=== PATIENT | female | born 1970 | race Caucasian/White ===

== ENCOUNTER → 2020-03-03 | Outpatient (CLI) | payer BC, SELFPAY ==
[2020-03-03 10:42] VITALS: BMI 24.5
[2020-03-08 22:34] LABS: HPV APTIMA, High Risk Negative (Negative)
== END | disposition home or self-care (01) ==
LOC: LABSPEC 13:51
PROVIDERS: PCP Family Medicine; Referring Provider Obstetrics & Gynecology; Visit Provider Obstetrics & Gynecology
DX: Z12.4 Encounter for screening for malignant neoplasm of cervix (principal)
CPT/HCPCS: 87624; 88175; G0145

== ENCOUNTER → 2020-03-24 08:50 | Outpatient (CLI) | payer BC, SELFPAY ==
[2020-03-03 10:42] VITALS: BMI 24.5
--- NOTE | 2020-03-24 08:51 | BI_ITS ---
MAMMOGRAPHY - BILATERAL DIAGNOSTIC REASON FOR EXAM: Female, 49 years old. History of left breast lump since May 2019. Occasional tenderness. PERTINENT HISTORY: TECHNIQUE: Digital bilateral breast seamus (3D mammographic acquisition) in the CC and MLO projections. 2-D mediolateral oblique (MLO) and craniocaudad (CC) views of both breasts were obtained. An exaggerated craniocaudad view of the left breast was obtained as well. CAD: Full Field Digital Mammography with Computer Added Detection was performed. COMPARISON: Comparison is made with prior outside examination dated 05/21/2019. FINDINGS: Breast Composition: The breasts are heterogeneously dense, which may obscure small masses. There are no dominant masses or suspicious calcifications. Stable benign-appearing bilateral axillary. No other significant abnormalities are identified. There has been no significant change since the prior study. BI/DIAG MAMM W/CAD, BILAT IMPRESSION: Stable bilateral diagnostic mammogram. With the patient''s history of a palpable lump in the axillary region of the left breast, correlation with ultrasound is recommended. ASSESSMENT CATEGORY: BIRADS Category 0: Incomplete. Need additional imaging evaluation. A letter regarding these results will be sent to the patient by the facility within 30 days. Approximately 10% of breast cancers are not detected by mammography. A normal mammogram should not delay biopsy of a clinically suspicious abnormality. Electronically Signed: Gwyn Nguyen, at 10:39 EDT , Service support ,
--- NOTE | 2020-03-24 08:51 | US_ITS ---
STUDY: ULTRASOUND BREAST - LEFT REASON FOR EXAM: Female, 49 years old. Palpable lump left breast. TECHNIQUE: Axial and longitudinal images of the LEFT breast were performed with a high resolution ultrasound transducer. # OF IMAGES: 13 COMPARISON: Comparison is made with prior mammogram done earlier today. FINDINGS: LEFT Breast: The palpable abnormality corresponds to a 1.1 cm x 1.9 cm x 0.6 cm benign-appearing lymph node. US/Breast Limited Unilateral IMPRESSION: The palpable abnormality corresponds to a 1.1 cm x 1.9 cm x 0.6 cm benign-appearing lymph node. ASSESSMENT CATEGORY: BIRADS Category 2: Benign. A letter regarding these results will be sent to the patient by the facility within 30 days. Electronically Signed: Gwyn Nguyen, at 12:30 EDT , Service support ,
== END ==
PROVIDERS: PCP Family Medicine; Referring Provider Obstetrics & Gynecology; Visit Provider Obstetrics & Gynecology
DX: N63.20 Unspecified lump in the left breast, unspecified quadrant (principal)
CPT/HCPCS: 76642; 77062; 77066; G0279

== ENCOUNTER → 2021-04-14 08:45 | Outpatient (CLI) | payer BC, SELFPAY ==
--- NOTE | 2021-04-14 08:46 | BI_ITS ---
MAMMOGRAPHY - BILATERAL SCREENING REASON FOR EXAM: Female, 50 years old. Routine annual screening examination. PERTINENT HISTORY: Non-contributory. TECHNIQUE: Digital bilateral breast jorge (3D mammographic acquisition) in the CC and MLO projections. 2-D mediolateral oblique (MLO) and craniocaudad (CC) views of both breasts were obtained. CAD: Full Field Digital Mammography with Computer Added Detection was performed. COMPARISON: Comparison is made with prior study of 03/24/2020. FINDINGS: Breast Composition: The breasts are extremely dense, which lowers the sensitivity of mammography. There is a 1.5 cm x 1.1 cm nodular density in the upper anterior slightly medial aspect of the right breast. Correlation with ultrasound is recommended. No other significant abnormalities are identified. BI/SCRN MAMM (CAD)W/JORGE BILAT IMPRESSION: There is a new 1.5 cm x 1.1 cm nodular density in the upper anterior slightly medial aspect of the right breast. Targeted ultrasound examination is recommended for further evaluation. ASSESSMENT CATEGORY: BIRADS Category 0: Incomplete. Need additional imaging evaluation. A letter regarding these results will be sent to the patient by the facility within 30 days. Approximately 10% of breast cancers are not detected by mammography. A normal mammogram should not delay biopsy of a clinically suspicious abnormality. [id number] Electronically Signed: Gwyn Nguyen MD at 9:58 EDT , Service support ,
== END ==
PROVIDERS: PCP Family Medicine; Referring Provider Obstetrics & Gynecology; Visit Provider Obstetrics & Gynecology
DX: Z12.31 Encounter for screening mammogram for malignant neoplasm of breast (principal)
CPT/HCPCS: 77063; 77067

== ENCOUNTER → 2021-04-18 07:59 | Outpatient (CLI) | payer BC, SELFPAY ==
--- NOTE | 2021-04-18 08:01 | US_ITS ---
STUDY: ULTRASOUND BREAST - RIGHT REASON FOR EXAM: Female, 50 years old. Abnormal screening mammogram TECHNIQUE: Axial and longitudinal images of the RIGHT breast were performed with a high resolution ultrasound transducer. # OF IMAGES: 25 COMPARISON: Diagnostic mammogram earlier today, screening mammogram 04/14/2021 FINDINGS: RIGHT Breast: Heterogeneous background echotexture. Multiple longitudinal transverse ultrasound images of the upper inner quadrant of the right breast failed to demonstrate a discrete solid or cystic mass most consistent with normal breast parenchyma.: US/Breast Limited Unilateral IMPRESSION: Normal diagnostic mammogram and right breast ultrasound. A routine screening mammogram is recommended one year. ASSESSMENT CATEGORY: BIRADS Category 1: Negative. A letter regarding these results will be sent to the patient by the facility within 30 days. Electronically Signed: Abdi Cantor MD at 10:46 EDT Tel , Service support ,
--- NOTE | 2021-04-18 08:11 | BI_ITS ---
MAMMOGRAPHY - UNILATERAL DIAGNOSTIC: RIGHT BREAST REASON FOR EXAM: Female, 50 years old. RT ABNORMAL MAMM PERTINENT HISTORY: Non-contributory. TECHNIQUE: Digital examination. Mediolateral oblique (MLO) and craniocaudad (CC) views of the breast were obtained. CAD: COMPARISON: 04/14/2021 FINDINGS: Breast Composition: The breasts are heterogeneously dense, which may obscure small masses. Focal compression views do not confirm a mass in the upper outer quadrant right breast most consistent with normal breast parenchyma. Ultrasound will be obtained. No other significant abnormalities are identified. BI/DIAG MAMM W/CAD, UNILAT IMPRESSION: Further ultrasonographic evaluation recommended, as described above. ASSESSMENT CATEGORY: BIRADS Category 0: Incomplete. Need additional imaging evaluation. A letter regarding these results will be sent to the patient by the facility within 30 days. FOLLOW-UP RECOMMENDATION: Ultrasound recommended. (I) Approximately 10% of breast cancers are not detected by mammography. A normal mammogram should not delay biopsy of a clinically suspicious abnormality. Electronically Signed: Abdi Cantor MD at 10:45 EDT Tel , Service support ,
== END ==
PROVIDERS: PCP Family Medicine; Referring Provider Obstetrics & Gynecology; Visit Provider Obstetrics & Gynecology
DX: R92.2 Inconclusive mammogram (principal); R92.8 Other abnormal and inconclusive findings on diagnostic imaging of breast
CPT/HCPCS: 76642; 77065

== ENCOUNTER → 2022-06-14 | Outpatient (CLI) | payer BC, SELFPAY ==
--- NOTE | 2022-06-14 08:11 | BI_ITS ---
MAMMOGRAPHY - BILATERAL SCREENING REASON FOR EXAM: Female, 51 years old. Routine annual screening examination. PERTINENT HISTORY: Non-contributory. TECHNIQUE: Digital bilateral breast jorge (3D mammographic acquisition) in the CC and MLO projections. 2-D mediolateral oblique (MLO) and craniocaudad (CC) views of both breasts were obtained. CAD: Full Field Digital Mammography with Computer Added Detection was performed. COMPARISON: Comparison is made with prior study 04/14/2021 and 04/18/2021. FINDINGS: Breast Composition: The breasts are heterogeneously dense, which may obscure small masses. There are no dominant masses or suspicious calcifications. No other significant abnormalities are identified. There has been no significant change since the prior study. BI/SCRN MAMM (CAD)W/JORGE BILAT IMPRESSION: Stable bilateral screening mammogram. Yearly follow-up mammogram recommended. (A) ASSESSMENT CATEGORY: BIRADS Category 1: Negative. A letter regarding these results will be sent to the patient by the facility within 30 days. Approximately 10% of breast cancers are not detected by mammography. A normal mammogram should not delay biopsy of a clinically suspicious abnormality. [id number] Electronically Signed: Gwyn Nguyen MD at 9:38 EST ,
== END | disposition home or self-care (01) ==
PROVIDERS: PCP Family Medicine; Visit Provider Obstetrics & Gynecology
DX: Z12.31 Encounter for screening mammogram for malignant neoplasm of breast (principal)
CPT/HCPCS: 77063; 77067

== ENCOUNTER → 2023-09-16 | Outpatient (CLI) | payer BC, SELFPAY ==
--- NOTE | 2023-09-16 09:08 | BI_ITS ---
MAMMOGRAPHY - BILATERAL SCREENING 3-D TOMOSYNTHESIS REASON FOR EXAM: Female, 53 years old. breast cancer screening PERTINENT HISTORY: No significant family history. TECHNIQUE: 2-D mammograms and 3-D Tomosynthesis of the breast (s) were performed. CAD was performed. COMPARISON: 08/04/2021 FINDINGS: The breast composition is heterogeneously dense that can obscure small breast masses. Scattered benign calcifications are seen. No dense spiculated masses or suspicious microcalcifications are identified. No architectural distortion is identified. There is no skin thickening or retraction. There has been no significant change since the prior study. BI/SCRN MAMM (CAD)W/JORGE BILAT IMPRESSION: No mammographic signs of malignancy. Routine yearly mammograms recommended. ASSESSMENT CATEGORY: BIRADS Category 1: Negative. A letter regarding these results will be sent to the patient by the facility within 30 days. FOLLOW UP RECOMMENDATION: Yearly follow up mammogram recommended. (A) Approximately 10% of breast cancers are not detected by mammography. A normal mammogram should not delay biopsy of a clinically suspicious abnormality. Electronically Signed: Abdi Cantor MD at 16:16 EST ,
--- OUTSIDE RECORDS SUMMARY | 2023-09-16 09:47 | XMS RPT_ITS | CCD ---
Author Name Unknown Address [address] [place] [address] Organization [facility] Care Team Providers Care Optical Glass Inspector Name Role Phone BRISA SHAH () Unavailable Unav ailBRISA Gutiérrez Primary Care Unava ilJOHN Wells Attending Unavailable JOHN PAREKH Admitting Unavailable JOHN PAREKH Referring Unavailable BRISA SHAH Primary Care Unava ilable Brisa Shah Primary Care Provider Brisa Shah Unavailable Makayla Read Unavailable Unavailabl Brisa Souza MD Primary Care Provider Brisa Shah MD Primary Care Provider Brisa Shah MD Primary Care Provider BRISA SHAH Primary Care Unavailab RAMONE Matamoros Attending Unavailable BRISA SHAH Attending Unavailab BRISA Braga Primary Care Unavailab JETT Matthews Attending Unavailable BRISA SHAH Primary Care Unavailab RAMONE [place]os Referring Unavailable BRISA SHAH Primary Care Unavailab BRISA Braga Primary Care Unavailab le OMARLOGRAMONE FLOYD Referring Unavailable Allergies Allergy Classification Reported Allergen(s) Allergy Type Date of Onset Reaction(s) Facility (12 sources) peanut; Translations: [PEANUTS] Propensity to adverse reactions to food (disorder) 05-06-20 14 Anaphylaxis [facility] [place] [facility] (14 sources) Sulfonamides (Antibiotic); Translations: [SULFA (SULFONAMIDE ANTIBIOTICS)] Propensity to adverse reactions to drug (disorder) 05-06-20 14 Rash [facility] [place] [facility] (3 sources) peanut allergenic extract; Translations: [PEANUT] Drug Allergy 05-06-20 Anaphylaxis [facility] (1 source) Codeine Drug Allergy Unknown [facility] (3 sources) Glucocorticoid; Translations: [CORTICOSTEROIDS (GLUCOCORTICOIDS)] Propensity to adverse reactions to drug 06-07-20 Other: See Comments [facility] Work Phone: (7 sources) Glucocorticoid preparation Propensity to adverse reactions to drug 06-07-20 Other: See Comments [facility] Work Phone: Medications Current Medications Medication Drug Class(es) Dates Sig (Normalized) Sig (Original) albuterol 90 mcg/actuation inhaler (1 source) Start: 01-31-2018 albuterol 90 mcg/actuation inhaler Inhale 2 puffs . 0 01/31/2018 Active famotidine 20 mg oral tablet (2 sources) Histamine-2 Receptor Antagonist Start: 06-27-2018 take 1 tablet by mouth twice daily famotidine (PEPCID) 20 MG tablet Take 20 mg by mouth 2 (two) times a day . 2 06/27/2018 Active polyethylene glycol 3350 199422 mg / potassium chloride 2980 mg / sodium bicarbonate 6720 mg / sodium chloride 5840 mg / sodium sulfate 76561 mg powder for oral solution (1 source) Osmotic Laxative Start: 08-21-2022 End: 08-21-2022 peg 3350-electrolytes (COLYTE) 240-22.72-6.72 -5.84 gram solution Take 4,000 mL by mouth one time only for 1 dose. 1 Each 0 08/21/2022 08/21/2022 Active Completed/Discontinued Medications Medication Drug Class(es) Dates Sig (Normalized) Sig (Original) [id number] 200 actuat albuterol 0.09 mg/actuat metered dose inhaler (13 sources) beta2-Adrenergic Agonist Start: 08-21-2022 End: 05-31-2023 take 2 puff(s) by inhalation every four hours as needed for wheezing albuterol HFA (VENTOLIN HFA) 90 mcg/actuation inhaler Inhale 2 Puffs as instructed every 4 hours as needed for wheezing/shortnes s of breath. 1 Each 0 05/31/2023 Active Problems Active Problems Problem Classification Problem Date Documented Date Episodic/Chronic Allergic reactions (1 source) Allergy to peanut; Translations: [Allergy to peanuts] Episodic Asthma (9 sources) Exercise-induced asthma; Translations: [Exercise induced bronchospasm] Onset: 10-30-2017 10-30-2017 Chronic Cardiac dysrhythmias (1 source) Palpitations; Translations: [Palpitations] Onset: 02-17-2018 Episodic Mycoses (1 source) Pityriasis versicolor; Translations: [Pityriasis versicolor] Episodic Nutritional deficiencies (2 sources) Vitamin D deficiency; Translations: [Vitamin D deficiency, unspecified] Onset: 08-21-2022 Chronic Open wounds of extremities (2 sources) Laceration of finger; Translations: [Open wound of finger(s), without mention of complication] 04-16-2021 Episodic Osteoarthritis (3 sources) Localized, primary osteoarthritis; Translations: [Osteoarthrosis of the carpometacarpal joint of the thumb] Onset: 10-19-2015 10-19-2015 Chronic Other connective tissue disease (2 sources) Ganglion cyst; Translations: [Ganglion, unspecified site] Episodic Other connective tissue disease (9 sources) Fibromyalgia; Translations: [Fibromyalgia] 01-31-2018 Episodic Other connective tissue disease (1 source) Ganglion cyst of the right volar wrist; Translations: [Ganglion, right wrist] Episodic Other connective tissue disease (1 source) Prepatellar bursitis of left knee; Translations: [Prepatellar bursitis, left knee] Onset: 10-19-2015 10-19-2015 Other non-traumatic joint disorders (1 source) Knee pain; Translations: [Acute pain of left knee] Episodic Other non-traumatic joint disorders (2 sources) Pain in left knee; Translations: [Pain in left knee] Onset: 09-12-2018 Episodic Other upper respiratory infections (1 source) Acute upper respiratory infection, unspecified; Translations: [Viral URI with cough] Onset: 07-18-2023 Episodic Sprains and strains (3 sources) Sprain of unspecified site of left knee, initial encounter; Translations: [Sprain of left knee, unspecified ligament, initial encounter] Onset: 09-12-2018 Episodic Unclassified (2 sources) LACERATION TO RIGHT INDEX FINGER 04-15-2021 Past or Other Problems Problem Classification Problem Date Documented Da te Episodic/Chronic Other connective tissue disease (1 source) Prepatellar bursitis, left knee; Translations: [Prepatellar bursitis, left knee] Onset: 10-19-2015 10-19-2015 Episodic Other screening for suspected conditions (not mental disorders or infectious disease) (8 sources) Patient encounter status; Translations: [Encounter for screening mammogram for malignant neoplasm of breast] Onset: 08-21-2022 Episodic Results Test Name Value Interpretation Reference Range Facil ity Vital Signs Date Time Vital Sign Value Performing Clinician Faci lity 09-20-2022 11:40-0500 Diastolic blood pressure 65 mm[Hg] Jett Braxton MD Work Phone: [facility] 09-20-2022 11:40-0500 Heart rate 51 /min Jett Braxton MD Work Phone: [facility] 09-20-2022 11:40-0500 SaO2% (BldA) [Mass fraction] 100 % Jett Braxton MD Work Phone: [facility] 09-20-2022 11:40-0500 Systolic blood pressure 107 mm[Hg] Jett Braxton MD Work Phone: [facility] 09-20-2022 11:20-0500 Respiratory rate 16 /min Jett Braxton MD Work Phone: [facility] 09-20-2022 10:37-0500 Body temperature 98.49 [degF] Jett Braxton MD Work Phone: [facility] 08-21-2022 07:58-0500 Body height 168 cm Ramone Podlogar HEEL ATTACHER.ANCHOR OPERATOR Work Phone: [facility] 08-21-2022 07:58-0500 Body weight 67.22 kg Ramone Podlogar HEEL ATTACHER.ANCHOR OPERATOR Work Phone: [facility] 08-21-2022 07:58-0500 Diastolic blood pressure 82 mm[Hg] Ramone Podlogar HEEL ATTACHER.ANCHOR OPERATOR Work Phone: [facility] 08-21-2022 07:58-0500 Heart rate 82 /min Ramone Podlogar HEEL ATTACHER.ANCHOR OPERATOR Work Phone: [facility] 08-21-2022 07:58-0500 Respiratory rate 16 /min Ramone Podlogar HEEL ATTACHER.ANCHOR OPERATOR Work Phone: [facility] 08-21-2022 07:58-0500 SaO2% (BldA) [Mass fraction] 98 % Ramone Podlogar HEEL ATTACHER.ANCHOR OPERATOR Work Phone: [facility] 08-21-2022 07:58-0500 Systolic blood pressure 112 mm[Hg] Ramone Podlogar HEEL ATTACHER.ANCHOR OPERATOR Work Phone: [facility] 12-14-2021 16:26-0400 Body weight 66.13 kg Brisa Shah MD Work Phone: [facility] 12-14-2021 16:26-0400 Diastolic blood pressure 70 mm[Hg] Brisa Shah MD Work Phone: [facility] 12-14-2021 16:26-0400 Heart rate 73 /min Brisa Shah MD Work Phone: [facility] 12-14-2021 16:26-0400 Respiratory rate 16 /min Brisa Shah MD Work Phone: [facility] 12-14-2021 16:26-0400 SaO2% (BldA) [Mass fraction] 99 % Brisa Shah MD Work Phone: [facility] 12-14-2021 16:26-0400 Systolic blood pressure 104 mm[Hg] Brisa Shah MD Work Phone: [facility] 04-15-2021 23:33-0400 Body height 170.1 cm Brisa Shah Other Phone: [facility] 04-15-2021 23:33-0400 Body temperature 96.98 [degF] Brisa Shah Other Phone: [facility] 04-15-2021 23:33-0400 Body weight 61.5 kg Brisa Shah Other Phone: [facility] 04-15-2021 23:33-0400 Diastolic blood pressure 85 mm[Hg] Brisa Shah Other Phone: [facility] 04-15-2021 23:33-0400 Heart rate 76 /min Brisa Shah Other Phone: [facility] 04-15-2021 23:33-0400 Respiratory rate 18 /min Brisa Shah Other Phone: [facility] 04-15-2021 23:33-0400 SaO2% (BldA) [Mass fraction] 100 % Brisa Shah Other Phone: [facility] 04-15-2021 23:33-0400 Systolic blood pressure 129 mm[Hg] Brisa Shah Other Phone: [facility] 09-12-2018 18:50-0500 BMI (Body Mass Index) 22.81 kg/m2 John Parekh [facility] 09-12-2018 18:50-0500 Body Temperature 98.1 [degF] John Parekh [facility] 09-12-2018 18:50-0500 BP Diastolic 77 mm[Hg] John Parekh [facility] 09-12-2018 18:50-0500 BP Systolic 112 mm[Hg] John Parekh [facility] 09-12-2018 18:50-0500 Height 172.7 cm John Parekh [facility] 09-12-2018 18:50-0500 Pulse (Heart Rate) 78 /min John Parekh [facility] 09-12-2018 18:50-0500 Pulse Oximetry 98 % John Parekh [facility] 09-12-2018 18:50-0500 Respiratory Rate 18 /min John Parekh [facility] 09-12-2018 18:50-0500 Weight 68.04 kg John Parekh [facility] Encounters Encounter Date Encounter Type Care Provider Facility Start: 07-24-2023 ambulatory Brisa Shah MD Work Phone: [facility] [place] Start: 07-18-2023 End: 07-19-2023 ambulatory BRISA SHAH Facility:[facility] Start: 05-31-2023 Refill Brisa Shah MD Work Phone: Radiology Procedures Date Procedure Procedure Detail Performing Clinician Start: 09-20-2022 Colonoscopy flx dx w/collj spec when pfrmd Ramone Podlogar HEEL ATTACHER.ANCHOR OPERATOR Work Phone: Start: 09-20-2022 Colonoscopy Jett holder MD Work Phone: Start: 08-21-2022 Lipid 1996 panel - S kevin or Plasma Jett Braxton MD Work Phone: Start: 06-14-2022 Mammography Ramone Wrightl ogantelmo HEEL ATTACHER.ANCHOR OPERATOR Work Phone: Start: 06-12-2021 Adult depression screening assessment Brisa Shah MD Work Phone: Start: 04-14-2021 Mammography Celestine Shah MD Work Phone: Start: 09-13-2018 Radiologic examinati on knee 3 views John Lemajose elias Parekh Work Phone: Plan of Treatment Date Care Activity Detail Author Start: 09-20-2032 Colonoscopy Colonoscopy [facility] Start: 09-20-2032 Colorectal Cancer Screening Colorectal Cancer Screening [facility] Start: 09-20-2032 Screening for malign ant neoplasm of colon [facility] Start: 06-07-2030 Urine microalbumin profile [facility] Start: 08-21-2027 Lipid 1996 panel - S kevin or Plasma Lipid Screening [facility] Start: 08-21-2027 Lipid panel Lipid Screening [facility] Start: 08-21-2027 LIPID SCREEN LIPID SCREEN [facility] Start: 06-12-2026 LIPID SCREEN LIPID SCREEN [facility] Start: 04-28-2026 HPV TESTING HPV TESTING [facility] Start: 04-28-2026 PAP TESTING PAP TESTING [facility] Start: 04-28-2026 Screening for malign ant neoplasm of cervix [facility] Start: 08-21-2025 [facility] Start: 08-21-2025 Diabetes Screening Diabetes Screenin g [facility] Start: 07-18-2024 Annual PCP Team Testing Director bhaskar Disease Visit Annual PCP Team Chronic Disease Visit [facility] Start: 06-12-2024 DIABETES SCREEN DIABETES SCREEN [facility] Start: 08-21-2023 ANNUAL PCP TEAM FRONT END ASSISTANT BHASKAR DISEASE VISIT ANNUAL PCP TEAM CHRONIC DISEASE VISIT [facility] Start: 08-21-2023 COVID-19 VACCINE (#1) COVID-19 VACCI NE (#1) [facility] Immunizations Immunization Date Immunization Notes Care Provider Fa cili 06-07-2020 pneumococcal polysaccharide vaccine, 23 valent Brisa Shah MD Work Phone: [facility] 06-07-2020 tetanus toxoid, redu zen diphtheria toxoid, and acellular pertussis vaccine, adsorbed Brisa Shah MD Work Phone: [facility] Payers Date Payer Category Payer Unknown 2009 Unknown [id number] 2009 Unknown [employer] OUT OF [facility] xxxxxxxxxxxx 2009-Present xxxxxxxxxxxx [id number] 2009 Unknown [id number] 1969 Unknown [id number] 1970 Unknown [id number] Social History Date Type Detail Facility Start: 09-12-2018 End: 08-21-2022 Tobacco smoking status NHIS Never smoker [facility] Work Phone: Start: 1970 Sex Assigned At Not on file O hiILeal Start: 09-12-2018 End: 08-21-2022 Tobacco use and exposure Never used [facility] Start: 09-12-2018 Alcohol intake Current non-dr levers 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 of alcohol (finding) [facility] Tobacco smoking consumption unknown [facility] Start: 12-14-2021 End: 07-18-2023 Alcohol intake Current drinker of alcohol (finding) [facility] Start: 01-31-2018 History SDOH Alcohol Comment rarely [facility] Start: 12-03-2021 End: 01-08-2022 Exposure to SARS-CoV-2 (event) Not sure [facility] Start: 08-08-2022 End: 09-20-2022 History of Social function [facility] Work Phone: Start: 08-08-2022 End: 09-20-2022 Tobacco use panel [facility] Work Phone: Adult Depression Screening Assessment 0 [facility] Work Phone: Clinical Notes 12-14-2021 to 07-24-2023 Telephone Encounter - chaseSujatha martinica - 05/31/2023 10:19 AM Jett Craig MD - 09/20/2022 11:30 AM Ava Haddad RN - 09/20/2022 11:20 AM ESTPatient Instructions Note Date & Type Note Facility 07-24-2023 Note Patient Outreach (IN [facility]) NANNETTE HEATON ([id number]) 1970 F Date Time Provider Department 07/24/23 BRISA SHAH During your visit today, we recorded the following information about you: Allergies As of Date: 07/24/2023 Noted Allergy Reaction PEANUTS 05/06/2014 10 - Anaphylaxis STEROIDS (CORTICOSTEROIDS (GLUCOC*06/07/2020 14 - Other: See Comments Comments: Avoid steroid after retina surgery 02/2020. Vision change 2/2 cortisol SULFA (SULFONAMIDE ANTIBIOTICS) 05/06/2014 2 - Rash Date Reviewed: 07/18/2023 Reviewed by: Rocio Aragon LPN - Fully Assessed Visit Diagnosis:Encounter for screening mammogram for breast cancer [Z12.31] Order(s):[facility] SCREENING [[id number]] Order #: [id number] FUTURE Prescriptions as of 07/29/2023 - albuterol HFA (VENTOLIN HFA) 90 mcg/actuation inhaler Inhale 2 Puffs as instructed every 4 hours as needed for wheezing/shortness of breath. - EPINEPHrine (EPIPEN) 0.3 mg/0.3 mL auto-injector Inject 0.3 mL intramuscularly as needed. - Selenium Sulfide 2.25 % sham Apply to affected area as needed (tinea versicolor). - loratadine (CLARITIN) 10 mg tablet Take 10 mg by mouth as needed. - ZINC ACETATE ORAL Take by mouth. - Cholecalciferol, Vitamin D3, 125 mcg (5,000 unit) cap Take 1 capsule by mouth once daily. - vitamin b complex tab Take 1 tablet by mouth once daily. - multivitamin tablet Take 1 tablet by mouth once daily. Problem List As Of Date 07/24/2023 Noted Resolved Exercise-induced asthma [J45.990] 10/30/2017 Fibromyalgia [M79.7] Encounter Status:Closed by [employer], [employer] on 07/29/23 [facility] 07-18-2023 Note HNO ID: [id number] Author: BRISA SHAH MD Service: ? Author Type: Physician Type: Progress Notes Filed: 07/18/2023 14:23 Note Text: Chief Complaint Patient presents with: Cough: X 2 weeks- negative covid test 07/06/23 Ear Problem: Feel clogged Sinus Problem HPI Nannette Heaton is a 53 year old female who presents here today for Above Complaints. Accompanied today by her daughter. Patient complaining of dry cough, sinus congestion/pain which started the week of . Treating with claritin and was using humidifier and warm compresses and the sinus symptoms have improved, but still has the cough. Exacerbated with talking and cold air. Using albuterol inhaler which does not help. Admits to post nasal drip. Denies fever/chills, SOB, wheezing, chest pain, chest congestion, sore throat. Symptoms improving. Past medical history, appointments, medications, allergies reviewed. Previous Medical History PAST MEDICAL HISTORY Diagnosis Date Arthritis Eczema Exercise-induced asthma Fibromyalgia GERD (gastroesophageal reflux disease) History of COVID-19 01/2021 Mitral valve prolapse Retinal vascular abnormality 02/2020 Tinea versicolor Previous Surgical History PAST SURGICAL HISTORY Procedure Laterality Date COLONOSCOPY 09/20/2022 repeat in 10 years EYE SURGERY HX PAST SURGICAL HISTORY OF Left 02/2020 retina surgery, cortisol buildup SKIN BIOPSY HX Family History FAMILY HISTORY Problem Relation Age of Onset Thyroid Father Prostate Cancer Father other (Hypertenstion) Father other (Elevated Cholesterol) Father Diabetes Sister Diabetes Sister Diabetes Brother Diabetes Mother Depression Son Patient Allergies ALLERGIES Allergen Reactions Peanuts Anaphylaxis Steroids [Corticost* Other: See Comments Avoid steroid after retina surgery 02/2020. Vision change / cortisol Sulfa (Sulfonamide * Rash Current Medications Current Outpatient Medications on File Prior to Visit Medication Sig albuterol HFA (VENTOLIN HFA) 90 mcg/actuation inhaler Inhale 2 Puffs as instructed every 4 hours as needed for wheezing/shortness of breath. EPINEPHrine (EPIPEN) 0.3 mg/0.3 mL auto-injector Inject 0.3 mL intramuscularly as needed. Selenium Sulfide 2.25 % sham Apply to affected area as needed (tinea versicolor). loratadine (CLARITIN) 10 mg tablet Take 10 mg by mouth as needed. ZINC ACETATE ORAL Take by mouth. Cholecalciferol, Vitamin D3, 125 mcg (5,000 unit) cap Take 1 capsule by mouth once daily. vitamin b complex tab Take 1 tablet by mouth once daily. multivitamin tablet Take 1 tablet by mouth once daily. No current facility-administered medications on file prior to visit. Social History Social History Tobacco Use Smoking status: Never Smokeless tobacco: Never Vaping Use Vaping Use: Never used Substance Use Topics Alcohol use: Yes Comment: rarely Drug use: No Review of Symptoms REVIEW OF SYSTEMS See HPI EXAM: BP 102/68 Pulse 71 Temp 36.1 ?C (97 ?F) Resp 18 LMP 05/29/2021 (Exact Date) SpO2 97% General Appearance: Well appearing, alert, in no acute distress, well-hydrated, well nourished.. Skin: Skin color, texture, turgor normal, no suspicious rashes or lesions. Head: Normocephalic, no masses, lesions, tenderness or abnormalities. Eyes: Anicteric sclera. Pupils are equally round and reactive to light. Extraocular movements are intact. . Ears: External ears normal, canals clear. Nose/Sinuses: Nares normal, septum midline, mucosa normal, no drainage or sinus tenderness. Oropharynx: Lips, mucosa, and tongue normal, teeth and gums normal, oropharynx normal. Neck: Supple, no adenopathy; thyroid symmetric, normal size, no bruits. Lungs: Lungs clear to auscultation. No wheezing, rhonchi, rales.. Heart: RRR without murmur, gallop, or rubs. No ectopy. Health Maintenance List Shingrix Vaccine(1 of 2) Never done Influenza Vaccine(1) Never done Mammogram Screening due on 06/14/2023 Depression Assessment due on 07/15/2023 Hepatitis B Vaccine(1 of 3 - 3-dose series) due on 08/21/2023 Spirometry due on 08/21/2023 Covid-19 Vaccine(1) due on 08/21/2023 Pneumococcal Vaccine(2 of 2 - PCV) due on 08/21/2023 Annual PCP Team Chronic Disease Visit due on 08/21/2023 Diabetes Screening due on 08/21/2025 Pap Testing due on 04/28/2026 HPV Testing due on 04/28/2026 Lipid Screening due on 08/21/2027 DTaP,Tdap,Td Vaccine(4 - Td or Tdap) due on 06/07/2030 Colorectal Cancer Screening due on 09/20/2032 Hepatitis C Screening Discontinued HIV Screening Discontinued ASSESSMENT/PLAN: 1. Viral URI with cough - ICD9: 465.9, ICD10: J06.9 - Discussed viral etiology and rationale for treatment. - Symptomatic treatment with prn analgesia - Supportive care with fluids and rest - The patient may also use OTC cough and cold meds as needed, warm salt water gargles, throat lozenges and/or OTC throat spray as neede (more content not included)... [facility] 05-31-2023 Miscellaneous Notes Patient has been identified by name and date of : Yes Last office visit in this department: Visit date not found RX INSTRUCTIONS: Patient aware RX will be sent to pharmacy. No need to notify patient. Patient phones requesting refills as follows: Requested Prescriptions Pending Prescriptions Disp Refills albuterol HFA (VENTOLIN HFA) 90 mcg/actuation inhaler 1 Each 0 Sig: Inhale 2 Puffs as instructed every 4 hours as needed for wheezing/shortness of breath. Please review and advise. Missy Owens documented in this encounter [facility] 09-20-2022 History and physical note SUBJECTIVE: This is a 52 year old that is here today for Above Complaints. Since last office visit has been in good health without ER visits or hospitalizations. Has exercise induced asthma. Notices it when really ho or cold. Doesn't typically pre treat with albuterol prior to exercise and does alright. Not sure where he inhaler is. Reports recurrent tinea versicolor. Took oral medication in the past but returned. Shampoo helps more. Reports she will be seeing a neurology epilepsy physician soon for it. PAST MEDICAL HISTORY PAST MEDICAL HISTORY Diagnosis Date Eczema Exercise-induced asthma Fibromyalgia GERD (gastroesophageal reflux disease) History of COVID-19 01/2021 Mitral valve prolapse Retinal vascular abnormality 02/2020 Tinea versicolor ALLERGIES Peanuts, Steroids [Corticosteroids (Glucocorticoids)], and Sulfa (Sulfonamide Antibiotics) MEDICATIONS CURRENT MEDICATIONS Current Outpatient Medications Medication Sig loratadine (CLARITIN) 10 mg tablet Take 10 mg by mouth as needed. (Patient not taking: Reported on 01/08/2022 ) ProAir RespiClick 90 mcg/actuation breath activated (albuterol sulfate) Inhale 2 Puffs as instructed every 4 hours as needed. EPINEPHrine (EPIPEN) 0.3 mg/0.3 mL auto-injector Inject 0.3 mL intramuscularly as needed. ZINC ACETATE ORAL Take by mouth. Selenium Sulfide 2.25 % sham Apply to affected area as needed (tinea versicolor). (Patient not taking: Reported on 01/08/2022 ) Cholecalciferol, Vitamin D3, 125 mcg (5,000 unit) cap Take 1 capsule by mouth once daily. vitamin b complex tab Take 1 tablet by mouth once daily. multivitamin tablet Take 1 tablet by mouth once daily. No current facility-administered medications for this visit. Medications and allergies reviewed by this provider. SOCIAL HISTORY SOCIAL HISTORY Social History Tobacco Use Smoking status: Never Smokeless tobacco: Never Vaping Use Vaping Use: Never used Substance Use Topics Alcohol use: Yes Comment: rarely Drug use: No REVIEW OF SYSTEMS GENERAL: No weight loss, malaise or fevers HEENT: Negative for frequent or significant headaches, No changes in hearing or vision, no nose bleeds or other nasal problems NECK: Negative for lumps, goiter, pain and significant neck swelling RESPIRATORY: Negative for cough, hemoptysis, wheezing, COPD, dyspnea or shortness of breath CARDIOVASCULAR: Negative for chest pain, leg swelling, hypertension, CHF or palpitations GI: No nausea, vomiting, or diarrhea : No history of dysuria, frequency or incontinence HEADER OPERATOR: Negative for abnormal vaginal bleeding, abnormal vaginal discharge MUSCULOSKELETAL: Reports has joint pain mostly in hands and feet some days worse than others SKIN: See HPI PSYCH: Negative for sleep disturbance, mood disorder and recent psychosocial stressors HEMATOLOGY/LYMPHOLOGY: Negative for prolonged bleeding, bruising easily or swollen nodes ENDOCRINE: Negative for cold or heat intolerance, polyuria, polydipsia and goiter NEURO: No history of headaches, syncope, paralysis, seizures or tremors All other reviewed and negative other than HPI. OBJECTIVE: BP 112/82 Pulse 82 Resp 16 Ht 168 cm (5' 6.14 ) Wt 67.2 kg (148 lb 3.2 oz) LMP 05/29/2021 (Exact Date) SpO2 98% BMI 23.82 kg/m . Vital signs reviewed by this provider. APPEARANCE Well appearing, alert, in no acute distress, well-hydrated, well nourished. EYES PERRLA, conjunctiva and sclera normal. EARS External ears normal, canals clear NECK Supple, no adenopathy; thyroid symmetric, normal size, no bruits HEART RRR with normal S1 and S2, no murmurs, no gallops, no JVD appreciated LUNG clear to auscultation. No wheezes, rhonchi or rales EXTREMITIES Extremities normal, No deformities, No skin discoloration, and No edema SKIN Tinea versicolor to back otherwise Skin color, texture, turgor normal, no suspicious rashes or lesions COLORECTAL CANCER SCREENING Never done SHINGRIX VACCINE(1 of 2) Never done DEPRESSION ASSESSMENT Never done INFLUENZA(1) due on 01/11/2023 HEPATITIS B(1 of 3 - 3-dose series) due on 08/21/2023 SPIROMETRY due on 08/21/2023 COVID-19 VACCINE(1) due on 08/21/2023 PNEUMOCOCCAL(2 - PCV) due on 08/21/2023 MAMMOGRAM due on 06/14/2023 ANNUAL PCP TEAM CHRONIC DISEASE VISIT due on 08/21/2023 DIABETES SCREEN due on 06/12/2024 PAP TESTING due on 04/28/2026 HPV TESTING due on 04/28/2026 LIPID SCREEN due on 06/12/2026 DTAP,TDAP,TD(3 - Td or Tdap) due on 06/07/2030 HEPATITIS C SCREENING Discontinued HIV SCREENING Discontinued ASSESSMENT/PLAN: 1. Annual physical exam - ICD9: V70.0, ICD10: Z00.00 (primary diagnosis) - Counseled on healthy diet and regular exercise - Calcium intake with supplements or by diet of 1000 mg/day for under 50, 3768-6916 mg/day for 50+ - Colorectal cancer screening recommended - agrees to Colonoscopy - Depression screening tool completed and reviewed with patient. Based on score and interview, patient is not at risk for depression and recommended no further intervention at this time. - Follow up for annual exam in one year - LIPID PANEL BASIC - COMP METABOLIC PANEL - CBC 2. Peanut allergy - ICD9: V15.01, ICD10: Z91.010 - EPINEPHRINE 0.3 MG/0.3 ML INJECTION, AUTO-INJECTOR 3. Tinea versicolor - ICD9: 111.0, ICD10: B36.0 - follow-up with dermatology as scheduled - SELENIUM SULFIDE 2.25 % SHAMPOO 4. Screening for colon cancer - ICD9: V76.51, ICD10: Z12.11 - COLONOSCOPY SCREENING 5. Screening for hyperlipidemia - ICD9: V77.91, ICD10: Z13.220 - LIPID PANEL BASIC 6. Vitamin D insufficiency - ICD9: 268.9, ICD10: E55.9 - VITAMIN D 25 HYDROXY Ramone Munoz, HEEL ATTACHER.ANCHOR OPERATOR UPDATED HISTORY AND PHYSICAL EXAMINATION SERVICE DATE: 09/20/2022 SERVICE TIME: 10:42 AM PHYSICAL EXAM MUST BE COMPLETED ON ADMISSION The History and Physical (completed in the past 30 days) has been reviewed and the patient has been examined. The contents accurately reflect the patient's condition with the following additions or revisions since the H&P was completed. Examination indicates no changes. This H&P can be found in the attached. SIGNATURE: Jett Braxton III, MD PATIENT NAME: Nannette Heaton DATE: September 20, 2022 TIME: 10:42 AM documented in this encounter [facility] 09-20-2022 Nurse Note Arrived in phase II via cart. Left lateral position. Sedated, but responds to verbal stimuli. Color normal; skin warm and dry. Respirations wnl and unlabored. Abdomen soft and with + bowel sounds in quads X 4. Patient resting comfortably. Dr. Braxton at with family to review procedure and recommendations. Ava Reyna RN documented in this encounter [facility] 08-22-2022 Miscellaneous Notes Patient telephoned and made aware of results and recommendations below. Voices understanding. Haydee Love LPN Please call patient and let her know her total cholesterol and LDL ( bad cholesterol) have increased since last check and are considered borderline high. Recommend she continue to exercise and decreased saturated fats in diet. The rest of her blood work is in acceptable ranges. Ramone Munoz APRN.EUSEBIA documented in this encounter [facility] 08-21-2022 Miscellaneous Notes Patient notified. Haydee Love LPN Order for Golytely sent.. Ramone Munoz APRN.EUSEBIA Patient stated she wants golytely no miralax. She wants to do the Golytely instead of the miralax prep? Ramone Munoz APRN.EUSEBIA Patient scheduled her colonoscopy on September 20, 2022 She is requesting to have Golytely Bowel Prep sent to [facility] [address] [place] [address] Mailed Golytely Bowel Prep Instructions to patient. documented in this encounter [facility] 08-21-2022 Note HNO ID: [id number] Author: Ramone Munoz APRN.CNP Service: ? Author Type: Nurse Practitioner Type: Progress Notes Filed: 08/21/2022 8:49 AM Note Text: 08/21/2022 Patient presents with: Physical SUBJECTIVE: This is a 52 year old that is here today for Above Complaints. Since last office visit has been in good health without ER visits or hospitalizations. Has exercise induced asthma. Notices it when really ho or cold. Doesn't typically pre treat with albuterol prior to exercise and does alright. Not sure where he inhaler is. Reports recurrent tinea versicolor. Took oral medication in the past but returned. Shampoo helps more. Reports she will be seeing a neurology epilepsy physician soon for it. PAST MEDICAL HISTORY Diagnosis Date Eczema Exercise-induced asthma Fibromyalgia GERD (gastroesophageal reflux disease) History of COVID-19 01/2021 Mitral valve prolapse Retinal vascular abnormality 02/2020 Tinea versicolor ALLERGIES Peanuts, Steroids [Corticosteroids (Glucocorticoids)], and Sulfa (Sulfonamide Antibiotics) MEDICATIONS Current Outpatient Medications Medication Sig loratadine (CLARITIN) 10 mg tablet Take 10 mg by mouth as needed. (Patient not taking: Reported on 01/08/2022 ) ProAir RespiClick 90 mcg/actuation breath activated (albuterol sulfate) Inhale 2 Puffs as instructed every 4 hours as needed. EPINEPHrine (EPIPEN) 0.3 mg/0.3 mL auto-injector Inject 0.3 mL intramuscularly as needed. ZINC ACETATE ORAL Take by mouth. Selenium Sulfide 2.25 % sham Apply to affected area as needed (tinea versicolor). (Patient not taking: Reported on 01/08/2022 ) Cholecalciferol, Vitamin D3, 125 mcg (5,000 unit) cap Take 1 capsule by mouth once daily. vitamin b complex tab Take 1 tablet by mouth once daily. multivitamin tablet Take 1 tablet by mouth once daily. No current facility-administered medications for this visit. Medications and allergies reviewed by this provider. SOCIAL HISTORY Social History Tobacco Use Smoking status: Never Smokeless tobacco: Never Vaping Use Vaping Use: Never used Substance Use Topics Alcohol use: Yes Comment: rarely Drug use: No REVIEW OF SYSTEMS GENERAL: No weight loss, malaise or fevers HEENT: Negative for frequent or significant headaches, No changes in hearing or vision, no nose bleeds or other nasal problems NECK: Negative for lumps, goiter, pain and significant neck swelling RESPIRATORY: Negative for cough, hemoptysis, wheezing, COPD, dyspnea or shortness of breath CARDIOVASCULAR: Negative for chest pain, leg swelling, hypertension, CHF or palpitations GI: No nausea, vomiting, or diarrhea : No history of dysuria, frequency or incontinence HEADER OPERATOR: Negative for abnormal vaginal bleeding, abnormal vaginal discharge MUSCULOSKELETAL: Reports has joint pain mostly in hands and feet some days worse than others SKIN: See HPI PSYCH: Negative for sleep disturbance, mood disorder and recent psychosocial stressors HEMATOLOGY/LYMPHOLOGY: Negative for prolonged bleeding, bruising easily or swollen nodes ENDOCRINE: Negative for cold or heat intolerance, polyuria, polydipsia and goiter NEURO: No history of headaches, syncope, paralysis, seizures or tremors All other reviewed and negative other than HPI. OBJECTIVE: BP 112/82 Pulse 82 Resp 16 Ht 168 cm (5' 6.14 ) Wt 67.2 kg (148 lb 3.2 oz) LMP 05/29/2021 (Exact Date) SpO2 98% BMI 23.82 kg/m? . Vital signs reviewed by this provider. APPEARANCE Well appearing, alert, in no acute distress, well-hydrated, well nourished. EYES PERRLA, conjunctiva and sclera normal. EARS External ears normal, canals clear NECK Supple, no adenopathy; thyroid symmetric, normal size, no bruits HEART RRR with normal S1 and S2, no murmurs, no gallops, no JVD appreciated LUNG clear to auscultation. No wheezes, rhonchi or rales EXTREMITIES Extremities normal, No deformities, No skin discoloration, and No edema SKIN Tinea versicolor to back otherwise Skin color, texture, turgor normal, no suspicious rashes or lesions COLORECTAL CANCER SCREENING Never done SHINGRIX VACCINE(1 of 2) Never done DEPRESSION ASSESSMENT Never done INFLUENZA(1) due on 01/11/2023 HEPATITIS B(1 of 3 - 3-dose series) due on 08/21/2023 SPIROMETRY due on 08/21/2023 COVID-19 VACCINE(1) due on 08/21/2023 PNEUMOCOCCAL(2 - PCV) due on 08/21/2023 MAMMOGRAM due on 06/14/2023 ANNUAL PCP TEAM CHRONIC DISEASE VISIT due on 08/21/2023 DIABETES SCREEN due on 06/12/2024 PAP TESTING due on 04/28/2026 HPV TESTING due on 04/28/2026 LIPID SCREEN due on 06/12/2026 DTAP,TDAP,TD(3 - Td or Tdap) due on 06/07/2030 HEPATITIS C SCREENING Discontinued HIV SCREENING Discontinued ASSESSMENT/PLAN: 1. Annual physical exam - ICD9: V70.0, ICD10: Z00.00 (primary diagnosis) - Counseled on healthy diet and regular exercise - Calcium intake with supplements or by diet of 1000 mg/day for under 50, 4040-0736 mg/day fo (more content not included)... [facility] 08-21-2022 Instructions Ramone Munoz APRN.EUSEBIA - 08/21/2022 8:03 AM EST Images from the original note were not included. Bowel Preparation Instructions for: Miralax-Gatorade Preparations IF YOU DO NOT FOLLOW THESE DIRECTIONS, YOUR COLONOSCOPY WILL BE CANCELLED. [place] Instructions: Your bowel must be empty so that your doctor can clearly view your colon. Follow all of the instructions in this handout EXACTLY as they are written. Do NOT eat any solid food the ENTIRE day before your colonoscopy. Buy your bowel preparation at least 5 days before your colonoscopy. Four (4) Dulcolax laxative tablets containing 5mg of bisacodyl each (NOT Dulcolax stool softener) One (1) 8.3oz. bottle Miralax (238 grams) or generic equivalent 2 x 32oz. Bottles of Gatorade (NOT RED) Diabetic Patients: Use G2 (Gatorade 2) TRANSPORTATION on the Day of Your Exam A responsible adult MUST be present with you at Check In prior to your colonoscopy and REMAIN in the endoscopy area until you are discharged. You are NOT ALLOWED to drive, take a taxi or bus, or leave the Endoscopy Center ALONE. If you do not have a responsible oil truck driver (family member or friend) with you to take you home, your exam cannot be done with sedation and will be cancelled. Please bring a list of all of your current medications, including any [id number] medications with you. Medications If you take insulin, diabetic medications or blood thinners such as Coumadin (warfarin), Plavix (clopidogrel), Ticlid (ticlopidine hydrochloride), Agrylin (anagrelide), Xarelto (Rivaroxaban), Pradaxa (Dabigatran), Eliquis (Apixaban), and Effient (Prasugrel). You MUST call the doctors who orders those medicines for instructions on altering the dosage before your colonoscopy. All other medications should be taken the day of the exam with a sip of water including ASPIRIN. Five (5) Days Before Your Colonoscopy Do NOT take medicines that stop diarrhea - such as Imodium, Kaopectate, or Pepto Bismol. Do NOT take fiber supplements - such as Metamucil, Citrucel, or Perdiem. Do NOT take products that contain iron - such as multi-vitamins (the label lists what is in the products). Three (3) Days Before Your Colonoscopy Do NOT eat high-fiber foods - such as popcorn, beans, seeds (flax, sunflower, quinoa), multigrain bread, nuts, salad/vegetables, or fresh and dried fruit. 1 Bowel Preparation Instructions for: Miralax-Gatorade Preparations One (1) Day Before Your Colonoscopy Only drink clear liquids the ENTIRE DAY before your colonoscopy. Do NOT eat any solid foods. Drink at least 8 ounces of clear liquids every hour after waking up. The clear liquids you can drink include: Clear Liquid (NO RED LIQUIDS) DO NOT DRINK Gatorade, Pedialyte or Powerade Clear broth or bouillon Coffee or tea (no milk or non-dairy creamer) Carbonated and non-carbonated soft drinks Jamie-Aid or other fruit flavored drinks Strained fruit juices (no pulp) Jell-O, popsicles, hard candy Water Alcohol Milk or non-dairy creamers Noodles or vegetables in soup Juice with pulp Liquid you cannot see through Do not use tobacco/vaping products Mix 1/2 of Miralax bottle (119 grams) in each 32 ounces of Gatorade bottle until dissolved. Keep cool in the refrigerator. DO NOT ADD ICE. The bowel preparation solution will be consumed in two parts. Part 1 5:00 PM - Evening before your colonoscopy Take 4 Dulcolax tablets. 6 PM - Evening before your colonoscopy Drink 32 oz. of the mixed solution. Drink an 8 oz. glass of bowel preparation every 15 minutes for a total of 4 glasses. Fifteen (15) minutes later, drink an 8 oz. glass of of clear liquids every 15 minutes for a total of 2 glasses. You may continue to drink clear liquids till midnight. Part 2 On the day of your colonoscopy you may drink clear liquids up to (three) 3 hours prior to procedure. 4 1/2 hours before your colonoscopy Take another 32 oz. bottle of mixed solution. Drink an 8 oz. glass of bowel prep every 15 minutes for a total of 4 glasses. Fifteen (15) minutes later, drink an 8 oz. glass of clear liquids every 15 minutes for a total of 2 glasses. You may continue to drink clear liquids up to (three) 3 hours before your exam. 06/2019 documented in this encounter [facility] 08-21-2022 History of Presen t illness Narrative 08/21/2022 Patient presents with: Physical SUBJECTIVE: This is a 52 year old that is here today for Above Complaints. Since last office visit has been in good health without ER visits or hospitalizations. Has exercise induced asthma. Notices it when really ho or cold. Doesn't typically pre treat with albuterol prior to exercise and does alright. Not sure where he inhaler is. Reports recurrent tinea versicolor. Took oral medication in the past but returned. Shampoo helps more. Reports she will be seeing a neurology epilepsy physician soon for it. PAST MEDICAL HISTORY Diagnosis Date Eczema Exercise-induced asthma Fibromyalgia GERD (gastroesophageal reflux disease) History of COVID-19 01/2021 Mitral valve prolapse Retinal vascular abnormality 02/2020 Tinea versicolor ALLERGIES Peanuts, Steroids [Corticosteroids (Glucocorticoids)], and Sulfa (Sulfonamide Antibiotics) MEDICATIONS Current Outpatient Medications Medication Sig loratadine (CLARITIN) 10 mg tablet Take 10 mg by mouth as needed. (Patient not taking: Reported on 01/08/2022 ) ProAir RespiClick 90 mcg/actuation breath activated (albuterol sulfate) Inhale 2 Puffs as instructed every 4 hours as needed. EPINEPHrine (EPIPEN) 0.3 mg/0.3 mL auto-injector Inject 0.3 mL intramuscularly as needed. ZINC ACETATE ORAL Take by mouth. Selenium Sulfide 2.25 % sham Apply to affected area as needed (tinea versicolor). (Patient not taking: Reported on 01/08/2022 ) Cholecalciferol, Vitamin D3, 125 mcg (5,000 unit) cap Take 1 capsule by mouth once daily. vitamin b complex tab Take 1 tablet by mouth once daily. multivitamin tablet Take 1 tablet by mouth once daily. No current facility-administered medications for this visit. Medications and allergies reviewed by this provider. SOCIAL HISTORY Social History Tobacco Use Smoking status: Never Smokeless tobacco: Never Vaping Use Vaping Use: Never used Substance Use Topics Alcohol use: Yes Comment: rarely Drug use: No REVIEW OF SYSTEMS GENERAL: No weight loss, malaise or fevers HEENT: Negative for frequent or significant headaches, No changes in hearing or vision, no nose bleeds or other nasal problems NECK: Negative for lumps, goiter, pain and significant neck swelling RESPIRATORY: Negative for cough, hemoptysis, wheezing, COPD, dyspnea or shortness of breath CARDIOVASCULAR: Negative for chest pain, leg swelling, hypertension, CHF or palpitations GI: No nausea, vomiting, or diarrhea : No history of dysuria, frequency or incontinence HEADER OPERATOR: Negative for abnormal vaginal bleeding, abnormal vaginal discharge MUSCULOSKELETAL: Reports has joint pain mostly in hands and feet some days worse than others SKIN: See HPI PSYCH: Negative for sleep disturbance, mood disorder and recent psychosocial stressors HEMATOLOGY/LYMPHOLOGY: Negative for prolonged bleeding, bruising easily or swollen nodes ENDOCRINE: Negative for cold or heat intolerance, polyuria, polydipsia and goiter NEURO: No history of headaches, syncope, paralysis, seizures or tremors All other reviewed and negative other than HPI. OBJECTIVE: BP 112/82 Pulse 82 Resp 16 Ht 168 cm (5' 6.14 ) Wt 67.2 kg (148 lb 3.2 oz) LMP 05/29/2021 (Exact Date) SpO2 98% BMI 23.82 kg/m . Vital signs reviewed by this provider. APPEARANCE Well appearing, alert, in no acute distress, well-hydrated, well nourished. EYES PERRLA, conjunctiva and sclera normal. EARS External ears normal, canals clear NECK Supple, no adenopathy; thyroid symmetric, normal size, no bruits HEART RRR with normal S1 and S2, no murmurs, no gallops, no JVD appreciated LUNG clear to auscultation. No wheezes, rhonchi or rales EXTREMITIES Extremities normal, No deformities, No skin discoloration, and No edema SKIN Tinea versicolor to back otherwise Skin color, texture, turgor normal, no suspicious rashes or lesions COLORECTAL CANCER SCREENING Never done SHINGRIX VACCINE(1 of 2) Never done DEPRESSION ASSESSMENT Never done INFLUENZA(1) due on 01/11/2023 HEPATITIS B(1 of 3 - 3-dose series) due on 08/21/2023 SPIROMETRY due on 08/21/2023 COVID-19 VACCINE(1) due on 08/21/2023 PNEUMOCOCCAL(2 - PCV) due on 08/21/2023 MAMMOGRAM due on 06/14/2023 ANNUAL PCP TEAM CHRONIC DISEASE VISIT due on 08/21/2023 DIABETES SCREEN due on 06/12/2024 PAP TESTING due on 04/28/2026 HPV TESTING due on 04/28/2026 LIPID SCREEN due on 06/12/2026 DTAP,TDAP,TD(3 - Td or Tdap) due on 06/07/2030 HEPATITIS C SCREENING Discontinued HIV SCREENING Discontinued ASSESSMENT/PLAN: 1. Annual physical exam - ICD9: V70.0, ICD10: Z00.00 (primary diagnosis) - Counseled on healthy diet and regular exercise - Calcium intake with supplements or by diet of 1000 mg/day for under 50, 1940-7965 mg/day for 50+ - Colorectal cancer screening recommended - agrees to Colonoscopy - Depression screening tool completed and reviewed with patient. Based on score and interview, patient is not at risk for depression and recommended no further intervention at this time. - Follow up for annual exam in one year - LIPID PANEL BASIC - COMP METABOLIC PANEL - CBC 2. Peanut allergy - ICD9: V15.01, ICD10: Z91.010 - EPINEPHRINE 0.3 MG/0.3 ML INJECTION, AUTO-INJECTOR 3. Tinea versicolor - ICD9: 111.0, ICD10: B36.0 - follow-up with dermatology as scheduled - SELENIUM SULFIDE 2.25 % SHAMPOO 4. Screening for colon cancer - ICD9: V76.51, ICD10: Z12.11 - COLONOSCOPY SCREENING 5. Screening for hyperlipidemia - ICD9: V77.91, ICD10: Z13.220 - LIPID PANEL BASIC 6. Vitamin D insufficiency - ICD9: 268.9, ICD10: E55.9 - VITAMIN D 25 HYDROXY Ramone Munoz APRN.EUSEBIA Prescription instructions reviewed with patient as applicable. Patient advised if symptoms do not improve or if symptoms worsen sooner, to contact their primary care physician. Potential red flag symptoms discussed with the patient. Reviewed appropriate action plan to take if red flag symptoms occur. Patient agreeable to treatment plan. documented in this encounter [facility] 01-08-2022 History of Presen t illness Narrative Jorge Kong MD Department of Orthopaedics Orth[facility] [address] [facility] [address] Dept: [phone] Dept January 08, [address] Shah for an opinion regarding Right wrist cyst. My final recommendations will be communicated back to the requesting physician by way of shared Medical record or letter to requesting physician via [place] mail. CHIEF COMPLAINT: New and Cyst of the Right Wrist HPI Patient here today for a cyst on her right wrist. She denies any pain. States it is ugly to look at. She reports she has one starting on the left wrist as well. She did fall last year when she was running with her dog and landed on her wrists. 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 ASSESSMENT: M67.431 Ganglion cyst of volar aspect of right wrist (primary encounter diagnosis) M67.40 Ganglion cyst M18.11 Primary osteoarthritis of first carpometacarpal joint of right hand PLAN: We had a lengthy discussion about the treatment options for a volar ganglion cyst of the wrist. The risks, benefits, alternatives and potential complications involving both operative and nonoperative treatment reviewed. At this time she does state that she is quite busy and having any kind of surgery is a little bit less favorable for her. However, if he bothers her more in the future she may consider it certainly. FOLLOW UP INSTRUCTIONS: As needed Ms. Nannette Heaton was advised as to contrast therapies and/or to take analgesics/anti-inflammatories as needed and all contraindications were reviewed. OBJECTIVE: Ms. Nannette Heaton is a pleasant 51 year old in no apparent distress. Gen:LMP 05/29/2021 nl development, non obese, no deformities ENT: Normocephalic, normal hearing, moist mucosa CV: Pulses:Radial= 2+ and symmetric, capillary refill < 2 secs, no peripheral edema/varicosities Skin: no rash, bruising or lesions. Good turgor. Psych: cooperative and appropriate, alert and oriented x 3, good mood and affect. Musculoskeletal: On the right volar wrist she has a what appears to be a ganglion cyst near the radial pulse and FCR tendon. Its mobile with transillumination. At the base of the left thumb curving there appears to be some soft tissue mass as well, likely a ganglion cyst but I suspect more so off of slightly arthritic CMC joint as opposed to volar cyst like the right side. IMAGING: Deferred today Supporting Subjective Information Below: Past Medical History: PAST MEDICAL HISTORY Diagnosis Date Eczema Exercise-induced asthma Fibromyalgia GERD (gastroesophageal reflux disease) History of COVID-19 01/2021 Mitral valve prolapse Retinal vascular abnormality 02/2020 Tinea versicolor Past Surgical History: PAST SURGICAL HISTORY Procedure Laterality Date PAST SURGICAL HISTORY OF Left 02/2020 retina surgery, cortisol buildup Family History: FAMILY HISTORY Problem Relation Age of Onset Thyroid Father Prostate Cancer Father other (Hypertenstion) Father other (Elevated Cholesterol) Father Diabetes Sister Diabetes Sister Diabetes Brother Diabetes Mother Depression Son Social History: Social History Tobacco Use Smoking status: Never Smoker Smokeless tobacco: Never Used Vaping Use Vaping Use: Never used Substance Use Topics Alcohol use: Yes Comment: rarely Drug use: No Medications: Current Outpatient Medications Medication Sig ProAir RespiClick 90 mcg/actuation breath activated (albuterol sulfate) Inhale 2 Puffs as instructed every 4 hours as needed. ZINC ACETATE ORAL Take by mouth. Cholecalciferol, Vitamin D3, 125 mcg (5,000 unit) cap Take 1 capsule by mouth once daily. vitamin b complex tab Take 1 tablet by mouth once daily. multivitamin tablet Take 1 tablet by mouth once daily. loratadine (CLARITIN) 10 mg tablet Take 10 mg by mouth as needed. (Patient not taking: Reported on 01/08/2022 ) EPINEPHrine (EPIPEN) 0.3 mg/0.3 mL auto-injector Inject 0.3 mL intramuscularly as needed. Selenium Sulfide 2.25 % sham Apply to affected area as needed (tinea versicolor). (Patient not taking: Reported on 01/08/2022 ) No current facility-administered medications for this visit. Allergies: Peanuts, Steroids [Corticosteroids (Glucocorticoids)], and Sulfa (Sulfonamide Antibiotics) ROS: General (negative for fatigue, malaise, weight loss/gain) HEENT (negative for headache, earache, recent vision changes, sinus pain, sore throat) Respiratory (no recent shortness of breath, hemoptysis) CV (negative for chest tightness, palpitations) Musculoskeletal (see HPI) Psych (no depression, anxiety) REFERRING PHYSICIAN: Ms. Nannette Heaton was referred to me for consultation by the following physician. This consultation note will be sent to the following physician by either mail or electronic medical record. Brisa Shah [address] [facility] [id number] Brisa Shah MD [address] [facility] [address] Jorge Kong MD documented in this encounter [facility] 12-14-2021 History of Presen t illness Narrative Chief Complaint Patient presents with: Derm Problem: Cyst on right wrist getting bigger HPI Nannette Heaton is a 51 year old female who presents here today for Above Complaints.. Patient complaining of lump on right wrist which started about a month ago. Has been tender when she bumps it. Increasing in size. Has not been treating with anything at home such as ice or NSAIDs. Past medical history, appointments, medications, allergies reviewed. Previous Medical History PAST MEDICAL HISTORY Diagnosis Date Eczema Exercise-induced asthma Fibromyalgia GERD (gastroesophageal reflux disease) History of COVID-19 01/2021 Mitral valve prolapse Retinal vascular abnormality 02/2020 Tinea versicolor Previous Surgical History PAST SURGICAL HISTORY Procedure Laterality Date PAST SURGICAL HISTORY OF Left 02/2020 retina surgery, cortisol buildup Family History FAMILY HISTORY Problem Relation Age of Onset Thyroid Father Prostate Cancer Father other (Hypertenstion) Father other (Elevated Cholesterol) Father Diabetes Sister Diabetes Sister Diabetes Brother Diabetes Mother Depression Son Patient Allergies ALLERGIES Allergen Reactions Peanuts Anaphylaxis Steroids [Corticost* Other: See Comments Avoid steroid after retina surgery 02/2020. Vision change / cortisol Sulfa (Sulfonamide * Rash Current Medications Current Outpatient Medications on File Prior to Visit Medication Sig loratadine (CLARITIN) 10 mg tablet Take 10 mg by mouth as needed. ProAir RespiClick 90 mcg/actuation breath activated (albuterol sulfate) Inhale 2 Puffs as instructed every 4 hours as needed. EPINEPHrine (EPIPEN) 0.3 mg/0.3 mL auto-injector Inject 0.3 mL intramuscularly as needed. ZINC ACETATE ORAL Take by mouth. Cholecalciferol, Vitamin D3, 125 mcg (5,000 unit) cap Take 1 capsule by mouth once daily. vitamin b complex tab Take 1 tablet by mouth once daily. multivitamin tablet Take 1 tablet by mouth once daily. Selenium Sulfide 2.25 % sham Apply to affected area as needed (tinea versicolor). No current facility-administered medications on file prior to visit. Social History Social History Tobacco Use Smoking status: Never Smoker Smokeless tobacco: Never Used Substance Use Topics Alcohol use: Yes Comment: rarely Drug use: No Review of Symptoms REVIEW OF SYSTEMS See HPI EXAM: BP 104/70 Pulse 73 Resp 16 Wt 66.1 kg (145 lb 12.8 oz) LMP 05/29/2021 (Exact Date) SpO2 99% BMI 23.18 kg/m General Appearance: Well appearing, alert, in no acute distress, well-hydrated, well nourished.. Skin: Skin color, texture, turgor normal, no suspicious rashes or lesions. Musculoskeletal: 1 x 0.5 cm ganglion cyst on right wrist. TTP. Non mobile. Similar sized cyst on left wrist which is non tender. . Health Maintenance List COVID-19 VACCINE(1) Never done SPIROMETRY Never done COLORECTAL CANCER SCREENING Never done SHINGRIX VACCINE(1 of 2) Never done PNEUMOCOCCAL(2 - PCV) due on 06/07/2021 INFLUENZA(Season Ended) due on 03/15/2022 MAMMOGRAM due on 04/14/2022 ANNUAL PCP TEAM CHRONIC DISEASE VISIT due on 06/12/2022 DEPRESSION SCREENING due on 06/12/2022 DIABETES SCREEN due on 06/12/2024 PAP TESTING due on 04/28/2026 HPV TESTING due on 04/28/2026 LIPID SCREEN due on 06/12/2026 DTAP,TDAP,TD(3 - Td or Tdap) due on 06/07/2030 HEPATITIS C SCREENING Discontinued HIV SCREENING Discontinued ASSESSMENT/PLAN: 1. Ganglion cyst - ICD9: 727.43, ICD10: M67.40 Discussed use of ice 2-3 times per day to help reduce pain and size. Refer to ortho hand for drainage vs excision. Red flags for re-assessment reviewed with patient in detail. - CONSULT TO ORTHOPAEDICS Brisa Shah MD documented in this encounter [facility] Ganglion cyst of volar aspect of right wrist- Primary Ganglion cyst Ganglion, unspecified Primary osteoarthritis of first carpometacarpal joint of right hand Primary localized osteoarthrosis, hand [facility] Diagnosis Encounter for screening mammogram for breast cancer [facility] Diagnosis Annual physical exam- Primary Routine general medical examination at a health care facility Peanut allergy Allergy to peanuts Tinea versicolor Pityriasis versicolor Screening for colon cancer Special screening for malignant neoplasms, colon Screening for hyperlipidemia Screening for lipoid disorders Vitamin D insufficiency Unspecified vitamin D deficiency [facility] Diagnosis Encounter for screening for malignant neoplasm of colon- Primary Special screening for malignant neoplasms, colon Screening for colon cancer Special screening for malignant neoplasms, colon [facility] Diagnosis Encounter for screening mammogram for breast cancer [facility] Diagnostic Procedure Only (Routine) - Pending Review Specialty Diagnoses / Procedures Referred By Dwayne graves Referred To Contact [facility] Diagnoses Encounter for screening mammogram for breast cancer Procedures WOLFGANG SCREENING SCREENING MAMMOGRAPHY BI 2-VIEW BREAST INC CAD Brisa Shah MD [address] [place] [address] [facility] [address] [place] [address] Referral ID Status Reason Start Date Expiration Date Visits Requested Visits Authorized [id number] Pending Review Auto-Generat ed Referral 05/23/2022 06/22/2023 1 1 [facility] for referral (narrative)* Outpatient Procedure (Routine) - Pending Review Specialty Diagnoses / Procedures Referred By Contac t Referred To Contact [facility] Diagnoses Screening for colon cancer Procedures COLONOSCOPY SCREENING COLONOSCOPY FLX DX W/COLLJ SPEC WHEN PFRamone Randolph APRN.ANCHOR OPERATOR [address] [place] [address] [facility] [place] [address] [place] [address] Referral ID Status Reason Start Date Expiration Date Visits Requested Visits Authorized [id number] Pending Review Auto-Generat ed Referral 08/21/2022 08/21/2023 1 1 [facility] for referral (narrative)* Outpatient Procedure (Routine) - Closed Specialty Diagnoses / Procedures Referred By Contbette t Referred To Contact [facility] Diagnoses Screening for colon cancer Procedures COLONOSCOPY SCREENING COLONOSCOPY FLX DX W/COLLJ SPEC WHEN PFRamone Randolph APRN.ANCHOR OPERATOR [address] [place] [address] [facility] [place] [address] [place] [address] Referral ID Status Reason Start Date Expiration Date V isits Requested Visits Authorized [id number] Closed Auto-Generate d Referral 08/21/2022 08/21/2023 1 1 [facility] for referral (narrative)* Diagnostic Procedure Only (Routine) - Pending Review Specialty Diagnoses / Procedures Referred By Dwayne t Referred To Contact [facility] Diagnoses Encounter for screening mammogram for breast cancer Procedures WOLFGANG SCREENING SCREENING MAMMOGRAPHY BI 2-VIEW BREAST INC CAD Brisa Shah MD [address] [place] [address] [facility] [address] [place] [address] Referral ID Status Reason Start Date Expiration Date Visits Requested Visits Authorized [id number] Pending Review Auto-Generat ed Referral 07/24/2023 08/22/2024 1 1 [facility] for visit Narrative* Outpatient Procedure (Routine) - Closed Specialty Diagnoses / Procedures Referred By Dwayne graves Referred To Contact [facility] Diagnoses Screening for colon cancer Procedures COLONOSCOPY SCREENING COLONOSCOPY FLX DX W/COLLJ SPEC WHEN PFRMD Ramone Munoz APRN.ANCHOR OPERATOR [address] [place] [address] [facility] [place] [address] [place] [address] Referral ID Status Reason Start Date Expiration Date V isits Requested Visits Authorized [id number] Closed Auto-Generate d Referral 08/21/2022 08/21/2023 1 1 [facility] Summary Purpose Family History No Family History Records FoundNo Family History Records FoundNo Family History Records FoundNo Family History Records FoundNo Family History Records FoundNo Family History Records FoundNo Family History Records FoundNo Family History Records Found Advance Directives No Advanced Directives Records FoundDocuments on File Type Date Recorded Patient Research Technician Expl anation Advance Directives and Living Will Reason for Referral Status Reason Specialty Diagnoses / Procedures Referred By Contact Referred To Contact Authorized Orthopedic Surgery Diagnoses Sprain of left knee, unspecified ligament, initial encounter John Parekh, ANCHOR OPERATOR [address] [place] [address] Salvador Peña MD [address] [place] [address] Specialty Diagnoses / Procedures Referred By Dwayne t Referred To Contact Orthopedics Diagnoses Ganglion cyst Procedures CONSULT TO ORTHOPAEDICS OFFICE/OUTPATIENT [facility] 60-74 MINUTES Brisa Shah MD [address] [place] [address] Referral ID Status Reason Start Date Expiration Date Visits Requested Visits Authorized [id number] Authorized PCP Requested Referral 12/14/2021 12/14/2022 1 1 Instructions * Patient Instructions* John Parekh, ANCHOR OPERATOR - 09/12/2018 7:35 PM EST Motrin/tylenol for pain relief. Knee Sprain: Care Instructions Your Care Instructions A knee sprain is one or more stretched, partly torn, or completely torn knee ligaments. Ligaments are bands of ropelike tissue that connect bone to bone and make the knee stable. The knee has four main ligaments. Knee sprains often happen because of a twisting or bending injury from sports such as skiing, basketball, soccer, or football. The knee turns one way while the lower or upper leg goes another way. A sprain also can happen when the knee is hit from the side or the front. If a knee ligament is slightly stretched, you will probably need only home treatment. You may need a splint or brace (immobilizer) for a partly torn ligament. A complete tear may need surgery. A minor knee sprain may take up to 6 weeks to heal, while a severe sprain may take months. Follow-up care is a west part of your treatment and safety. Be sure to make and go to all appointments, and call your doctor if you are having problems. It's also a good idea to know your test resultsand keep a list of the medicines you take. How can you care for yourself at home? Follow instructions about how much weight you can put on your leg and how to walk with crutches. Prop up your leg on a pillow when you ice it or anytime you sit or lie down for the next 3 days. Try to keep it above the level of your heart. This will help reduce swelling. Put ice or a cold pack on your knee for 10 to 20 minutes at a time. Try to do this every 1 to 2 hours for the next 3 days (when you are awake) or until the swelling goes down. Put a thin cloth between the ice and your skin. Do not get the splint wet. If you have an elastic bandage, make sure it is snug but not so tight that your leg is numb, tingles, or swells below the bandage. You can loosen the bandage if it is too tight. Your doctor may recommend a brace (immobilizer) to support your knee while it heals. Wear it as directed. Ask your doctor if you can take an iyst-azy-xlpcuzg pain medicine, such as acetaminophen (Tylenol),ibuprofen (Advil, Motrin), or naproxen (Aleve). Be safe with medicines. Read and follow all instructions on the label. When should you call for help? Call 911 anytime you think you may need emergency care. For example, call if: You have sudden chest pain and shortness of breath, or you cough up blood. Call your doctor now or seek immediate medical care if: You have increased or severe pain. You cannot move your toes or ankle. Your foot is cool or pale or changes color. You have tingling, weakness, or numbness in your foot or leg. Your splint or brace feels too tight. You are unable to straighten the knee, or the knee locks. You have signs of a blood clot in your leg, such as: ? Pain in your calf, back of the knee, thigh, or groin. ? Redness and swelling in your leg. Watch closely for changes in your health, and be sure to contact your doctor if: Your pain is not getting better or is getting worse. Where can you learn more? Log into your personal health record on [email or web address]://[employer]ice and enter N406 in the Education box to learn more about Knee Sprain: Care Instructions. Current as of: April 03, 2018 Content Version: 11.9 1265-3803 [employer]. Care instructions adapted under license by your healthcare professional. If you have questions about a medical condition or this instruction, always ask your healthcare professional. [employer] disclaims any warranty or liability for your use of this information. in this encounter History of Present Illness * John Parekh CNP - 09/12/2018 7:05 PM EST PATIENT NAME: Nannette Heaton [facility] [address] [facility] [address] : 1970 DATE OF VISIT: 09/12/2018 #: [id number] PROVIDER: John Parekh CNP Chief Complaint Patient presents with Knee Pain Left knee pain since last evening. Left knee swollen. Denies injury. SUBJECTIVE 48 y.o. female presents Knee Pain (Left knee pain since last evening. Left knee swollen. Denies injury.) Left knee pain since last evening noticed a sharp pain when changing into her pajamas. Then about 3:30 when getting up to urinate, she could not put any weight on her left knee. Just returned this weekend from [place] and hiked every day, at most for 3 hours. About 1.5 years ago fell over dog layingon the floor and injured same knee but no apparent fracture. Called to get an appointment with Dr. Peña and his office suggested that she come to urgent care for x-rays and get a referral. Knee Pain The incident occurred 12 to 24 hours ago. The incident occurred at home. There was no injury mechanism. The pain is present in the left knee. The pain is at a severity of 9/10. The pain has been constant since onset. Associated symptoms include an inability to bear weight. Pertinent negatives include no loss of motion, loss of sensation, numbness or tingling. She reports no foreign bodies present. She has tried ice and NSAIDs for the symptoms. The treatment provided mild relief. MEDICAL ISSUES Past Medical History: Diagnosis Date GERD (gastroesophageal reflux disease) Patient Active Problem List Diagnosis SNOMED CT(R) Primary localized osteoarthrosis of the knee LOCALIZED, PRIMARY OSTEOARTHRITIS Prepatellar bursitis, left knee PREPATELLAR BURSITIS OF LEFT KNEE SOCIAL HISTORY Social History Socioeconomic History Marital status: Spouse name: Not on file Number of children: Not on file Years of education: Not on file Highest education level: Not on file Social Needs Financial resource strain: Not on file Food insecurity - worry: Not on file Food insecurity - inability: Not on file Transportation needs - medical: Not on file Transportation needs - non-medical: Not on file Occupational History Not on file Tobacco Use Smoking status: Never Smoker Smokeless tobacco: Never Used Substance and Sexual Activity Alcohol use: No Drug use: Never Sexual activity: Not on file Other Topics Concern Not on file Social History Narrative Not on file FAMILY HISTORY History reviewed. No pertinent family history. REVIEW OF SYSTEMS Review of Systems Musculoskeletal: Positive for arthralgias (left knee). Neurological: Negative for tingling and numbness. MEDICATIONS PRIOR TO VISIT Current Outpatient Medications on File Prior to Visit Medication Sig Dispense Refill albuterol 90 mcg/actuation inhaler Inhale 2 puffs . EPINEPHrine (EPIPEN) 0.3 mg/0.3 mL AtIn Inject 0.3 mg into the shoulder, thigh, or buttocks . famotidine (PEPCID) 20 MG tablet Take 20 mg by mouth 2 (two) times a day . 2 No current facility-administered medications on file prior to visit. ALLERGIES/INTOLERANCES Allergies Allergen Reactions Peanut Anaphylaxis Sulfa (Sulfonamide Antibiotics) OBJECTIVE Vitals: 09/12/18 1850 BP: 112/77 Temp: 98.1 F (36.7 C) Pulse: 78 Resp: 18 SpO2: 98% Body mass index is 22.81 kg/m . 68 kg (150 lb) 5' 8 Patient's last menstrual period was 08/22/2018. The patient was not asked if she was . Physical Exam Constitutional: She is oriented to person, place, and time. She appears well- developed and well-nourished. Pulmonary/Chest: Effort normal. Musculoskeletal: Left knee: She exhibits swelling (very mild medial). She exhibits normal range of motion, no effusion, no ecchymosis, no deformity, no erythema, no LCL laxity, no bony tenderness and no MCL laxity. Tenderness found. Medial joint line tenderness noted. No lateral joint line, no MCL, no LCL and no patellar tendon tenderness noted. Legs: 37.5 cm right knee ., 38.5 left knee Pain medial knee, no crepitus or clicking Neurological: She is oriented to person, place, and time. Skin: Skin is warm and dry. Psychiatric: She has a normal mood and affect. PROCEDURE Procedures Results No results found for this or any previous visit (from the past 168 hour(s)). ASSESSMENT/PLAN (expressed as patient instructions): SNOMED CT(R) 1. Sprain of left knee, unspecified ligament, initial encounter SPRAIN OF LEFT KNEE Apply johny wrap Ambulatory referral to Orthopedic Surgery 2. Acute pain of left knee KNEE PAIN XR Knee Left 3 Views (Specify Views in Comments) No follow-ups on file. ADDITIONAL CLINICAL COMMENTS Declines need for crutches. Preliminary left knee x-ray read - no acute findings. ORDERS PLACED THIS VISIT Orders Placed This Encounter Procedures XR Knee Left 3 Views (Specify Views in Comments) Ambulatory referral to Orthopedic Surgery Apply johny wrap MEDICATION LIST AT END OF VISIT Current Outpatient Medications Medication Sig Dispense Refill albuterol 90 mcg/actuation inhaler Inhale 2 puffs . EPINEPHrine (EPIPEN) 0.3 mg/0.3 mL AtIn Inject 0.3 mg into the shoulder, thigh, or buttocks . famotidine (PEPCID) 20 MG tablet Take 20 mg by mouth 2 (two) times a day . 2 No current facility-administered medications for this visit. in this encounter Assessments Diagnosis Sprain of left knee, unspecified ligament, initial encounter- Primary Acute pain of left knee Medications Administered Section Inactive Administered Medications - up to 3 most recent administrations Medication Order MAR Action Action Date Dose Rate Site diphenhydrAMINE 12.5-50 mg injection (BENADRYL) 12.5-50 mg, INTRAVENOUS, DIRECTED, Starting on Olamide 09/20/22 at 1100, Until Olamide 09/20/22 at 1459, DOSING DIRECTED BY PHYSICIAN FOR PROCEDURAL SEDATION ONLY, Intraprocedure Given 09/20/2022 10:51 AM EST 50 mg fentaNYL 50 mcg/mL 25-100 mcg injection (SUBLIMAZE) 25-100 mcg, INTRAVENOUS, DIRECTED, Starting on Olamide 09/20/22 at 1100, Until Olamide 3 at 1459, DOSING DIRECTED BY PHYSICIAN FOR PROCEDURAL SEDATION ONLY, Intraprocedure Given 09/20/2022 10:56 AM EST 50 mcg Additional Source Comments INFORMATION SOURCE (unrecogn ized section and content) DATE CREATED AUTHOR AUTHOR'S ORGANIZ ATION 02/26/2018 [facility] DATE CREATED AUTHOR AUTHOR'S ORGANIZ ATION 04/03/2018 [facility] DATE CREATED AUTHOR AUTHOR'S ORGANIZ ATION 09/17/2018 [facility] DATE CREATED AUTHOR AUTHOR'S ORGANIZ ATION 12/24/2018 [facility] DATE CREATED AUTHOR AUTHOR[facility]S ORGANIZ ATION [facility] DATE CREATED AUTHOR AUTHOR'S ORGANIZ ATION 04/21/2021 [facility] DATE CREATED AUTHOR AUTHOR'S ORGANIZ ATION 07/29/2023 [facility] Reason for Visit (unrecogniz ed section and content) Reason Comments Derm Problem Cyst on right wrist getting bigger Reason Comments New Cyst Specialty Diagnoses / Procedures Referred By Contac t Referred To Contact Orthopedics Diagnoses Ganglion cyst Procedures CONSULT TO ORTHOPAEDICS OFFICE/OUTPATIENT NEW HIGH MDM 60-74 MINUTES Brisa Shah MD [address] [place] [address] Referral ID Status Reason Start Date Expiration Date V isits Requested Visits Authorized [id number] Closed PCP Requested Referral 12/14/2021 12/14/2022 1 1 Reason Comments Physical Reason Comments Orders Reason Comments Results Reason Onset Date Comments Refill Request 05/31/2023 <item> Privacy Markings (unrecogniz ed section and content) Section Author: Virgen Preston PROHIBITION ON REDISCLOSURE OF CONFIDENTIAL INFORMATION This notice accompanies a disclosure of information concerning a client made to you with the consent of such client. Source Comments (unrecognize d section and content) In the event this informatio n is protected by the Federal Confidentiality of Alcohol and Drug Abuse Patient Records regulations: The Federal rules restrict any use of the information to criminally investigate or prosecute any alcohol or drug abuse patient.[facility] the event this information is protected by the Federal Confidentiality of Alcohol and Drug Abuse Patient Records regulations: The Federal rules restrict any use of the information to criminally investigate or prosecute any alcohol or drug abuse patient.[facility] the event this information is protected by the Federal Confidentiality of Alcohol and Drug Abuse Patient Records regulations: The Federal rules restrict any use of the information to criminally investigate or prosecute any alcohol or drug abuse patient.[facility] the event this information is protected by the Federal Confidentiality of Alcohol and Drug Abuse Patient Records regulations: The Federal rules restrict any use of the information to criminally investigate or prosecute any alcohol or drug abuse patient.[facility] the event this information is protected by the Federal Confidentiality of Alcohol and Drug Abuse Patient Records regulations: The Federal rules restrict any use of the information to criminally investigate or prosecute any alcohol or drug abuse patient.[facility] the event this information is protected by the Federal Confidentiality of Alcohol and Drug Abuse Patient Records regulations: The Federal rules restrict any use of the information to criminally investigate or prosecute any alcohol or drug abuse patient.[facility] the event this information is protected by the Federal Confidentiality of Alcohol and Drug Abuse Patient Records regulations: The Federal rules restrict any use of the information to criminally investigate or prosecute any alcohol or drug abuse patient.[facility] the event this information is protected by the Federal Confidentiality of Alcohol and Drug Abuse Patient Records regulations: The Federal rules restrict any use of the information to criminally investigate or prosecute any alcohol or drug abuse patient.[facility] the event this information is protected by the Federal Confidentiality of Alcohol and Drug Abuse Patient Records regulations: The Federal rules restrict any use of the information to criminally investigate or prosecute any alcohol or drug abuse patient.[facility] Care Teams (unrecognized sec tion and content) Optical Glass Inspector Relationship Specialty Start Date End Date Brisa Shah MD [address] [place] [address] PCP - General Family Practice 01/31/18 Optical Glass Inspector Relationship Specialty Start Date End Date Brisa Shah MD [address] [place] [address] PCP - General Family Medicine 01/31/18 Optical Glass Inspector Relationship Specialty Start Date End Date Brisa Shah MD [address] [place] [address] PCP - General Family Medicine 01/31/18 Optical Glass Inspector Relationship Specialty Start Date End Date Brisa Shah MD [address] [place] [address] PCP - General Family Medicine 01/31/18 Optical Glass Inspector Relationship Specialty Start Date End Date Brisa Shah MD [address] [place] [address] PCP - General Family Medicine 01/31/18 Optical Glass Inspector Relationship Specialty Start Date End Date Brisa Shah MD [address] [place] [address] PCP - General Family Medicine 01/31/18 Optical Glass Inspector Relationship Specialty Start Date End Date Brisa Shah MD [address] [place] [address] PCP - General Family Medicine 01/31/18 Optical Glass Inspector Relationship Specialty Start Date End Date Brisa Shah MD [address] [place] [address] PCP - General Family Medicine 01/31/18 FOR RECORDS PERTAINING TO PATIENTS WHO ARE OR HAVE BEEN ENROLLED IN A CHEMICAL DEPENDENCY/SUBSTANCEABUSE PROGRAM, SOME INFORMATION MAY BE OMITTED. This clinical summary was aggregated from multiple sources. Caution should be exercised in using it in the provision of clinical care. This summary normalizes information from multiple sources, and as a consequence, information in this document may materially change the coding, format and clinical context of patient data. In addition, data may be omitted in some cases. CLINICAL DECISIONS SHOULD BE BASED ON THE PRIMARY CLINICAL RECORDS. [employer] [facility]. provides no warranty or guarantee of the accuracy or completeness of information in this document.
== END | disposition home or self-care (01) ==
LOC: OPBI 09:08
PROVIDERS: PCP Family Medicine; Referring Provider Obstetrics & Gynecology; Visit Provider Obstetrics & Gynecology
DX: Z12.31 Encounter for screening mammogram for malignant neoplasm of breast (principal)
CPT/HCPCS: 77063; 77067

== ENCOUNTER → 2025-01-11 | Outpatient (CLI) | payer BC, SELFPAY ==
--- NOTE | 2025-01-11 12:28 | BI_ITS ---
EXAM: SCRN MAMM (CAD)W/JORGE BILAT DATE: 01/11/2025 CLINICAL HISTORY: F, Age 54 y/o , SCREENING FOR MAMMOGRAM TECHNIQUE: SCRN MAMM (CAD)W/JORGE BILAT COMPARISON: Prior exam(s) dated 09/16/2023, 06/14/2022. FINDINGS: TISSUE DENSITY: There are scattered areas of fibroglandular density. Bilateral Breast Mammographic Findings: No significant masses, calcifications or other abnormalities are identified. BI/SCRN MAMM (CAD)W/JORGE BILAT IMPRESSION: There is no mammographic evidence of malignancy. OVERALL FINAL ASSESSMENT BI-RADS 1: NEGATIVE. RECOMMEND ANNUAL MAMMOGRAPHIC SCREENING. RECOMMENDATION: Routine annual follow-up in 1 Year A letter with findings and recommendations will be mailed to the patient. Reading Location: [id number]
--- OUTSIDE RECORDS SUMMARY | 2025-01-11 23:19 | XMS RPT_ITS | CCD ---
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 Celestine Shah Primary Care Provider [phone] Dr. Celestine Shah Referring Provider Dr. Neisha Avitia Attending Provider Brisa Shah MD Primary Care Provider Dr. Celestine Shah Primary Care Provider [phone] Dr. Celestine Shah Referring Provider [phone] Dr. Neisha Avitia Attending Provider Brisa Shah MD Primary Care Provider [employer].Edith LAWS Unavailable BRISA SHAH Primary Care Unavailab le SELF Referring Unavailable DARIEN MITTAL Attending Unavailable BRISA SHAH Primary Care Unavailab le BRSIA SHAH Referring UnavailBRISA Mejia Attending BRISA Bruno Primary Care Celestine Bruno Primary Care Celestine Markham Referring Unavailable Neisha Avitia Attending Neisha Bernal Attending Neisha Bernal Referring Celestine Olsen Primary Care Unavailable Alyssa LOZOYA, Dr. Sprague Primary Care Provider Dr. Neisha Avitia DO Attending Provider Dr. Neisha Avitia DO Referring Provider Dr. Celestine Shah MD Referring Provider Allergies Allergy Classification Reported Allergen(s) Allergy Type Date of Onset Reaction(s) Facility (16 sources) peanut; Translations: [PEANUTS] Propensity to adverse reactions to food (disorder) 05-06-20 14 Anaphylaxis [facility] Repository (20 sources) Sulfonamides (Antibiotic); Translations: [SULFA (SULFONAMIDE ANTIBIOTICS)] Propensity to adverse reactions to drug (disorder) 05-06-20 14 Rash [facility] Repository (6 sources) peanut allergenic extract; Translations: [PEANUT] Drug Allergy 05-06-20 14 Anaphylaxis [facility] (1 source) Codeine Drug Allergy Unknown [facility] (3 sources) Glucocorticoid; Translations: [CORTICOSTEROIDS (GLUCOCORTICOIDS)] Propensity to adverse reactions to drug 06-07-20 Other: See Comments [facility] Work Phone: (11 sources) Glucocorticoid preparation Propensity to adverse reactions to drug 06-07-20 Other: See Comments [facility] Work Phone: (1 source) peanut allergenic extract Drug Allergy 09-16-19 [facility] Repository Medications Current Medications Medication Drug Class(es) Dates Sig (Normalized) Sig (Original) [id number] 200 actuat albuterol 0.09 mg/actuat metered dose inhaler (18 sources) beta2-Adrenergic Agonist Start: 08-21-2022 End: 07-03-2024 take 2 puff(s) by inhalation every four hours as needed for wheezing albuterol HFA (VENTOLIN HFA) 90 mcg/actuation inhaler Inhale 2 Puffs as instructed every 4 hours as needed for wheezing/shortnes s of breath. 1 Each 1 07/03/2024 Active Start: 08-02-2021 End: 08-21-2022 take 2 puff(s) by inhalation every four hours as needed ProAir RespiClick 90 mcg/actuation breath activated (albuterol sulfate) Inhale 2 Puffs as instructed every 4 hours as needed. 1 Each 1 12/14/2021 08/21/2022 Discontinued Start: 01-31-2018 albuterol 90 m cg/actuation inhaler Inhale 2 puffs . 0 01/31/2018 Active Comment on above: Inhale 2 Puffs as in structed every 4 hours as needed. Inhale 2 Puffs as in structed every 4 hours as needed for wheezing/shortness of breath. albuterol 90 mcg/actuation inhaler (1 source) Start: 02-01-20 albuterol 90 mcg/actuation inhaler Inhale 2 puffs . 0 01/31/2018 Active B-Complex With Vitamin C (2 sources) Start: 04-26-20 take 1 capsule by mouth once daily B-Complex With Vitamin C Active 1 CAP PO DAILY April 25, 2021 11:00pm B-Complex With Vitamin C capsule (1 source) Start: 04-26-20 B-Complex With Vitamin C capsule Active 1 NMA PO DAILY April 26, 2021 12:00am calcium ascorbate 500 mg oral tablet (3 sources) Start: 04-26-20 take 1 tablet by mouth once daily Ascorbate Calcium (Vitamin C) 500 mg tablet Active 500 mg PO DAILY April 26, 2021 12:00am cholecalciferol 0.05 mg oral capsule (16 sources) Vitamin D Start: 04-26-20 take 1 capsule by mouth once daily Cholecalciferol (Vitamin D3) 50 mcg (2,000 unit) capsule Active 50 ug PO DAILY April 26, 2021 12:00am Start: 06-07-2020 take 1 capsule by [facility] once daily Cholecalciferol, Vitamin D3, 125 mcg (5,000 unit) cap Take 1 capsule by mouth once daily. 06/07/2020 Active Comment on above: Take 1 capsule by [facility] once daily. [id number] 0.3 ml EPINEPHrine 1 mg/ml auto-injector (17 sources) alpha-Adrenergic Agonist, beta-Adrenergic Agonist, Catecholamine Start: 08-02-2021 End: 07-03-2024 EPINEPHrine (EPIPEN) 0.3 mg/0.3 mL auto-injector Indications: Peanut allergy Inject 0.3 mL intramuscularly as needed. 2 Each 07/03/2024 Active Start: 01-31-2018 EPINEPHrine (E PIPEN) 0.3 mg/0.3 mL AtIn Inject 0.3 mg into the shoulder, thigh, or buttocks . 0 01/31/2018 Active Comment on above: Inject 0.3 mL intram uscularly as needed. famotidine 20 mg oral tablet (2 sources) Histamine-2 Receptor Antagonist Start: 018 take 1 tablet by mouth twice daily famotidine (PEPCID) 20 MG tablet Take 20 mg by mouth 2 (two) times a day . 2 06/27/2018 Active Lactobacillus Combination No.4 (Probiotic) 3 billion cell capsule (1 source) Start: 025 take 3 capsules by mouth once daily Lactobacillus Combination No.4 (Probiotic) 3 billion cell capsule Active 3000 NMA PO daily January 11, 2025 12:00am administer with a meal loratadine 10 mg oral tablet (13 sources) loratadine (CLARITIN) 10 mg tablet Take 10 mg by mouth as needed. Active Comment on above: Take 10 mg by mouth as needed. magnesium oxide 200 mg magnesium chew (2 sources) Start: 024 magnesium oxide 200 mg magnesium chew Take by mouth. 07/03/2024 Active multivitamin tablet (13 sources) Start: 020 take 1 tablet by mouth once daily multivitamin tablet Take 1 tablet by mouth once daily. 06/07/2020 Active Start: 06-07-2020 take 1 tablet by yusuf th once daily multivitamin tablet Take 1 tablet by mouth once daily. 0 06/07/2020 Active Comment on above: Take 1 tablet by yusuf th once daily. Multivitamin With Minerals (Hair,Skin And Nails) tablet (1 source) Start: 5 Multivitamin With Minerals (Hair,Skin And Nails) tablet Active 1 {tbl} PO daily January 11, 2025 12:00am multivitamin,tx-iron-m inerals (2 sources) Start: 0 take 1 tablet by mouth once daily multivitamin,tx-iron- minerals Active 1 TABLET PO DAILY March 02, 2020 11:00pm Multivitamin,Tx-Iron-M inerals (Complete Multivitamin) tablet (1 source) Start: 0 Multivitamin,Tx-Iron- Minerals (Complete Multivitamin) tablet Active 1 {tbl} PO DAILY March 03, 2020 12:00am polyethylene glycol 3350 068622 mg / potassium chloride 2980 mg / sodium bicarbonate 6720 mg / sodium chloride 5840 mg / sodium sulfate 18164 mg powder for oral solution (1 source) Osmotic Laxative Start: 3 End: 3 peg 3350-electrolytes (COLYTE) 240-22.72-6.72 -5.84 gram solution Take 4,000 mL by mouth one time only for 1 dose. 1 Each 0 08/21/2022 08/21/2022 Active Comment on above: Take 4,000 mL by yusuf th one time only for 1 dose. selenium sulfide 22.5 mg/ml medicated shampoo (14 sources) Start: 0 End: 3 Selenium Sulfide 2.25 % sham Indications: Tinea versicolor Apply to affected area as needed (tinea versicolor). 180 mL 2 08/21/2022 Active Comment on above: Apply to affected ar ea as needed (tinea versicolor). Vitamin B Complex (13 sources) Start: 0 take 1 tablet by mouth once daily vitamin b complex tab Take 1 tablet by mouth once daily. 06/07/2020 Active Start: 06-07-2020 take 1 tablet by yusuf th once daily vitamin b complex tab Take 1 tablet by mouth once daily. 0 06/07/2020 Active Comment on above: Take 1 tablet by yusuf th once daily. vitamin k2 0.04 mg oral tablet (2 sources) Start: 07-03-2024 vitamin K2 40 mcg tab Take by mouth. 07/03/2024 Active Zinc Acetate (13 sources) ZINC ACETATE ORA L Take by mouth. Active ZINC ACETATE ORA L Take by mouth. 0 Active Comment on above: Take by mouth. Completed/Discontinued Medications Medication Drug Class(es) Dates Sig (Normalized) Sig (Original) Zinc (3 sources) Start: 03-03-2020 End: 01-11-2025 take 1 tablet by mouth once daily Zinc 50 mg tablet Discontinued 50 mg PO DAILY March 03, 2020 12:00am January 11, 2025 1:23pm Start: 03-03-2020 take 50 mg by mouth once daily Zinc Active 50 MG PO DAILY March 02, 2020 11:00pm Problems Active Problems Problem Classification Problem Date Documented Date Episodic/Chronic Allergic reactions (6 sources) Allergy to peanut; Translations: [Allergy to peanuts] Onset: 07-03-2024 Episodic Asthma (15 sources) Exercise-induced asthma; Translations: [Exercise induced bronchospasm] Onset: 10-30-2017 10-30-2017 Chronic Cardiac dysrhythmias (1 source) Palpitations; Translations: [Palpitations] Onset: 02-17-2018 Episodic Inflammation; infection of eye (except that caused by tuberculosis or sexually transmitteddisease) (1 source) Hordeolum externum left lower eyelid; Translations: [Hordeolum externum of left lower eyelid] Onset: 12-04-2024 Episodic Mycoses (1 source) Pityriasis versicolor; Translations: [Pityriasis versicolor] Episodic Nutritional deficiencies (1 source) Vitamin D deficiency; Translations: [Vitamin D deficiency, unspecified] Chronic Open wounds of extremities (2 sources) Laceration of finger; Translations: [Open wound of finger(s), without mention of complication] 04-16-2021 Episodic Osteoarthritis (3 sources) Localized, primary osteoarthritis; Translations: [Osteoarthrosis of the carpometacarpal joint of the thumb] Onset: 10-19-2015 10-19-2015 Chronic Other connective tissue disease (2 sources) Ganglion cyst; Translations: [Ganglion, unspecified site] Episodic Other connective tissue disease (13 sources) Fibromyalgia; Translations: [Fibromyalgia] 01-31-2018 Episodic Other [...] in left knee] Onset: 09-12-2018 Episodic Other screening for suspected conditions (not mental disorders or infectious disease) (8 sources) Patient encounter status; Translations: [Encounter for screening mammogram for malignant neoplasm of breast] Onset: 01-07-2025 Episodic Retinal detachments; defects; vascular occlusion; and retinopathy (4 sources) Retinal vascular disorder; Translations: [Unspecified background retinopathy] Onset: 02-13-2020 07-03-2024 Chronic Sprains and strains (3 sources) Sprain of unspecified site of left knee, initial encounter; Translations: [Sprain of left knee, unspecified ligament, initial encounter] Onset: 09-12-2018 Episodic Unclassified (2 sources) LACERATION TO RIGHT INDEX FINGER 04-15-2021 Comment on above: LACERATION TO RIGHT INDEX FINGER Past or Other Problems Problem Classification Problem Date Documented Da te Episodic/Chronic Joint disorders and dislocations; trauma-related (4 sources) Tear of medial meniscus of knee; Translations: [Complex tear of medial meniscus, current injury, right knee, sequela] Onset: 07-03-2024 07-03-2024 Episodic Other connective tissue disease (1 source) Prepatellar bursitis, left knee; Translations: [Prepatellar bursitis, left knee] Onset: 10-19-2015 10-19-2015 Episodic Results Test Name Value Interpretation Reference Range Facility [facility] 12-04-2024 OV Office Visit (FAMPWS ) -- ANGEL HEATON ([id number]) 1970 F Date Time Provider Department 12/04/24 9:40 AM DARIEN MITTAL During your visit today, we recorded the following information about you: Temperature Pulse Blood pressure Weight 97.8 degrees 78/minute 122/78 68 kg Darien Mittal MD 12/04/2024 10:04 AM Signed Patient presents with: Eye Problem: Left eye feels stye coming on and wants to get ahead of it for the upcoming weekend HPI: Patient presents today for office visit for stye. Has an issues with a left eye. Gets them frequently Woke up this am and noted pain on it. 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 No vision issues. Last issue was April. MEDICATIONS: Current Outpatient Medications Medication Sig vitamin K2 40 mcg tab Take by mouth. magnesium oxide 200 mg magnesium chew Take by mouth. EPINEPHrine (EPIPEN) 0.3 mg/0.3 mL auto-injector Inject 0.3 mL intramuscularly as needed. albuterol HFA (VENTOLIN HFA) 90 mcg/actuation inhaler Inhale 2 Puffs as instructed every 4 hours as needed for wheezing/shortness of breath. Selenium Sulfide 2.25 % sham Apply to [...] No current facility-administered medications for this visit. ALLERGIES: ALLERGIES Allergen Reactions Peanuts Anaphylaxis Steroids [Corticost* Other: See Comments Avoid steroid after retina surgery 02/2020. Vision change 2/2 cortisol Sulfa (Sulfonamide * Rash PAST MEDICAL HISTORY Diagnosis Date Arthritis Complex tear of medial meniscus of right knee, unspecified whether old or current tear, sequela remote tear Eczema Exercise-induced asthma (HCC) Fibromyalgia GERD (gastroesophageal reflux disease) History of COVID-19 01/2021 Mitral valve prolapse Retinal vascular abnormality 02/2020 Retinal specialist in [place] PAST SURGICAL HISTORY Procedure Laterality Date COLONOSCOPY 09/20/2022 repeat in 10 years EYE SURGERY HX PAST SURGICAL HISTORY OF Left 02/2020 retina surgery, cortisol buildup SKIN BIOPSY HX FAMILY HISTORY Problem Relation Age of Onset Thyroid Father Prostate Cancer Father other (Hypertenstion) Father other (Elevated Cholesterol) Father Diabetes Sister Diabetes Sister Diabetes Brother Diabetes Mother Depression Son Social History Tobacco Use Smoking status: Never Smokeless tobacco: Never Vaping Use Vaping status: Never Used Substance Use Topics Alcohol use: Not Currently Drug use: No Reviewed current medications, allergies, past medical history, surgical history, family history and social history today. REVIEW OF SYSTEMS No fever. No drainage. All other reviewed and negative other than HPI. VITALS: BP 122/78 Pulse 78 Temp 36.6 ?C (97.8 ?F) Wt 68 kg (150 lb) LMP 05/29/2021 (Exact Date) SpO2 99% BMI 24.21 kg/m? Last 4 Encounter Wt Readings: Date: Wt: 12/04/2024 68 kg (150 lb) 07/03/2024 69.6 kg (153 lb 6.4 oz) 08/21/2022 67.2 kg (148 lb 3.2 oz) 12/14/2021 66.1 kg (145 lb 12.8 oz) PHYSICAL EXAMINATION: General appearance: Well appearing, alert, in no acute distress, well-hydrated, well nourished. Skin: Skin color, texture, turgor normal, no suspicious rashes or lesions Eyes: Anicteric sclera. Pupils are equally round and reactive to light. Extraocular movements are intact. , has small developing stye on right lower lid. No cellulitis. ASSESSMENT/PLAN: 1. Hordeolum externum of left lower eyelid - ICD9: 373.11, ICD10: H00.015 - Discussed risks and benefits of new medication with the patient. Advised them to call if any side effects or questions. Red flags for re-assessment reviewed with patient in detail. Call if symptoms worsen at all or if not better in one week Reviewed diagnosis and treatment options in detail. Questions were answered. Patient expressed understanding of treatment plan. - CIPROFLOXACIN 0.3 % EYE DROPS MD Darien Bynum MD Referring Provider: SELF [200] Allergies As of Date: 12/04/2024 Noted Allergy Reaction PEANUTS 05/06/2014 10 - Anaphylaxis STEROIDS (CORTICOSTEROIDS (GLUCOC*06/07/2020 14 - Other: See Comments Comments: Avoid steroid after retina surgery 02/2020. Vision change 2/2 cortisol SULFA (SULFONAMIDE ANTIBIOTICS) 05/06/2014 2 - Rash Date Reviewed: 12/04/2024 Reviewed by: Marcella Funes LPN - Fully Assessed Reason for Visit: Eye Problem [43] Cmt: Left eye feels stye coming on and wants to get ahead of it for the upcoming weekend Primary Visit (more content not included)... Normal [facility] CNPNon 07-06-2024 CNPN Telephone (FAMPWS) -- ANGEL HEATON ([id number]) 1970 F Date Time Provider Department 07/06/24 BRISA SHAH FAMWS During your visit today, we recorded the following information about you: Juany Fuller MA 07/06/2024 1:54 PM Signed ----- Message from Brisa Shah MD sent at 07/06/2024 10:33 AM EST ----- Normal labs aside from high cholesterol. Patient still considered low risk for heart attack and stroke despite her cholesterol increasing over the last year. Recommend low cholesterol diet and exercise. Recheck in 1 year. The 10-year ASCVD risk score (Aleena DK, et al., 2019) is: 1.1% Values used to calculate the score: Age: 54 years Sex: Female Is Non- : No Diabetic: No Tobacco smoker: No Systolic Blood Pressure: 102 mmHg Is BP treated: No HDL Cholesterol: 99 mg/dL Total Cholesterol: 291 mg/dL Juany Fuller MA 07/06/2024 1:55 PM Signed Letter mailed to pt home of results. Shar Arvizu MA, YOUNG 07/09/2024 10:35 AM Signed Patient returned call and given provider's message below with verbalized understanding. Pt agreeable and states she will work on diet to help reduce cholesterol numbers and start running more. Pt reports she has a fear of developing DM due to hx of DM in her family. Pt asking if pcp can order cholesterol labs to be done in 3 mths instead of 1 year? Please advise patient. Darien Mittal MD 07/09/2024 11:13 AM Signed We can but again her risk based on her cholesterol breakdown is extremely low at 1.1. That is more important than specific individual numbers-we do not talk aout medications until someone is literally 9-10 times her amount. Darien Mittal MD 07/09/2024 11:13 AM Signed Addended by: DARIEN MITTAL on: 07/09/2024 11:13 AM Modules accepted: Kita Israel RN 07/09/2024 7:36 PM Addendum Pt was asking about repeating her HgbA1c in 3 months. Pt is terrified about getting diabetes. She states her parents/grandparents as well as all of her siblings are diabetics. Pt doesn't care if she has to pay out of pocket to repeat her HgbA1c in 3 months. She is doing everything she can to prevent the diabetes but she was very concerned about her 5.6 reading and wants to make sure it goes down. Order pended.Dagnosis code family hx of diabetes mellitus. Is provider okay with that code or prefer a different code? No need to contact pt back unless provider does not want to repeat the HgbA1c. Kita Pollack RN 07/09/2024 7:37 PM Signed Addended by: KITA POLLACK on: 07/09/2024 07:37 PM Modules accepted: Darien Guidry MD 07/10/2024 9:55 AM Signed I ordered it but let her know her previous A1c was not even close to being a diabetic which is over 6.5 Darien Mittal MD 07/10/2024 9:56 AM Signed Addended by: DARIEN MITTAL on: 07/10/2024 09:56 AM Modules accepted: Joya Holt MA 07/10/2024 3:40 PM Signed Patient was notified lab orders Joya Logan MA Allergies As of Date: 07/06/2024 Noted Allergy Reaction PEANUTS 05/06/2014 10 - Anaphylaxis STEROIDS (CORTICOSTEROIDS (GLUCOC*06/07/2020 14 - Other: See Comments Comments: Avoid steroid after retina surgery 02/2020. Vision change 2/2 cortisol SULFA (SULFONAMIDE ANTIBIOTICS) 05/06/2014 2 - Rash Date Reviewed: 07/03/2024 Reviewed by: Brisa Shah MD - Fully Assessed Reason for Visit: Results [95] Primary Visit Diagnosis:Mixed hyperlipidemia [E78.2] Other Visit Diagnosis:Family history of diabetes mellitus [Z83.3] Order(s):LIPID PANEL BASIC [SQLIPB] Order #: [id number] FUTURE HEMOGLOBIN A1C [AKMOH0Q] Order #: [id number] FUTURE Prescriptions as of 07/10/2024 - vitamin K2 40 mcg tab Take by mouth. - magnesium oxide 200 mg magnesium chew Take by mouth. - EPINEPHrine (EPIPEN) 0.3 mg/0.3 mL auto-injector Inject 0.3 mL intramuscularly as needed. - albuterol HFA (VENTOLIN HFA) 90 mcg/actuation inhaler Inhale 2 Puffs as instructed every 4 hours as needed for wheezing/shortness of breath. - Selenium Sulfide 2.25 % sham Apply [...] once daily. Problem List As Of Date 07/06/2024 Noted Resolved Exercise-induced asthma [J45.990] 10/30/2017 Fibromyalgia [M79.7] Retinal vascular abnormality [H35.00] 02/2020 Complex tear of medial meniscus of right knee, * Letter Text Encounter Status:Closed by JUANY FULLER on 07/06/24 Normal [facility] 25(OH)D3 Linda 2023 25-hydroxyvitamin D3 [Mass/Vol] 37.1 ng/mL Normal 31.0-80.0 [facility] Comment on above: Order Comment: Speci men Type: BLOOD SPECIMENOrdering Facility: [facility] Address: [address] [place], [place] [address] [address] Result Comment: Clas sification of 25 OH Vitamin D status: Deficiency/Insufficiency: < or = 30 ng/ml. Sufficiency/Optimal Levels: 31-80 ng/mL Toxicity: > 100 ng/mL. Test performed by chemiluminescent immunoassay. Performed By: #### 1 989-3 ####[facility] [id number] [place] [address] [place] CBC W Auto Differential pane l (Bld)on 07-03-2024 Basophils (Bld) [#/Vol] 0.03 10*3/uL Normal <0.11 [facility] Comment on above: Order Comment: Speci men Type: BLOOD SPECIMENOrdering Facility: [facility] Address: [address] [place] [address] Performed By: #### 5 7021-8 ####[facility] [id number] [place] [address] [place] Basophils/100 WBC (Bld) 0.6 % Normal [facility] Comment on above: Order Comment: Speci men Type: BLOOD SPECIMENOrdering Facility: [facility] Address: [address] [place] [address] Performed By: #### 5 7021-8 ####[facility] [id number] [place] [address] [place] Differential cell count method Nom (Bld) Auto Normal [facility] Comment on above: Order Comment: Speci men Type: BLOOD SPECIMENOrdering Facility: [facility] Address: [address] [place] [address] Performed By: #### 5 7021-8 ####[facility] [id number] [place] [address] [place] Eosinophils (Bld) [#/Vol] 0.04 10*3/uL Normal <0.46 [facility] Comment on above: Order Comment: Speci men Type: BLOOD SPECIMENOrdering Facility: [facility] Address: [address] [place] [address] Performed By: #### 5 7021-8 ####[facility] [id number] [place] [address] [place] Eosinophils/100 WBC (Bld) 0.7 % Normal [facility] Comment on above: Order Comment: Speci men Type: BLOOD SPECIMENOrdering Facility: [facility] Address: [address] [place] [address] Performed By: #### 5 7021-8 ####[facility] [id number] [place] [address] [place] Erythrocyte distribution width (RBC) [Ratio] 15.9 % High 11.5-15.0 [facility] Comment on above: Order Comment: Speci men Type: BLOOD SPECIMENOrdering Facility: [facility] Address: [address] [place] [address] Performed By: #### 5 7021-8 ####[facility] [id number] [place] [address] [place] Hematocrit (Bld) [Volume fraction] 38.7 % Normal 36.0-46.0 [facility] Comment on above: Order Comment: Speci men Type: BLOOD SPECIMENOrdering Facility: [facility] Address: [address] [place] [address] Performed By: #### 5 7021-8 ####[facility] [id number] [place] [address] [place] Hemoglobin (Bld) [Mass/Vol] 13.0 g/dL Normal 11.5-15.5 [facility] Comment on above: Order Comment: Speci men Type: BLOOD SPECIMENOrdering Facility: [facility] Address: [address] [place] [address] Performed By: #### 5 7021-8 ####[facility] [id number] [place] [address] [place] Immature granulocytes (Bld) [#/Vol] 10*3/uL Normal <0.10 [facility] Comment on above: Order Comment: Speci men Type: BLOOD SPECIMENOrdering Facility: [facility] Address: [address] [place] [address] Performed By: #### 5 7021-8 ####[facility] [id number] [place] [address] [place] Immature granulocytes/100 WBC (Bld) 0.2 % Normal [facility] Comment on above: Order Comment: Speci men Type: BLOOD SPECIMENOrdering Facility: [facility] [facility] Address: [address] [place] [address] Performed By: #### 5 7021-8 ####[facility] LABCLIA [id number] [place] [address] [place] Lymphocytes (Bld) [#/Vol] 2.18 10*3/uL Normal 1.00-4.00 [facility] Comment on above: Order Comment: Speci men Type: BLOOD SPECIMENOrdering Facility: [facility] Address: [address] [place] [address] Performed By: #### 5 7021-8 ####[facility] LABCLIA [id number] [place] [address] [place] Lymphocytes/100 WBC (Bld) 40.2 % Normal [facility] Comment on above: Order Comment: Speci men Type: BLOOD SPECIMENOrdering Facility: [facility] Address: [address] [place] [address] Performed By: #### 5 7021-8 ####[facility] LABCLIA [id number] [place] [address] [place] MCH (RBC) [Entitic mass] 29.3 pg Normal 26.0-34.0 [facility] Comment on above: Order Comment: Speci men Type: BLOOD SPECIMENOrdering Facility: [facility] Address: [address] [place] [address] Performed By: #### 5 7021-8 ####[facility] LABCLIA [id number] [place] [address] [place] MCHC (RBC) [Mass/Vol] 33.6 g/dL Normal 30.5-36.0 [facility] Comment on above: Order Comment: Speci men Type: BLOOD SPECIMENOrdering Facility: [facility] Address: [address] [place] [address] Performed By: #### 5 7021-8 ####[facility] LABCLIA [id number] [place] [address] [place] MCV (RBC) [Entitic vol] 87.2 fL Normal 80.0-100.0 [facility] Comment on above: Order Comment: Speci men Type: BLOOD SPECIMENOrdering Facility: [facility] Address: [address] [place] [address] Performed By: #### 5 7021-8 ####[facility]CLIA [id number] [place] [address] [place] Monocytes (Bld) [#/Vol] 0.47 10*3/uL Normal <0.87 [facility] Comment on above: Order Comment: Speci men Type: BLOOD SPECIMENOrdering Facility: [facility] Address: [address] [place] [address] Performed By: #### 5 7021-8 ####[facility] LABCLIA [id number] [place] [address] [place] Monocytes/100 WBC (Bld) 8.7 % Normal [facility] Comment on above: Order Comment: Speci men Type: BLOOD SPECIMENOrdering Facility: [facility] Address: [address] [place] [address] Performed By: #### 5 7021-8 ####[facility]CL[facility] [id number] [place] [address] [place] Neutrophils (Bld) [#/Vol] 2.69 10*3/uL Normal 1.45-7.50 [facility] Comment on above: Order Comment: Speci men Type: BLOOD SPECIMENOrdering Facility: [facility] Address: [address] [place] [address] Performed By: #### 5 7021-8 ####[facility]CL[facility] [id number] [place] [address] [place] Neutrophils/100 WBC (Bld) 49.6 % Normal [facility] Comment on above: Order Comment: Speci men Type: BLOOD SPECIMENOrdering Facility: [facility] Address: [address] [place] [address] Performed By: #### 5 7021-8 ####[facility]CL[facility] [id number] [place] [address] [place] Nucleated RBC (Bld) [#/Vol] 10*3/uL Normal <0.01 [facility] Comment on above: Order Comment: Speci men Type: BLOOD SPECIMENOrdering Facility: [facility] Address: [address] [place] [address] Performed By: #### 5 7021-8 ####[facility] LABIA [id number] [place] [address] [place] Nucleated RBC/100 WBC (Bld) [Ratio] 0.0 /100 WBC Normal [facility] Comment on above: Order Comment: Speci men Type: BLOOD SPECIMENOrdering Facility: [facility] Address: [address] [place] [address] Performed By: #### 5 7021-8 ####[facility]CL[facility] [id number] [place] [address] [place] Platelet mean volume (Bld) [Entitic vol] 12.4 fL Normal 9.0-12.7 [facility] Comment on above: Order Comment: Speci men Type: BLOOD SPECIMENOrdering Facility: [facility] Address: [address] [place] [address] Performed By: #### 5 7021-8 ####[facility]CL[facility] [id number] [place] [address] [place] Platelets (Bld) [#/Vol] 239 10*3/uL Normal 150-400 [facility] Comment on above: Order Comment: Speci men Type: BLOOD SPECIMENOrdering Facility: [facility] Address: [address] [place] [address] Performed By: #### 5 7021-8 ####[facility] LABIA [id number] [place] [address] [place] RBC (Bld) [#/Vol] 4.44 10*6/uL Normal 3.90-5.20 [facility] Comment on above: Order Comment: Speci men Type: BLOOD SPECIMENOrdering Facility: [facility] Address: [address] [place] [address] Performed By: #### 5 7021-8 ####[facility] LABIA [id number] [place] [address] [place] WBC (Bld) [#/Vol] 5.42 10*3/uL Normal 3.70-11.00 [facility] Comment on above: Order Comment: Speci men Type: BLOOD SPECIMENOrdering Facility: [facility] Address: [address] [place] [address] Performed By: #### 5 7021-8 ####[facility] [id number] [place] [address] [place] CNOVon 07-03-2024 CNOV Office Visit (FAMPWS ) -- ANGEL HEATON ([id number]) 1970 F Date Time Provider Department 07/03/24 9:00 AM BURSBRISA LEHMAN During your visit today, we recorded the following information about you: Pulse Respiration Blood pressure Weight 72/minute 12/minute 102/62 69.6 kg Height 1.676 m Brisa Shah MD 07/03/2024 10:03 AM Signed Chief Complaint Patient presents with: Yearly Exam: last seen 2 years ago HARMEET Heaton is a 54 year old female who presents here today for annual physical. Patient has been in good health without recent hospitalizations, ER visits. No concerns today. [facility] abnormality on a yearly basis. No change in regimen at last OV in September. No concerns today. Also notes that she went to [facility] 1-2 months ago for some right knee swelling after trip to [facility]. Has remote right medial meniscus tear with mild arthritis. Discussed surgery, but is not interested now due to no pain or swelling on a regular basis. Patient frustrated because she would like to lose 7 lbs and is having difficulty with this. Working on diet and exercise. Due for routine labs. 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 States she had pap smear this year which was reportedly normal. Mammogram completed in September which was normal. Refusing vaccinations today. Past medical history, appointments, medications, allergies reviewed. 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 Vision change 2/2 cortisol Sulfa (Sulfonamide * Rash Current Medications Current Outpatient Medications on File Prior to Visit Medication Sig vitamin K2 40 mcg tab Take by mouth. magnesium oxide 200 mg magnesium chew Take by mouth. 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. Normal [facility] Comprehensive metabolic 2000 panelon 07-03-2024 Albumin [Mass/Vol] 4.7 g/dL Normal 3.9-4.9 [facility] Comment on above: Order Comment: Speci men Type: BLOOD SPECIMENOrdering Facility: [facility] Address: [address] [place], [place] [id number] Performed By: #### 2 4331-1, 3015-3, ####[facility] LABCLIA [id number] [address] [address] [place] ALP [Catalytic activity/Vol] 57 U/L Normal 34-123 [facility] Comment on above: Order Comment: Speci men Type: BLOOD SPECIMENOrdering Facility: [facility] Address: [address] [place], [place] [phone] Performed By: #### 2 4331-1, 3, ####[facility] LABIA [id number] [place] [address] [place] ALT [Catalytic activity/Vol] 23 U/L Normal 7-38 [facility] Comment on above: Order Comment: Speci men Type: BLOOD SPECIMENOrdering Facility: [facility] Address: [address] [place] [address] Performed By: #### 2 4331-1, 3, ####[facility] LABIA [id number] [place] [address] [place] Anion gap [Moles/Vol] 11 mmol/L Normal 8-15 [facility] Comment on above: Order Comment: Speci men Type: BLOOD SPECIMENOrdering Facility: [facility] Address: [address] [place], [place] [phone] Performed By: #### 2 4331-1, 3015-3, 19621-7 ####[facility] LABIA [id number] [place] [id number] [place] AST [Catalytic activity/Vol] 24 U/L Normal 13-35 [facility] Comment on above: Order Comment: Speci men Type: BLOOD SPECIMENOrdering Facility: [facility] Address: [address] [place], [place] [phone] Performed By: #### 2 4331-1, 3015-3, ####[facility] LABCLIA [id number] [address] [address] [place] Bilirubin [Mass/Vol] 0.6 mg/dL Normal 0.2-1.3 [facility] Comment on above: Order Comment: Speci men Type: BLOOD SPECIMENOrdering Facility: [facility] Address: [address] [place] [address] Performed By: #### 2 4331-1, 3015-3, ####[facility] LABCLIA [id number] [place] [address] [place] Calcium [Mass/Vol] 9.6 mg/dL Normal 8.5-10.2 [facility] Comment on above: Order Comment: Speci men Type: BLOOD SPECIMENOrdering Facility: [facility] Address: [address] [place] [address] Performed By: #### 2 4331-1, 3, ####[facility] LABCLIA [id number] [place] [address] [place] Chloride [Moles/Vol] 105 mmol/L Normal 98-107 [facility] Comment on above: Order Comment: Speci men Type: BLOOD SPECIMENOrdering Facility: [facility] Address: [address] [place] [address] Performed By: #### 2 4331-1, 3, ####[facility] LABCLIA [id number] [address] [address] [place] CO2 [Moles/Vol] 24 mmol/L Normal 22-30 [facility] Comment on above: Order Comment: Speci men Type: BLOOD SPECIMENOrdering Facility: [facility] Address: [address] [place], [place] [phone] Performed By: #### 2 4331-1, 3015-3, ####[facility] LABCLIA [id number] [place] [id number] [place] Creatinine [Mass/Vol] 0.66 mg/dL Normal 0.58-0.96 [facility] Comment on above: Order Comment: Autumn benson Type: BLOOD SPECIMENOrdering Facility: [facility] Address: [address] [place] [address] Performed By: #### 2 4331-1, 6-3, 26214-9 ####[facility] LABIA [id number] [place] [address] [place] Creatinine and Glomerular filtration rate.predicted panel (S/P/Bld) 104 mL/min/1.73m??? Normal >=60 [facility] Comment on above: Order Comment: Autumn benson Type: BLOOD SPECIMENOrdering Facility: [facility] Address: [address] [place] [address] Result Comment: Peyton mated Glomerular Filtration Rate (eGFR) is calculated using the 2020 CKD-EPI creatinine equation. This equation utilizes serum creatinine, sex, and age as parameters. The creatinine assay has traceable calibration to isotope dilution-mass spectrometry. Refer to KDIGO guidelines for clinical interpretation. In patients with unstable renal function, e.g. those with acute kidney injury, the eGFR may not accurately reflect actual GFR. Performed By: #### 2 4331-1, 6-3, 99001-7 ####[facility] LABIA [id number] [place] [id number] [place] Glucose [Mass/Vol] 99 mg/dL Normal 74-99 [facility] Comment on above: Order Comment: Autumn kelley Type: BLOOD SPECIMENOrdering Facility: [facility] Address: [address] [place] [address] Result Comment: The [place] Diabetes Association (ADA) provides guidance for cutoff values for fasting glucose and random glucose. The ADA defines fasting as no caloric intake for at least 8 hours. Fasting plasma glucose results between 100 to 125 mg/dL indicate increased risk for diabetes (prediabetes). Fasting plasma glucose results greater than or equal to 126 mg/dL meet the criteria for diagnosis of diabetes. In the absence of unequivocal hyperglycemia, results should be confirmed by repeat testing. In a patient with classic symptoms of hyperglycemia or hyperglycemic crisis, random plasma glucose results greater than or equal to 200 mg/dL meet the criteria for diagnosis of diabetes. Reference: Standards of Medical Care in Diabetes 2016, [place] Diabetes Association. Diabetes Care. 2016.39(Suppl 1). Performed By: #### 2 4331-1, 3, ####[facility] LABCLIA [id number] [place] [address] [place] Potassium [Moles/Vol] 4.0 mmol/L Normal 3.7-5.1 [facility] Comment on above: Order Comment: Autumn benson Type: BLOOD SPECIMENOrdering Facility: [facility] Address: [address] [place] [address] Performed By: #### 2 4331-1, 3015-09, ####[facility] LABCLIA [id number] [place] [address] [place] Protein [Mass/Vol] 7.5 g/dL Normal 6.3-8.0 [facility] Comment on above: Order Comment: Autumn benson Type: BLOOD SPECIMENOrdering Facility: [facility] Address: [address] [place] [address] Performed By: #### 2 4331-1, 3015-09, ####[facility] LABCLIA [id number] [place] [address] [place] Sodium [Moles/Vol] 140 mmol/L Normal 136-144 [facility] Comment on above: Order Comment: Trinhi kelley Type: BLOOD SPECIMENOrdering Facility: [facility] Address: [address] [place] [address] Performed By: #### 2 4331-1, 3, ####[facility] LABCLIA [id number] [address] [address] [place] Urea nitrogen [Mass/Vol] 22 mg/dL High 7-21 [facility] Comment on above: Order Comment: Autumn benson Type: BLOOD SPECIMENOrdering Facility: [facility] Address: [address] [place] [address] Performed By: #### 2 4331-1, 3016-3, 18222-0 ####[facility] LABCLIA [id number] [place] [address] [place] HbA1c (Bld)on 07-03-2024 Average glucose Estimated from glycated hemoglobin (Bld) [Mass/Vol] 114 mg/dL Normal [facility] Comment on above: Order Comment: Autumn benson Type: BLOOD SPECIMENOrdering Facility: [facility] Address: [address] [place] [address] Result Comment: eAG: (Estimated average glucose) is a calculated value from HgbA1c and is territory account representative of the average blood glucose level in the last 2-3 month period. Performed By: #### 5 5454-3 ####[facility] LABCLIA [id number] [place] [address] [place] HbA1c (Bld) [Mass fraction] 5.6 % Normal 4.3-5.6 [facility] Comment on above: Order Comment: Autumn benson Type: BLOOD SPECIMENOrdering Facility: [facility] Address: [address] [place] [address] Result Comment: Amer [place] Diabetes Association guidelines indicate that patients with HgbA1c in the range 5.7-6.4% are at increased risk for development of diabetes, and intervention by lifestyle modification may be beneficial. HgbA1c greater or equal to 6.5% is considered diagnostic of diabetes. Performed By: #### 5 5454-3 ####[facility] LABCLIA [id number] [place] [id number] [place] Lipid 1996 panelon 4 Cholesterol [Mass/Vol] 291 mg/dL High <200 [facility] Comment on above: Order Comment: Autumn benson Type: BLOOD SPECIMENOrdering Facility: [facility] Address: [address] [place] [id number] Result Comment: <200 mg/dL, Desirable 200-239 mg/dL, Borderline high >239 mg/dL, High Performed By: #### 2 4331-1, 3016-3, 31447-1 ####[facility] LABCLIA [id number] [address] [address] [place] Cholesterol in HDL [Mass/Vol] 99 mg/dL Normal >39 [facility] Comment on above: Order Comment: Speci men Type: BLOOD SPECIMENOrdering Facility: [facility] Address: [address] [place] [address] Result Comment: 40-5 9 mg/dL, Acceptable >59 mg/dL, High: Negative risk factor for coronary heart disease <40 mg/dL, Low: Positive risk factor for coronary heart disease Performed By: #### 2 4331-1, 3015-3, ####[facility] LABCLIA [id number] [address] [address] [place] Cholesterol in LDL [Mass/Vol] 182 mg/dL High <100 [facility] Comment on above: Order Comment: Trinhi men Type: BLOOD SPECIMENOrdering Facility: [facility] Address: [address] [place] [address] Result Comment: <100 mg/dL, Optimal 100-129 mg/dL, Near optimal/above optimal 130-159 mg/dL, Borderline high 160-189 mg/dL, High >189 mg/dL, Very high Secondary prevention optimal LDL Cholesterol levels are recommended to be < 70 mg/dL Performed By: #### 2 4331-1, 3015-3, 92883-3 ####[facility] LABCLIA [id number] [place] [id number] [place] Cholesterol in LDL/Cholesterol in HDL [Mass ratio] 1.84 {ratio} Normal <2.54 [facility] Comment on above: Order Comment: Speci men Type: BLOOD SPECIMENOrdering Facility: [facility] Address: [address] [place] [address] Result Comment: Skip quintero: 1. National Cholesterol Education Program ATP III Guideline At-A-Glance Quick Desk Reference: National Heart, Lung, and Blood [place]. National Institutes of Health. 2001: NIH Publication No. 01-3305. 2. An International Atherosclerosis Society position paper: global recommendations for the management of dyslipidemia: executive summary, Atherosclerosis. 2014: 232(2):410-413. Performed By: #### 2 4331-1, 3015-3, 41089-5 ####[facility] LABCLIA [id number] [place] [address] [place] Cholesterol in VLDL [Mass/Vol] 10 mg/dL Normal <30 [facility] Comment on above: Order Comment: Autumn benson Type: BLOOD SPECIMENOrdering Facility: [facility] Address: [address] [place] [address] Performed By: #### 2 4331-1, 3015-3, ####[facility] LABCLIA [id number] [place] [address] [place] Cholesterol non HDL [Mass/Vol] 192 mg/dL High <130 [facility] Comment on above: Order Comment: Autumn benson Type: BLOOD SPECIMENOrdering Facility: [facility] Address: [address] [place] [address] Result Comment: <130 mg/dL, Optimal 130-159 mg/dL, Near optimal/above optimal 160-189 mg/dL, Borderline high 190-219 mg/dL, High >219 mg/dL, Very high Secondary prevention optimal non HDL Cholesterol levels are recommended to be <100 mg/dL Performed By: #### 2 4331-1, 3015-3, 09104-4 ####[facility] LABCLIA [id number] [place] [address] [place] Cholesterol.total /Cholesterol in HDL [Mass ratio] 2.94 {ratio} Normal <5.10 [facility] Comment on above: Order Comment: Autumn men Type: BLOOD SPECIMENOrdering Facility: [facility] Address: [address] [place], [place] [id number] Performed By: #### 2 4331-1, 3015-3, ####[facility] LABCLIA [id number] [address] [address] [place] FASTING TIME 12 hrs Normal [facility] Comment on above: Order Comment: Speci men Type: BLOOD SPECIMENOrdering Facility: [facility] Address: [address] [place] [address] Performed By: #### 2 4331-1, 3015-3, ####[facility] LABCLIA [id number] [place] [address] [place] Triglyceride [Mass/Vol] 50 mg/dL Normal <150 [facility] Comment on above: Order Comment: Speci men Type: BLOOD SPECIMENOrdering Facility: [facility] Address: [address] [place] [address] Result Comment: <150 mg/dL, Normal 150-199 mg/dL, Borderline high 200-499 mg/dL, High >499 mg/dL, Very high Performed By: #### 2 4331-1, 3015-3, ####[facility] LABCLIA [id number] [place] [id number] [place] TSH SerPl-aCncon 07-03-2024 TSH Qn 1.790 m[IU]/L Normal 0.270-4.200 [facility] Comment on above: Order Comment: Speci men Type: BLOOD SPECIMENOrdering Facility: [facility] Address: [address] [place], [place] [address] Performed By: #### 2 4331-1, 3015-3, ####[facility] LABCLIA [id number] [address] [address] [place] COLONOSCOPY SCREENINGon 03-0 [facility] Provider Note - ED v3on 10-0 Provider Note - ED v3 Provider Note: Chart Review: HISTORY OF PRESENTING ILLNESS ANGEL is a 50 year old Female and was seen by me at 15-Apr-2021 21:30 for a chief complaint of lacerations (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 Tetanus booster received last year per patient.)(1). Triage Information: Most recent Vital Sign Value Date Temp (F): 96.9 04-15-2021 21:33 Temp (C): 36.1 04-15-2021 21:33 Heart Rate (beats/min): 76 04-15-2021 21:33 Respirations (breaths/min): 18 04-15-2021 21:33 SpO2 (%): 100 04-15-2021 21:33 BP Systolic (mm Hg): 129 04-15-2021 21:33 BP Diastolic (mm Hg): 85 04-15-2021 21:33 PAST MEDICAL HISTORY ALLERGIES/INTOLERANCES: Allergy Allergen: Peanuts Type: Food Reaction: Anaphylaxis Allergen: codeine Type: Drug Reaction: Unknown HEALTH HISTORY: No documented data. OUTPATIENT MEDICATIONS: Home Medications Review Status for Reconciliation: N/A Med Status: N/A No documented data. SIGNIFICANT EVENTS: No documented data. MDM MDM/ED COURSE: PMH: Reviewed PSH: Reviewed Social History: Reviewed. Allergies reviewed. HPI: This is a right-handed 50 year old female who presents to the ED today with complaints of laceration of the left index finger. She states around 12:00 noon today she was trying to cut a bag off of the cake. The knife slipped and she has a laceration of the left index finger. States tetanus was last updated in May. Was unable to control bleeding at home by report. PHYSICAL EXAM: GENERAL: Vitals noted, no distress. Alert and oriented x 3. Non-toxic. CARDIAC: Regular rate, rhythm. RESPIRATORY: No respiratory distress. MUSCULOSKELETAL & SKIN: Warm, dry, and intact except for a 1 cm linear laceration, gaping 2-3mm, palmar aspect left 2nd middle phalanx. No active bleeding. Full finger ROM noted. Distal cap refill WNL. No rash/lesions. No peripheral edema. NEURO: No focal neurologic deficits, acting appropriately. ED COURSE: This patient was seen and examined by myself independently. I am able to Steri-Strip the patient's wound with satisfactory closure. Patient is a nonstick dressing applied and a bulky gauze dressing applied. She is advised to keep her finger straight tonight. Referred to PCP for follow-up care as needed. Discharged home in stable condition with computer instructions given. DIAGNOSTIC IMPRESSION: #1 left second finger laceration with Steri-Strip closure DISPOSITION Diagnosis/Annotation: ED Dx Name:Finger laceration Code:S61.219A Disposition: discharged Type: home CONSULT CRITICAL CARE TIME Is this a critically ill patient: no Electronic Signatures: Makayla Read (LOCOMOTIVE ELECTRICIAN-CARD READER) (Signed 15-Apr-2021 22:09) Authored: HPI, PMH, MDM/ED Course, Clinical Impression, Attestation, Chart Review, Scores Last Updated: 15-Apr-2021 22:09 by Makayla Read (LOCOMOTIVE ELECTRICIAN-CARD READER) References: 1. Data Referenced From Triage - ED 15-Apr-2021 21:33 Normal [facility] Risk Screen - Adult Emergenc yon 04-16-2021 Risk Screen - Adult Emergency Preferred Language: Preferred Language: Preferred Language for Discussing Health Care (patient/designee)Mexican Advanced Directives: Advance Directive/DNRno Family Violence Adult: Abuse Screen: Are you or have you been threatened or abused physically, emotionally, or sexually by anyoneno Learning Assessment (Patient): Learning Assessment (Patient): Patient is Able to be Assessed for Learningyes Factors Influencing Readiness to Learnpain Factors that Impact Ability to Learnnone Devices/Methods Used to Communicatenone Learning Preferenceswritten material Cultural Considerationsnone Developmental Considerationsnone Tenriism Considerationsnone Other Learnersnone Learning Assessment (Other Learner): Learning Assessment (Other Learner): Other learner availableno Pressure Injury/TB/Substance: Pressure Injury: Pressure Injury Present on Admissionno Do you have a coughno Smoking Statusnever smoker Alcohol Usedenies Drug Usedenies Drug 2 Usedenies Admission Risk Screen: Significant IndicatorsComplete CAGE: CAGE: Is this an injured patient at a Trauma Center ([facility]/[place]/[facility]/[place]): no Electronic Signatures: Marleny Hill (SUPV) (Signed 15-Apr-2021 23:19) Authored: Preferred Language, Advanced Directives, Family Violence Adult, Learning Assessment (Patient), Learning Assessment (Other Learner), Pressure Injury/TB/Substance, Pressure Injury, CAGE Last Updated: 15-Apr-2021 23:19 by Marleny Hill (JENIFFER) [facility] Triage - EDon 04-15-2021 Triage - ED Quick Triage: Are You no Have You Given In The Last 6 Weeksno Are You Currently Breastfeedingno Chart Review: ARRIVAL INFORMATION Mode of Arrival: private vehicle CHIEF COMPLAINT ANGEL HEATON is a Female patient with a chief complaint of lacerations (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 Tetanus booster received last year per patient.). Triage Date/Time: 15-Apr-2021 21:33 MILTON: 4 Pain Rating (0-10): 4 = Moderate Pain location: L 2nd digit Vital Signs: Temperature: 96.9F ( 36.1C) Blood Pressure: 129/85 Mean: Heart Rate: 76 Respiratory Rate: 18 Pulse Oximetry: 100% Height: 5 feet 7.00 inches. 170.1 CM Weight: 135.5 pounds. Calculated 61.5 kg. (stated) Calculated BMI (kg/m2): 21.255 Calculated BSA (m2) 1.70 [place] Indian Coma Scale: Best Eye Response: (E4) spontaneous Best Motor Response: (M6) obeys commands Best Verbal Response: (V5) oriented Big Indian Score: 15 Cough lasting greater than 3 weeks: no Patient has homicidal thoughts: no Risk Screens Suicide Risk Screen In the Past Month: Have you wished you were or wished you could go to sleep and not wake up no In the Past Month: Have you had any actual thoughts of killing yourself no In Your Lifetime: Have you ever done anything, started to do anything, or prepared to do anything to end your life no Acosta Fall Scale Screening Has the patient fallen before (or is the patient in the ED as a result of a fall) has not had a fall Does the patient have an impaired gait does not have impaired gait Is the patient cognitively impaired not cognitively impaired Interventions: Acosta Fall Interventions: LOW INTERVENTIONS: *patient oriented to surroundings and call system, * patient/family falls education completed and documented, *patients fall status communicated during bedside handoff, *whiteboard updated, *mode of toileting discussed with patient, *bed in low position with brakes locked, *call light in reach, * non-skid footwear TRAVEL HISTORY Travel History Coronavirus Screening: no exposure or symptoms Travel Exposure History: NO travel to International locations in the past 30 days PAIN Pain Scale Used: RAKEL Pain Rating (0-10): 4 = Moderate Past Medical History: Past Medical History Reviewedyes Electronic Signatures: Earnest Foley (RN) (Signed 15-Apr-2021 21:36) Entered: Risk Screens, Pain, Travel History, Chart Review, Scores, Past Medical History Authored: Quick Triage, Risk Screens, Pain, Travel History, Chart Review, Scores, Past Medical History Last Updated: 15-Apr-2021 21:36 by Earnest Foley (YOUNG) [facility] IGP W/hpv Rfx [id number] 12-24 Diagnosis: See Ref Lab Report [facility] Comment on above: Order Comment: LMP: 12/05/18 Performed By: #### 1 [id number] #### [place] [address] [facility] 12-16-2018 [facility] 260 Date of Procedure: 12/16/2018 Pathologist: LILA ARCHIBALD Date Reported: 12/23/2018 Date Received: 12/17/2018 Submitting Physician: LY FIELDS MD FINAL CYTOLOGICAL INTERPRETATION A. THINPREP PAP Cervical / Endocervical Reflex - [facility] only: Specimen adequacy: SATISFACTORY FOR EVALUATION. Quality Indicator: Endocervical/transformatio n zone component is present. General Categorization: NEGATIVE FOR INTRAEPITHELIAL LESION OR MALIGNANCY. Electronically Signed Out By [facility], Cytology//MXG By the signature on this report, the individual or group listed as making the Final Interpretation/Diagnosis certifies that they have reviewed this case. Educational Note: Cervical cytology is a screening procedure primarily for squamous cancers and precursors and has associated false-negative and false-positive results as evidenced by published data. Your patient?s test should be interpreted in this context, together with patient?s history and clinical findings. Regular sampling and follow-up of unexplained clinical signs and symptoms are recommended to minimize false negative results. Clinical History Date of Last Menstrual Period: 12/05/2018 Other Clinical Conditions: Reflex HPV Testing Ordered: [facility] and Above Z12.4, Z11.51 Source of Specimen A: THINPREP PAP Cervical / Endocervical Reflex - [facility] only Normal [facility] XR KNEE LEFT 3 VIEWS (SPECIF Y VIEWS IN COMMENTS)on 09-12-2018 XR KNEE LEFT 3 VIEWS (SPECIFY VIEWS IN COMMENTS) LEFT KNEE X-RAY, 3 VIEWS HISTORY: Pain. COMPARISON: None. FINDINGS: There is no acute fracture or dislocation. There is mild narrowing of the medial compartment and patellofemoral joint. There is a small joint effusion. IMPRESSION: Small joint effusion, no acute bony abnormality. Mild osteoarthritis. Workstation ID: [id number] Dictated by: JUDITH NEWBERRY on SatSep 12, 2018 8:22:25 PM EST Transcribed by: JUDITH NEWBERRY on SatSep 12, 2018 8:22:25 PM EST Finalized by: UJDITH NEWBERRY on SatSep 12, 2018 8:22:25 PM EST Normal [facility] Comment on above: Order Comment: Colby phan for exam?:left knee pain medial aspect Injury/Trauma or Illness?:Injury/Trauma How long have you had these symptoms (acute/chronic)?:Acute History of cancer?:na Surgeries, chemotherapy, or radiation?:na Type of Exam?:Initial Mechanism of injury?:denies injury XR Knee Left 3 Views (Specif y Views in Comments)on 09-12-2018 Small joint effusion , no acute bony abnormality. Mild osteoarthritis. Workstation ID: [id number] [facility] LEFT KNEE X-RAY, 3 V IEWS HISTORY: Pain. COMPARISON: None. FINDINGS: There is no acute fracture or dislocation. There is mild narrowing of the medial compartment and patellofemoral joint. There is a small joint effusion. [facility] Interface, Rad In Fu ji Speechq - 09/12/2018 8:25 PM EST LEFT KNEE X-RAY, 3 VIEWS HISTORY: Pain. COMPARISON: None. FINDINGS: There is no acute fracture or dislocation. There is mild narrowing of the medial compartment and patellofemoral joint. There is a small joint effusion. IMPRESSION: Small joint effusion, no acute bony abnormality. Mild osteoarthritis. Workstation ID: [id number] [facility] Mamm Screen w/CAD if perf ormed bilaton 10--2018 DASHA Mamm Screen w/CAD if performed bilat Exam Date/Time: 03/21/2018 08:29 EDT Reason for Exam: SCREENING;Screening Report STUDY: DASHA Mamm Screen w/CAD if performed bilat; 03/21/2018 8:29 am ACCESSION NUMBER(S): [id number] ORDERING CLINICIAN: Ly Fields INDICATION: Screening. COMPARISON: 04/18/2016, 11/24/2014 FINDINGS: The breast tissue is heterogeneously dense, which may obscure small masses. No suspicious masses or calcifications are identified. IMPRESSION: No mammographic evidence of malignancy. BI-RADS CATEGORY: Category: 2 - Benign Finding. Recommendation: Normal Interval Follow-up, Over Age 40. for future screening, tomosynthesis is recommended in view of dense breast parenchyma. Recall Interval: 12 Months. Breast Density: Heterogeneous. For any future breast imaging appointments, please call [phone]). FINAL REPORT Dictated: 03/21/2018 11:30 am Kaleb Carlos MD Signed (Electronic Signature): 05/12/2018 9:45 am Signed by: Kaleb Carlos MD Technologist: ROCIO Assessment: BI-RADS Category 2-Benign finding Recommendation: Normal interval follow-up Normal [facility] 48 HR HOLTER MONITORon 02-17 48 HR HOLTER MONITOR IMPRESSIONS AND FINDINGS:Scanned [id number] basic underlying rhythm is sinus with an average rate of 73 BPM, a minimum rate of 45 BPM and a maximum rate of 161 BPM. B radycardia was seen in25% of the scan.There were 11 isolated premature atrial complexes and one atrial couplet.There were ten isolated premature ventricular complexes.The diary was not returned with the monitor. Hookup Date: 20180217 Hookup Time: 800804 Recording Duration: 897188 S Minimum Heart Rate: 45 BPM Minimum Heart Rate Date/Time: 20180217 662405 Maximum Heart Rate: 161 BPM Maximum Heart Rate Date/Time: 20180219 217717 Average Heart Rate: 73 BPM Longest RR: 1.472 S Longest RR DATE/TIME: 20180218 065395 QRS complexes: 200033 Ventricular Ectopics: 10 Ventricular Isolated Beats: 10 Ventricular Bigeminal Cycles: 0 Ventricular Couplets: 0 Ventricular Runs: 0 Ventricular Beats in Runs: 0 Supraventricular Ectopics: 13 Supraventricular Isolated Beats: 11 Supraventricular Couplets: 1 Supraventricular Runs: 0 Supraventricular Beats in Runs: 0 Maximum S-T Levels Channel 1: -12.800 mm Maximum S-T Levels Channel 1 Date/Time: 20180217900 Minimum S-T Levels Channel 1: -12.800 mm Minimum S-T Levels Channel 1 Date/Time: 20180217 355259 Maximum S-T Levels Channel 2: -12.800 mm Minimum S-T Levels Channel 2: -12.800 mm Minimum S-T Levels Channel 2 Date/Time: 20180217 Overreading Physician: OJ HODGE MD See Holter MUSE for ECG strips. Normal [facility] Pathology ([facility])on 11-18-2017 Pathology ([facility]) FINAL GYNECOLOGIC CY TOLOGY [id number] ADEQUACYSatisfactory for Evaluation. Endocervical cells/transformation zone componentpresent.GENERAL CATEGORIZATIONNegative for Intraepithelial Lesion or MalignancyCOMMENTThis smear is reviewed by a pathologist due to cells questioned by thecytotechnologist.Sample has been treated with glacial acetic acid for excessive blood, debris,inflammation and/or lubricant.CLINICAL HISTORYComment: No LMP provided.SPECIMEN(A) SCREENING CERVICAL/ENDOCERVICAL THIN PREP VIALPerformed at [facility], [address] [place], [place] [address]Screened by: PHI WAITE Software Maintenance Engineer Signed Out by: KHANG WEISS M.D. Reported: 11/25/2017 Normal [facility] Comment on above: Performed By: #### G YN ####[facility] [address] [place] [address] Vital Signs Date Time Vital Sign Value Performing Clinician Warren henson 01-11-2025 13:12-0400 Body height 170.[address] Celestine Shah MD Work Phone: [facility] 01-11-2025 13:12-0400 Body mass index (BMI) [Ratio] 23.2 kg/m2 Dr. Celestine Shah MD Work Phone: [facility] 01-11-2025 13:12-0400 Body weight 67.[address] Celestine Shah MD Work Phone: [facility] 01-11-2025 13:12-0400 Diastolic blood pressure 81 mm[Hg] Dr. Celestine Shah MD Work Phone: [facility] 01-11-2025 13:12-0400 Systolic blood pressure 116 mm[Hg] Dr. Celestine Shah MD Work Phone: [facility] 07-03-2024 08:47-0500 Body height 167.6 cm Brisa Shah MD Work Phone: [facility] 07-03-2024 08:47-0500 Body mass index (BMI) [Ratio] 24.76 kg/m2 Brisa Shah MD Work Phone: [facility] 07-03-2024 08:47-0500 Body weight 69.58 kg Brisa Shah MD Work Phone: [facility] 07-03-2024 08:47-0500 Diastolic blood pressure 62 mm[Hg] Brisa Shah MD Work Phone: [facility] 07-03-2024 08:47-0500 Heart rate 72 /min Brisa Shah MD Work Phone: [facility] 07-03-2024 08:47-0500 Respiratory rate 12 /min Brisa Shah MD Work Phone: [facility] 07-03-2024 08:47-0500 SaO2% (BldA) [Mass fraction] 100 % Brisa Shah MD Work Phone: [facility] 07-03-2024 08:47-0500 Systolic blood pressure 102 mm[Hg] Brisa Shah MD Work Phone: [facility] 09-16-2023 09:37-0500 Body height 170.[address] Celestine Shah Work Phone: [facility] 09-16-2023 09:36-0500 Body mass index (BMI) [Ratio] 24.6 kg/m2 Dr. Ceelstine Shah Work Phone: [facility] 09-16-2023 09:36-0500 Body weight 71.[address] Celestine Shah Work Phone: [facility] 09-16-2023 09:36-0500 Diastolic blood pressure 81 mm[Hg] Dr. Celestine Shah Work Phone: [facility] 09-16-2023 09:36-0500 Systolic blood pressure 130 mm[Hg] Dr. Celestine Shah Work Phone: [facility] 09-20-2022 11:40-0500 Diastolic blood pressure 65 mm[Hg] Jett Braxton MD Work Phone: [facility] 09-20-2022 11:40-0500 Heart rate 51 /min Jett Braxton MD Work Phone: [facility] 09-20-2022 11:40-0500 SaO2% (BldA) [Mass fraction] 100 % Jett Braxton MD Work Phone: [facility] 09-20-2022 11:40-0500 Systolic blood pressure 107 mm[Hg] Jett Braxton MD Work Phone: [facility] 09-20-2022 11:20-0500 Respiratory rate 16 /min Jett Braxton MD Work Phone: [facility] 09-20-2022 10:37-0500 Body temperature 98.49 [degF] Jett Braxton MD Work Phone: [facility] 08-21-2022 07:58-0500 Body height 168 cm Edith Podlogar LOCOMOTIVE ELECTRICIAN.CARD READER Work Phone: [facility] 08-21-2022 07:58-0500 Body weight 67.22 kg Edith Wrightlogantelmo LOCOMOTIVE ELECTRICIAN.CARD READER Work Phone: [facility] 08-21-2022 07:58-0500 Diastolic blood pressure 82 mm[Hg] Edith Podlogar LOCOMOTIVE ELECTRICIAN.CARD READER Work Phone: [facility] 08-21-2022 07:58-0500 Heart rate 82 /min Edith Podlogar LOCOMOTIVE ELECTRICIAN.CARD READER Work Phone: [facility] 08-21-2022 07:58-0500 Respiratory rate 16 /min Edith Podlogar LOCOMOTIVE ELECTRICIAN.CARD READER Work Phone: [facility] 08-21-2022 07:58-0500 SaO2% (BldA) [Mass fraction] 98 % Edith Podlogar LOCOMOTIVE ELECTRICIAN.CARD READER Work Phone: [facility] 08-21-2022 07:58-0500 Systolic blood pressure 112 mm[Hg] Edith Podlogar LOCOMOTIVE ELECTRICIAN.CARD READER Work Phone: [facility] 06-14-2022 08:39-0500 Body height 170.[address] Celestine Shah Work Phone: [facility] Work Phone: 06-14-2022 08:34-0500 Body mass index (BMI) [Ratio] 23 kg/m2 Dr. Celestine Shah Work Phone: [facility] Work Phone: 06-14-2022 08:34-0500 Body weight 66.[address] Celestine Shah Work Phone: [facility] Work Phone: 06-14-2022 08:34-0500 Diastolic blood pressure 74 mm[Hg] Dr. Celestine Shah Work Phone: [facility] Work Phone: 06-14-2022 08:34-0500 Systolic blood pressure 107 mm[Hg] Dr. Celestine Shah Work Phone: [facility] Work Phone: 12-14-2021 16:26-0400 Body weight 66.13 kg Brisa Shah MD Work Phone: [facility] 12-14-2021 16:26-0400 Diastolic blood pressure 70 mm[Hg] Brisa Shah MD Work Phone: [facility] 12-14-2021 16:26-0400 Heart rate 73 /min Brisa Shah MD Work Phone: [facility] 12-14-2021 16:26-0400 Respiratory rate 16 /min Brisa Shah MD Work Phone: [facility] 12-14-2021 16:26-0400 SaO2% (BldA) [Mass fraction] 99 % Brisa Shah MD Work Phone: [facility] 12-14-2021 16:26-0400 Systolic blood pressure 104 mm[Hg] Brisa Shah MD Work Phone: [facility] 04-15-2021 23:33-0400 Body height 170.1 cm Brisa Shah Other Phone: [facility] 04-15-2021 23:33-0400 Body temperature 96.98 [degF] Brisa Shah Other Phone: [facility] 04-15-2021 23:33-0400 Body weight 61.5 kg Brisa Shah Other Phone: [facility] 04-15-2021 23:33-0400 Diastolic blood pressure 85 mm[Hg] Brisa Shah Other Phone: [facility] 04-15-2021 23:33-0400 Heart rate 76 /min Brisa Shah Other Phone: [facility] 04-15-2021 23:33-0400 Respiratory rate 18 /min Brisa Shah Other Phone: [facility] 04-15-2021 23:33-0400 SaO2% (BldA) [Mass fraction] 100 % Brisa Shah Other Phone: [facility] 04-15-2021 23:33-0400 Systolic blood pressure 129 mm[Hg] Brisa Shah Other Phone: [facility] 09-12-2018 18:50-0500 BMI (Body Mass Index) 22.81 kg/m2 John Saab [facility] 09-12-2018 18:50-0500 Body Temperature 98.1 [degF] John Saab [facility] 09-12-2018 18:50-0500 BP Diastolic 77 mm[Hg] [facility] 18:50-0500 BP Systolic 112 mm[Hg] John Saab [facility] 09-12-2018 18:50-0500 Height 172.7 cm John Saab [facility] 09-12-2018 18:50-0500 Pulse (Heart Rate) 78 /min John Saab [facility] 09-12-2018 18:50-0500 Pulse Oximetry 98 % [facility] 09-12-2018 18:50-0500 Respiratory Rate 18 /min [facility]-12-2018 18:50-0500 Weight 68.04 [facility] Encounter Date Encounter Type Care Provider Facility Start: 01-11-2025 End: 01-11-[address] Neisha Avitia DO [facility] Start: 01-11-2025 End: 01-11-2025 ambulatory Celestine Shah Facility:[facility] Start: 01-11-2025 End: 01-11-[address] Neisha Avitia DO [facility] Work Phone: Start: 12-04-2024 End: 12-04-2024 ambulatory BRISA SHAH Facility:[facility] Start: 07-06-2024 End: 07-06-2024 Telephone encounter Brisa Shah MD Work Phone: [facility] Comment on above: Results Start: 07-03-2024 End: 07-03-2024 ambulatory BRISA SHAH Facility:[facility] Start: 07-03-2024 End: 07-03-2024 Patient encounter procedure Brisa Shah MD Work Phone: [facility] Comment on above: Annual physical exam (Primary Dx); Exercise-induced asthma; Peanut allergy; Retinal vascular abnormality; Complex tear of medial meniscus of right knee, unspecified whether old or current tear, sequela Start: 07-03-2024 End: 07-03-2024 ambulatory BRISA SHAH Facility:[facility] Start: 07-01-2024 End: 07-01-2024 ambulatory Brisa Shah MD Work Phone: [facility] Start: 07-01-2024 End: 07-01-2024 Patient encounter procedure Brisa hSah MD Work Phone: [facility] Start: 07-01-2024 End: 07-01-2024 Patient encounter status Brisa Shah MD Work Phone: [facility] Start: 09-16-2023 End: 09-16-[address] Celestine Shah Work Phone: [facility] Work Phone: Start: 09-16-2023 End: 09-16-[address] Celestine Shah Work Phone: [facility] Work Phone: Start: 07-24-2023 ambulatory Brisa Shah MD Work Phone: [facility] Start: 07-18-2023 Telephone encounter Celestine Shah MD Work Phone: [facility] Comment on above: Appointment Start: 05-31-2023 Refill Brisa Shah MD Work Phone: Radiology Comment on above: Refill Request Start: 09-20-2022 End: 09-20-2022 Subsequent hospital visit by physician Jett Braxton MD Work Phone: Ambulatory Surgery Comment on above: Screening for colon cancer [Z12.11] Start: 08-22-2022 Telephone encounter Edith garcía APRN.CNP Work Phone: [facility] Comment on above: Results Start: 08-21-2022 Telephone encounter Celestine Shah MD Work Phone: [facility] Comment on above: Orders Start: 08-21-2022 End: 08-21-2022 Patient encounter procedure Edith Wrightsb KHALILN.CARD READER Work Phone: [facility] Comment on above: Annual physical exam (Primary Dx); Peanut allergy; Tinea versicolor; Screening for colon cancer; Screening for hyperlipidemia; Vitamin D insufficiency Start: 06-14-2022 End: 06-14-[address] Celestine Shah Work Phone: [facility] Work Phone: Start: 06-14-2022 End: 06-14-[address] Celestine Shah Work Phone: [facility] Start: 05-23-2022 ambulatory Brisa Shah MD Work Phone: Internal Medicine [facility] Start: 01-08-2022 End: 01-08-2022 Patient encounter procedure Jorge Kong MD Work Phone: Orthopaedics Comment on above: Ganglion cyst of vol ar aspect of right wrist (Primary Dx); Ganglion cyst; Primary osteoarthritis of first carpometacarpal joint of right hand Start: 12-14-2021 End: 12-14-2021 Patient encounter procedure Brisa Shah MD Work Phone: [facility] Comment on above: Ganglion cyst (Prima ry Dx) Start: 04-15-2021 End: 04-16-2021 Emergency department patient visit Makayla Read [facility] 03 Start: 09-21-2020 End: 09-21-2020 Orders Only Wendy Patrick Work Phone: [facility] Start: 09-12-2018 End: 09-16-2018 Patient encounter procedure JOHN SAAB [facility] Start: 09-12-2018 End: 03-01-2019 Office outpatient visit 15 minutes John Saab Work Phone: [facility] [place] Comment on above: Sprain of left knee, unspecified ligament, initial encounter (Primary Dx); Acute pain of left knee Start: 03-21-2018 Patient encounter Facil [id number] Start: 02-17-2018 Patient encounter BRISA ALVAREZ) [facility] Procedures Date Procedure Procedure Detail Performing Clinician Start: 07-03-2024 Lipid 1996 panel - S kevin or Plasma Brisa Shah MD Work Phone: Start: 09-16-2023 Screening mammography Srinivasan Shah Work Phone: Start: 09-20-2022 Colonoscopy flx dx w/collj spec when pfrmd Edith Podlogar LOCOMOTIVE ELECTRICIAN.CARD READER Work Phone: Start: 09-20-2022 Colonoscopy Jett holder MD Work Phone: Start: 08-21-2022 Lipid 1996 panel - S kevin or Plasma Jett Braxton MD Work Phone: Start: 06-14-2022 End: 06-14-[address] Celestine ramires Work Phone: Start: 06-12-2021 Adult depression screening assessment Brsia Shah MD Work Phone: Start: 04-14-2021 Mammography Celestine Shah MD Work Phone: Start: 09-13-2018 Radiologic examinati on knee 3 views John Saab Work Phone: Plan of Treatment Date Care Activity Detail Author Start: 09-20-2032 Colonoscopy Colonoscopy [facility] Start: 09-20-2032 Colorectal Cancer Screening Colorectal Cancer Screening [facility] Start: 09-20-2032 Screening for malign ant neoplasm of colon [facility] Start: 06-07-2030 Urine microalbumin profile [facility] Start: 07-03-2029 Lipid panel Lipid Screening [facility] Start: 08-21-2027 Lipid 1996 panel - S kevin or Plasma Lipid Screening [facility] Start: 08-21-2027 Lipid panel Lipid Screening [facility] Start: 08-21-2027 LIPID SCREEN LIPID SCREEN [facility] Start: 07-03-2027 Diabetes Screening Diabetes Screenin g [facility] Start: 06-12-2026 LIPID SCREEN LIPID SCREEN [facility] Start: 04-28-2026 HPV TESTING HPV TESTING [facility] Start: 04-28-2026 PAP TESTING PAP TESTING [facility] Start: 04-28-2026 Screening for malign ant neoplasm of cervix [facility] Start: 08-21-2025 DIABETES SCREEN DIABETES SCREEN [facility] Start: 08-21-2025 Diabetes Screening Diabetes Screenin g [facility] Start: 07-03-2025 Annual PCP Team Site Project Manager bhaskar Disease Visit Annual PCP Team Chronic Disease Visit [facility] Start: 07-03-2025 Covid-19 Vaccine ( season) Covid-19 Vaccine ( season) [facility] Comment on above: Postponed from 03/15 (Declined at this time) Start: 07-03-2025 Pneumococcal Vaccine : 50+ (2 of 2 - PCV) Pneumococcal Vaccine: 50+ (2 of 2 - PCV) [facility] Comment on above: Postponed from 06/07 (Declined at this time) Start: 07-03-2025 Shingrix Vaccine (1 of 2) Shingrix Vaccine (1 of 2) [facility] Comment on above: Postponed from 06/21 (Declined at this time) Start: 07-02-2025 End: 07-02-2025 Patient encounter procedure 07/02/2025 8:40 AM EST Office Visit [facility] [address] [place] [id number] Brisa Shah MD [address] [place], [place] [id number] 1 year physical [facility] Comment on above: 1 year physical Start: 01-11-2025 Influenza vaccination Influenza Vacc ine (#1) [facility] Comment on above: Postponed from 03/15 (Declined at this time) Start: 01-11-2025 Screening mammography [facility] Start: 07-18-2024 Annual PCP Team Site Project Manager bhaskar Disease Visit Annual PCP Team Chronic Disease Visit [facility] Start: 07-03-2024 End: 07-03-2024 Patient encounter procedure 07/03/2024 9:00 AM EST Office Visit [facility] [address] [place] [id number] Brisa Shah MD [address] [place] [id number] physical-2 years since last one. [facility] Comment on above: physical-2 years sin ce last one. Start: 07-01-2024 End: 09-30-2024 25-hydroxyvitamin D3 [Mass/volume] in Serum or Plasma VITAMIN D 25 HYDROXY Lab Routine Annual physical exam Expected: 07/01/2024, Expires: 09/30/2024 [facility] Comment on above: Expected: 07/01/2024 , Expires: 09/30/2024 Start: 07-01-2024 End: 09-30-2024 CBC W Auto Differential panel - Blood COMPLETE BLOOD COUNT AND DIFFERENTIAL Lab Routine Annual physical exam Expected: 07/01/2024, Expires: 09/30/2024 [facility] Comment on above: Expected: 07/01/2024 , Expires: 09/30/2024 Start: 07-01-2024 End: 09-30-2024 Comprehensive metabolic 2000 panel - Serum or Plasma COMPREHENSIVE METABOLIC PANEL Lab Routine Annual physical exam Expected: 07/01/2024, Expires: 09/30/2024 [facility] Comment on above: Expected: 07/01/2024 , Expires: 09/30/2024 Start: 07-01-2024 End: 09-30-2024 Hemoglobin A1c in Blood HEMOGLOBIN A1C Lab Routine Annual physical exam Expected: 07/01/2024, Expires: 09/30/2024 [facility] Comment on above: Expected: 07/01/2024 , Expires: 09/30/2024 Start: 07-01-2024 End: 09-30-2024 Lipid 1996 panel - Serum or Plasma LIPID PANEL BASIC Lab Routine Annual physical exam Expected: 07/01/2024, Expires: 09/30/2024 [facility] Comment on above: Expected: 07/01/2024 , Expires: 09/30/2024 Start: 07-01-2024 End: 09-30-2024 Thyrotropin [Units/volume] in Serum or Plasma THYROID STIMULATING HORMONE Lab Routine Annual physical exam Expected: 07/01/2024, Expires: 09/30/2024 [facility] Comment on above: Expected: 07/01/2024 , Expires: 09/30/2024 Start: 06-12-2024 DIABETES SCREEN DIABETES SCREEN [facility] Start: 04-28-2024 Screening for malign ant neoplasm of cervix Cervical Cancer Screening [facility] Start: 03-15-2024 Covid-19 Vaccine ( season) Covid-19 Vaccine () [facility] Start: 03-15-2024 Influenza vaccination Influenza Vacc ine (#1) [facility] Start: 08-21-2023 ANNUAL PCP TEAM PRE OWNED SALES MANAGER BHASKAR DISEASE VISIT ANNUAL PCP TEAM CHRONIC DISEASE VISIT [facility] Start: 08-21-2023 COVID-19 VACCINE (#1) COVID-19 VACCI NE (#1) [facility] Comment on above: Postponed from 12/20 (Declined at this time) Start: 08-21-2023 HEPATITIS B (1 of 3 - 3-dose series) HEPATITIS B (1 of 3 - 3-dose series) [facility] Comment on above: Postponed from 06/21 (Declined at this time) Start: 08-21-2023 Hepatitis B Vaccine (1 of 3 - 3-dose series) Hepatitis B Vaccine (1 of 3 - 3-dose series) [facility] Comment on above: Postponed from 06/21 (Declined at this time) Start: 08-21-2023 PNEUMOCOCCAL (2 - PCV) PNEUMOCOCCAL (2 - PCV) [facility] Comment on above: Postponed from 06/07 (Declined at this time) Start: 08-21-2023 Pneumococcal vaccination [facility] Comment on above: Postponed from 06/07 (Declined at this time) Start: 08-21-2023 SPIROMETRY SPIROMETRY [facility] Comment on above: Postponed from 06/21 (Declined at this time) Start: 07-15-2023 Depression Assessment Depression Ass essment [facility] Start: 06-14-2023 Mammography [facility] Start: 06-14-2023 Screening for malign ant neoplasm of breast Mammogram Screening [facility] Start: 03-15-2023 Covid-19 Vaccine ( season) Covid-19 Vaccine ( season) [facility] Start: 03-15-2023 Influenza vaccination Influenza Vacc ine (#1) [facility] Start: 01-11-2023 Influenza vaccination INFLUENZA (#1) [facility] Comment on above: Postponed from 03/15 (Declined at this time) Start: 12-14-2022 ANNUAL PCP TEAM PRE OWNED SALES MANAGER BHASKAR DISEASE VISIT ANNUAL PCP TEAM CHRONIC DISEASE VISIT [facility] Start: 08-21-2022 End: 10-21-2022 25-hydroxyvitamin D3 [Mass/volume] in Serum or Plasma [facility] Work Phone: Comment on above: Expected: 08/21/2022 , Expires: 10/21/2022 Start: 08-21-2022 End: 10-21-2022 CBC panel - Blood by Automated count [facility] Work Phone: Comment on above: Expected: 08/21/2022 , Expires: 10/21/2022 Start: 08-21-2022 End: 10-21-2022 Comprehensive metabolic 2000 panel - Serum or Plasma [facility] Work Phone: Comment on above: Expected: 08/21/2022 , Expires: 10/21/2022 Start: 08-21-2022 End: 10-21-2022 Lipid 1996 panel - Serum or Plasma [facility] Work Phone: Comment on above: Expected: 08/21/2022 , Expires: 10/21/2022 Start: 06-12-2022 Adult depression screening assessment DEPRESSION SCREENING [facility] Start: 04-14-2022 Mammography MAMMOGRAM [facility] Start: 03-15-2022 Influenza vaccination C [facility] Start: 07-15-2021 DEPRESSION ASSESSMENT DEPRESSION ASS ESSMENT [facility] Start: 06-07-2021 PNEUMOCOCCAL (2 - PCV) PNEUMOCOCCAL (2 - PCV) [facility] Start: 06-07-2021 Pneumococcal Vaccine : 50+ (2 of 2 - PCV) Pneumococcal Vaccine: 50+ (2 of 2 - PCV) [facility] Start: 03-15-2020 Influenza vaccinatio n given Sequential Influenza Vaccine (#1) [facility] Start: 2019 Administration of he rpes zoster vaccine Zoster Vaccines (1 of 2) [facility] Start: 2019 Screening for malign ant neoplasm of colon [facility] Start: 2019 SHINGRIX VACCINE (1 of 2) SHINGRIX VACCINE (1 of 2) [facility] Start: 03-15-2018 Influenza vaccinatio n given SEQUENTIAL INFLUENZA VACCINE (#1) [facility] Start: 2014 COLOGUARD (FIT-DNA) COLOGUARD (FIT-D NA) [facility] Start: 2014 Colonoscopy COLONOSCOPY [facility] Start: 2014 COLORECTAL CANCER SCREENING COLORECTAL CANCER SCREENING [facility] Start: [address] COLONOGRAPHY [facility] Start: 2014 FECAL OCCULT BLOOD FECAL OCCULT BLOO D [facility] Start: 2014 Screening for malign ant neoplasm of colon [facility] Start: 2014 SIGMOIDOSCOPY SIGMOIDOSCOPY [facility] Start: 1988 Hepatitis B Vaccine (1 of 3 - 19+ 3-dose series) Hepatitis B Vaccine (1 of 3 - 19+ 3-dose series) [facility] Start: 1987 Anxiety Screening Anxiety Screening [facility] Start: 1987 Depression Screening Depression Scre ening [facility] Start: 1987 Hepatitis C antibody , confirmatory test Hepatitis C Screening [facility] Start: 1987 SPIROMETRY SPIROMETRY [facility] Start: 1985 COVID-19 Vaccine (1 of 2) COVID-19 Vaccine (1 of 2) [facility] Start: 1984 HIV screening HIV Screening [place] Start: 1981 Adolescent depressio n screening assessment Depression Screening (PHQ9) [facility] Start: 1974 COVID-19 VACCINE (#1) COVID-19 VACCI NE (#1) [facility] Start: 1972 History and physical examination, annual for health maintenance Wellness Visit [facility] Start: 1969 COVID-19 VACCINE (#1) COVID-19 VACCI NE (#1) [facility] Start: 1969 HEPATITIS B (1 of 3 - 3-dose series) HEPATITIS B (1 of 3 - 3-dose series) [facility] Start: 1969 Protein mass conc Mammogram [facility] Start: 1969 Screening for malign ant neoplasm of cervix PAP SMEAR [facility] Start: 1969 Screening mammography Mammogram [facility] Start: 1969 Tetanus vaccination [facility] End: 07-31-2025 DBT Breast - bilateral screening [facility] SCREENING W JORGE Radiology Routine Encounter for screening mammogram for breast cancer 1 Occurrences starting 07/01/2024 until 07/31/2025 [facility] Work Phone: Comment on above: 1 Occurrences starti ng 07/01/2024 until 07/31/2025 Liquid based cervica l cytology screening [facility] End: 08-22-2024 WOLFGANG SCREENING [facility] SCREENING Radiology Routine Encounter for screening mammogram for breast cancer 1 Occurrences starting 07/24/2023 until 08/22/2024 [facility] Work Phone: Comment on above: 1 Occurrences starti ng 07/24/2023 until 08/22/2024 End: 08-21-2023 Screening colonoscopy COLONOSCOPY SCREENING Endoscopy Routine Screening for colon cancer 1 Occurrences starting 08/21/2022 until 08/21/2023 [facility] Work Phone: Comment on above: 1 Occurrences starti ng 08/21/2022 until 08/21/2023 End: 06-22-2023 Screening mammography bi 2-view breast inc cad [facility] SCREENING Radiology Routine Encounter for screening mammogram for breast cancer 1 Occurrences starting 05/23/2022 until 06/22/2023 [facility] Work Phone: Comment on above: 1 Occurrences starti ng 05/23/2022 until 06/22/2023 [facility] Immunizations Immunization Date Immunization Notes Care Provider Jhonatan acevedo 06-07-2020 pneumococcal polysaccharide vaccine, 23 valgabi Shah MD Work Phone: [facility] 06-07-2020 tetanus toxoid, redu zen diphtheria toxoid, and acellular pertussis vaccine, adsorbed Christopher Bursley MD Work Phone: [facility] 08-07-2005 diphtheria, tetanus toxoids and acellular pertussis vaccine Brisa Shah MD Work Phone: [facility] Payers Date Payer Category Payer Self-pay [id number] 2013 Unknown 2009 Unknown [id number] 2009 Unknown [employer] OUT OF STATE [facility] [place] [place] xxxxxxxxxxxx 2009-Present xxxxxxxxxxxx [id number] 2009 Unknown [id number] 1969 Unknown [id number] 1969 Unknown [id number] Self-pay [id number] Unknown [id number] Unknown [id number] Social History Date Type Detail Facility Start: 09-12-2018 End: 09-16-2023 Tobacco smoking status NHIS Never smoker [facility] Work Phone: Start: 1970 Sex Assigned At Not on file [facility] Start: 09-12-2018 End: 08-21-2022 Tobacco use and exposure Never used [facility] Start: 09-12-2018 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 intake 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 (finding) [facility] Start: 06-14-2022 End: 09-16-2023 Tobacco smoking consumption unknown [facility] Start: 12-14-2021 End: 07-18-2023 Alcohol intake Current drinker of alcohol (finding) [facility] Start: 01-31-2018 History SDOH Alcohol Comment rarely [facility] Start: 12-03-2021 End: 01-08-2022 Exposure to SARS-CoV-2 (event) Not sure [facility] Start: 1970 Sex Assigned At Female [facility] Start: 09-20-2022 End: 07-03-2024 History of Social function [facility] Work Phone: Start: 09-20-2022 End: 07-03-2024 Tobacco use panel [facility] Work Phone: Adult Depression Screening Assessment 0 [facility] Work Phone: Start: 07-03-2024 Alcoholic beverage intake Ex-drinker (finding) [facility] Clinical Notes 12-14-2021 to 01-11-2025 Note Date & Type Note Facility 01-11-2025 Progress note [facility] 01-11-2025 Progress note Note Date/Time January 11, 2025 2:09pm [facility] [address], [address] [place] [address] OFFICE VISIT Date of Service: 01/11/25 MR#: [id number] Acct: [id number] Name: ANGEL HEATON Rep #: [id number] : 1970 Provider: Dr. 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 Is patient in pain?: No Allergies peanut Allergy (Severe, Verified 01/11/25 13:11) Anaphylaxis Sulfa (Sulfonamide Antibiotics) Allergy (Verified 01/11/25 13:11) Rash Medications ?Medication ?Instructions ?Recorded ?Confirmed ?Type multivitamin,ln-lbha-sbtldscl 1 tab PO DAILY 03/03/20 01/11/25 History (Complete Multivitamin tablet) B-complex with vitamin C 1 cap PO DAILY 10/13/21 06/3 0/25 History ascorbate calcium (vitamin C) 500 500 mg PO DAILY 04/1401/11/25 History mg tablet cholecalciferol (vitamin D3) 50 50 mcg PO DAILY 01/11/25 History mcg (2,000 unit) capsule lactobacillus combination no.4 3 3,000 mmu cells PO QD AY 01/11/25 01/11/25 History billion cell capsule (Probiotic) multivitamin with minerals 1 tab PO QDAY 01/11/2512/15 History (Hair,Skin and Nails tablet) Post menopausal: No Patient : No : No PFSH Medical History Fibromyalgia Surgical History S/P eye surgery Family History Unknown Diabetes Mother Diabetes Grandfather Diabetes Grandmother Diabetes Brother Diabetes Sister Diabetes Social History Smoking Status: Never smoker alcohol intake: never substance use type: does not use caffeine: Yes what type of physical activity do you participate in: walking and running frequency: daily seatbelt use: always do you feel safe at home: Yes additional social history: Raquel Foley 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 Date Name GA/Weeks Outcome Route Bth Weight Gen Labor Lgth Anesthesia Del Locatn Provider FOB Unknown 1992 [place] live - full term Unknown 1994 Lucy live - full term Unknown 1996 Mahamed live - full term Unknown 1996 Jyoti (ADOPTED INTO [facility]) Unknown 2004 Latonya live - full term HPI Encounter for routine gynecological examination Details: ANGEL HEATON is a 54 year old who presents for annual exam. talks about joint pain today. has been traveling a lot. is 71. she is Lucy west's mom and she had baby john. She continues to feel worried about her weight. we discussed trying the plant paradox diet. Last PAP: 03/03/2020 History of abnormal PAP: mp Last mammogram: today, results pending History of abnormal mammogram:lymph node seen in past Colon cancer screening: followed by pcp Other preventative health care screenings: followed by pcp Female Reproductive History Questions: metorrhagia: No, sexually active: Yes, dyspareunia: No and PCB: No Menopausal Symptoms: No hot flashes, No night sweats, No weight change, No mood changes, No difficulty concentrating, No sleep problems and No change in libido ROS Const Constitutional: Reports as per HPI; Denies fatigue, increased appetite, poor appetite, night sweats, weight gain or weight loss Cardio Card: Denies chest pain Resp Resp: Denies cough or dyspnea GI GI: Reports as per HPI; Denies abdominal pain, bloating, constipation, nausea or vomiting : Reports as per HPI and other; Denies difficulty voiding, dysuria, hematuria, hot flashes, nipple discharge, pelvic pain, prolapse symptoms, urinary frequency, urinary incontinence, urinaryurgency, vaginal discharge, vaginal dryness, vaginal odor or vaginal pruritus Skin Skin/Breast: Denies changing lesions, breast mass, breast pain, breast skin changes or nipple discharge Psych Psych: Denies anxiety, change in libido, depression or difficulty concentrating Exam Const General: cooperative, healthy appearing, comfortable, no acute distress, well developed and well groomed HENMD Head: normal to inspection and normocephalic Ears: hearing grossly normal bilaterally and external ears normal Nose: external nose normal Face and sinus: normal facial exam Neck Neck: normal visual inspection, full ROM and no lymphadenopathy Thyroid: thyroid normal Chest Chest palpation & inspection: normal inspection of the chest Breast inspection: normal inspection of the breasts and normal inspection of theaxillae Breast palpation: normal palpation of the breasts, normal palpation of the axillae and no axillary lymphadenopathy Resp Effort & Inspection: normal respiratory effort GI Inspection: normal to inspection and non-distended Palpation: soft, no hepatosplenomegaly and no guarding General: bladder normal to palpation External Female Exam: normal external appearance, normal appearance of the urethra and no lesions Urethra: normal appearance of the urethra and normal palpation Speculum Exam - Vagina: normal appearance of the vagina and normal vaginal discharge Speculum Exam - Cervix: normal appearance of the cervix, no cervical discharge, no lesions and nontender Bimanual Exam- Vagina & Uterus: normal bimanual exam, uterine size normal, bladder normal to palpation, No tender, uterine mobility normal, consistency normal, non-tender and no cervical motion tenderness Bimanual Exam- Adnexa, other: normal adnexae, no masses and non-tender Skin General: no rashes or lesions noted Neuro General: patient alert, moves all extremities and no focal motor deficits Extrem General: normal to inspection and no pedal edema Psych Appearance: grossly normal Mental Status: mental status grossly normal Affect: normal affect Speech and Movement: speech and movement normal Attitude: cooperative Coding Level of Care Code Off vis,est,prev 40-64yrs Diagnoses Encounter for routine gynecological examination Z01.419 Assessment and Plan Assessment and Plan (1) Encounter for routine gynecological examination: Plan: Cervical cancer screening: pap done today Breast cancer screening: mammogram results pending. other health maintenance examination reviewed and orders placed if needed. Encouraged maintenance of a healthy weight and active lifestyle and handout given. Annual exam handout including recommendations for good health guidelines, Calcium/vitamin D recommendations, and basic screening information given. Problem list up to date, see problem list details for any additional plan information. Follow up in one year for annual health maintenance exam or sooner if needed. Orders: Orders PAP IG HPV APTIMA 16/18,45 Today Z12.4 - Encounter for screening for malignant neoplasm of cervix 01/11/25 1409 <Electronically signed by Neisha Malone DO> Date _ Neisha Avitia DO Cosigner Signature: Date (if applicable) CC: ~ [facility] Work Phone: 1(113) 465-874705-23-2025 NoteHNO ID: [id number] Author: DARIEN MITTAL MD Service: ? Author Type: Physician Type: Progress Notes Filed: 12/04/2024 10:04 Note Text: Patient presents with: Eye Problem: Left eye feels stye coming on and wants to get ahead of it for the upcoming weekend HPI: Patient presents today for office visit for stye. Has an issues with a left eye. Gets them frequently Woke up this am and noted pain on it. 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 No vision issues. Last issue was April. MEDICATIONS: Current Outpatient Medications Medication Sig vitamin K2 40 mcg tab Take by mouth. magnesium oxide 200 mg magnesium chew Take by mouth. EPINEPHrine (EPIPEN) 0.3 mg/0.3 mL auto-injector Inject 0.3 mL intramuscularly as needed. albuterol HFA (VENTOLIN HFA) 90 mcg/actuation inhaler Inhale 2 Puffs as instructed every 4 hours as needed for wheezing/shortness of breath. Selenium Sulfide 2.25 % sham Apply to [...] No current facility-administered medications for this visit. ALLERGIES: ALLERGIES Allergen Reactions Peanuts Anaphylaxis Steroids [Corticost* Other: See Comments Avoid steroid after retina surgery 02/2020. Vision change 2/2 cortisol Sulfa (Sulfonamide * Rash PAST MEDICAL HISTORY Diagnosis Date Arthritis Complex tear of medial meniscus of right knee, unspecified whether old or current tear, sequela remote tear Eczema Exercise-induced asthma (HCC) Fibromyalgia GERD (gastroesophageal reflux disease) History of COVID-19 01/2021 Mitral valve prolapse Retinal vascular abnormality 02/2020 Retinal specialist in [place] PAST SURGICAL HISTORY Procedure Laterality Date COLONOSCOPY 09/20/2022 repeat in 10 years EYE SURGERY HX PAST SURGICAL HISTORY OF Left 02/2020 retina surgery, cortisol buildup SKIN BIOPSY HX FAMILY HISTORY Problem Relation Age of Onset Thyroid Father Prostate Cancer Father other (Hypertenstion) Father other (Elevated Cholesterol) Father Diabetes Sister Diabetes Sister Diabetes Brother Diabetes Mother Depression Son Social History Tobacco Use Smoking status: Never Smokeless tobacco: Never Vaping Use Vaping status: Never Used Substance Use Topics Alcohol use: Not Currently Drug use: No Reviewed current medications, allergies, past medical history, surgical history, family history and social history today. REVIEW OF SYSTEMS No fever. No drainage. All other reviewed and negative other than HPI. VITALS: BP 122/78 Pulse 78 Temp 36.6 ?C (97.8 ?F) Wt 68 kg (150 lb) LMP 05/29/2021 (Exact Date) SpO2 99% BMI 24.21 kg/m? Last 4 Encounter Wt Readings: Date: Wt: 12/04/2024 68 kg (150 lb) 07/03/2024 69.6 kg (153 lb 6.4 oz) 08/21/2022 67.2 kg (148 lb 3.2 oz) 12/14/2021 66.1 kg (145 lb 12.8 oz) PHYSICAL EXAMINATION: General appearance: Well appearing, alert, in no acute distress, well-hydrated, well nourished. Skin: Skin color, texture, turgor normal, no suspicious rashes or lesions Eyes: Anicteric sclera. Pupils are equally round and reactive to light. Extraocular movements are intact. , has small developing stye on right lower lid. No cellulitis. ASSESSMENT/PLAN: 1. Hordeolum externum of left lower eyelid - ICD9: 373.11, ICD10: H00.015 - Discussed risks and benefits of new medication with the patient. Advised them to call if any side effects or questions. Red flags for re-assessment reviewed with patient in detail. Call if symptoms worsen at all or if not better in one week Reviewed diagnosis and treatment options in detail. Questions were answered. Patient expressed understanding of treatment plan. - CIPROFLOXACIN 0.3 % EYE DROPS MD Darien Bynum, [facility]12-23-2024 Telephone encounter Note* Telephone Encounter - Juany Fuller MA - 07/06/2024 1:55 PM EST Letter mailed to pt home of results. Juany Fuller MA [facility]12-23-2024 Miscellaneous Notes* Telephone Encounter - Juany Fuller MA - 07/06/2024 1:55 PM EST Letter mailed to pt home of results. Juany Fuller MA * Telephone Encounter - Juany Fuller MA - 07/06/2024 1:54 PM EST ----- Message from Brisa Shah MD sent at 07/06/2024 10:33 AM EST ----- Normal labs aside from high cholesterol. Patient still considered low risk for heart attack and stroke despite her cholesterol increasing over the last year. Recommend low cholesterol diet and exercise. Recheck in 1 year. The 10-year ASCVD risk score (Aleena JONES, et al., 2019) is: 1.1% Values used to calculate the score: Age: 54 years Sex: Female Is Non- : No Diabetic: No Tobacco smoker: No Systolic Blood Pressure: 102 mmHg Is BP treated: No HDL Cholesterol: 99 mg/dL Total Cholesterol: 291 mg/dL documented in this encounterAsht[facility]12-23-[facility]24 Telephone encounter Note * Telephone Encounter - Juany Fuller MA - 07/06/2024 1:54 PM EST ----- Message from Brisa Shah MD sent at 07/06/2024 10:33 AM EST ----- Normal labs aside from high cholesterol. Patient still considered low risk for heart attack and stroke despite her cholesterol increasing over the last year. Recommend low cholesterol diet and exercise. Recheck in 1 year. The 10-year ASCVD risk score (Aleena JONES, et al., 2019) is: 1.1% Values used to calculate the score: Age: 54 years Sex: Female Is Non- : No Diabetic: No Tobacco smoker: No Systolic Blood Pressure: 102 mmHg Is BP treated: No HDL Cholesterol: 99 mg/dL Total Cholesterol: 291 mg/dL [facility]12-20-2024 NoteHNO ID: [id number] Author: BRISA SHAH MD Service: ? Author Type: Physician Type: Progress Notes Filed: 07/03/2024 10:03 Note Text: Chief Complaint Patient presents with: Yearly Exam: last seen 2 years ago HARMEET Heaton is a 54 year old female who presents here today for annual physical. Patient has been in good health without recent hospitalizations, ER visits. No concerns today. [facility] on a yearly basis. No change in regimen at last OV in September. No concerns today. Also notes that she went to [facility] 1-2 months ago for some right knee swelling after trip to [facility]. Has remote right medial meniscus tear with mild arthritis. Discussed surgery, but is not interested now due to no pain or swelling on a regular basis. Patient frustrated because she would like to lose 7 lbs and is having difficulty with this. Working on diet and exercise. Due for routine labs. 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 States she had pap smear this year which was reportedly normal. Mammogram completed in September which was normal. Refusing vaccinations today. Past medical history, appointments, medications, allergies reviewed. Previous Medical History PAST MEDICAL HISTORY Diagnosis Date Arthritis Complex tear of medial meniscus of right knee, unspecified whether old or current tear, sequela remote tear Eczema Exercise-induced asthma Fibromyalgia GERD (gastroesophageal reflux disease) History of COVID-19 01/2021 Mitral valve prolapse Retinal vascular abnormality 02/2020 Retinal specialist [place] Previous Surgical History PAST SURGICAL HISTORY Procedure [...] retina surgery 02/2020. Vision change 2/2 cortisol Sulfa (Sulfonamide * Rash Current Medications Current Outpatient Medications on File Prior to Visit Medication Sig vitamin K2 40 mcg tab Take by mouth. magnesium oxide 200 mg magnesium chew Take by mouth. 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: Negative for abnormal vaginal bleeding, abnormal vaginal discharge MUSCULOSKELETAL: See HPI SKIN: Negative for lesions, rash, and itching PSYCH: Negative for sleep disturbance, mood disorder and recent psychosocial stressors HEMATOLOGY/LYMPHOLOGY: Negative for prolonged bleeding, bruising easily or swollen nodes ENDOCRINE: Negative for cold or heat intolerance, polyuria, polydipsia and goiter NEURO: No history of headaches, syncope, paralysis, seizures or tremors EXAM: BP 102/62 (BP Site: Left Arm, BP Position: Sitting, BP Cuff Size: Large Adult) Pulse 72 Resp 12 Ht 167.6 cm (5' 6) Wt 69.6 kg (153 lb 6.4 oz) LMP 05/29/2021 (Exact Date) SpO2 100% BMI 24.76 kg/m? General Appearance: Well appearing, alert, in no acute distress, well-hydrated, well nourished.. Skin: Skin color, texture, turgor normal, no suspicious rashes or lesions. Head: N (more content not included)...[facility]12-20-2024 History of Present illness Narrative* Brisa Shah MD - 07/03/2024 9:08 AM EST Chief Complaint Patient presents with: Yearly Exam: last seen 2 years ago HARMEET Heaton is a 54 year old female who presents here today for annual physical. Patient has been in good health without recent hospitalizations, ER visits. No concerns today. [facility] on a yearly basis. No change in regimen at last OV in September. No concerns today. Also notes that she went to [facility] 1-2 months ago for some right knee swelling after trip to [facility]. Has remote right medial meniscus tear with mild arthritis. Discussed surgery, but is not interested now due to no pain or swelling on a regular basis. Patient frustrated because she would like to lose 7 lbs and is having difficulty with this. Workingon diet and exercise. Due for routine labs. 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 States she had pap smear this year which was reportedly normal. Mammogram completed in September which was normal. Refusing vaccinations today. Past medical history, appointments, medications, allergies reviewed. 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 Vision change 2/2 cortisol Sulfa (Sulfonamide * Rash Current Medications Current Outpatient Medications on File Prior to Visit Medication Sig vitamin K2 40 mcg tab Take by mouth. magnesium oxide 200 mg magnesium chew Take by mouth. albuterol HFA (VENTOLIN HFA) 90 mcg/actuation inhaler Inhale 2 Puffs as instructed every 4 hours asneeded for wheezing/shortness of breath. 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 vaginal bleeding, abnormal vaginal discharge MUSCULOSKELETAL: See HPI SKIN: Negative for lesions, rash, and itching PSYCH: Negative for sleep disturbance, mood disorder and recent psychosocial stressors HEMATOLOGY/LYMPHOLOGY: Negative for prolonged bleeding, bruising easily or swollen nodes ENDOCRINE: Negative for cold or heat intolerance, polyuria, polydipsia and goiter NEURO: No history of headaches, syncope, paralysis, seizures or tremors EXAM: BP 102/62 (BP Site: Left Arm, BP Position: Sitting, BP Cuff Size: Large Adult) Pulse 72 Resp 12 Ht 167.6 cm (5' 6) Wt 69.6 kg (153 lb 6.4 oz) LMP 05/29/2021 (Exact Date) SpO2 100% BMI 24.76 kg/m General Appearance: Well appearing, alert, in [...] without murmur, gallop, or rubs. No ectopy. Abdomen: Normal abdominal exam, Abdomen soft, non-tender. Bowel sounds normal. No masses, organomegaly. Extremities: No deformities, edema, skin discoloration, clubbing or cyanosis. Good capillary refill. . Peripheral Pulses: Normal. Neurologic: CN II-XII intact grossly. Lymph Nodes: No cervical lymphadenopathy and No supraclavicular lymphadenopathy. Health Maintenance List Spirometry Never done Depression Screening Never done Anxiety Screening Never done Hepatitis B Vaccine(1 of 3 - 19+ 3-dose series) Never done Shingrix Vaccine(1 of 2) Never done Pneumococcal Vaccine: 50+(2 of 2 - PCV) due on 06/07/2021 Mammogram Screening due on 06/14/2023 Influenza Vaccine(1) Never done Covid-19 Vaccine( - 2023- season) Never done Cervical Cancer Screening due on 04/28/2024 Annual PCP Team Chronic Disease Visit due on 07/18/2024 Diabetes Screening due on 08/21/2025 Lipid Screening due on 08/21/2027 DTaP,Tdap,Td Vaccine(4 - Td or Tdap) due on 06/07/2030 Colorectal Cancer Screening due on 09/20/2032 Hepatitis C Screening Discontinued HIV Screening Discontinued Data reviewed Latest Ref Rng 08/21/2022 Protein, Total 6.3 - 8.0 g/dL 7.6 Albumin 3.9 - 4.9 g/dL 4.6 Calcium 8.5 - 10.2 mg/dL 10.2 Bilirubin, Total 0.2 - 1.3 mg/dL 0.2 Alkaline Phosphatase 34 - 123 U/L 52 AST 13 - 35 U/L 21 ALT 7 - 38 U/L 22 Glucose 74 - 99 mg/dL 92 BUN 7 - 21 mg/dL 22 (H) Creatinine 0.58 - 0.96 mg/dL 0.63 Sodium 136 - 144 mmol/L 140 Potassium 3.7 - 5.1 mmol/L 4.3 Chloride 97 - 105 mmol/L 105 CO2 22 - 30 mmol/L 26 Anion Gap 9 - 18 mmol/L 9 eGFR >=60 mL/min/1.73m 106 WBC 3.70 - 11.00 k/uL 6.18 RBC 3.90 - 5.20 m/uL 4.52 Hemoglobin 11.5 - 15.5 g/dL 12.5 Hematocrit 36.0 - 46.0 % 39.3 MCV 80.0 - 100.0 fL 86.9 MCH 26.0 - 34.0 pg 27.7 MCHC 30.5 - 36.0 g/dL 31.8 RDW-CV 11.5 - 15.0 % 14.8 Platelet Count 150 - 400 k/uL 250 MPV 9.0 - 12.7 fL 13.3 (H) Absolute nRBC <0.01 k/uL <0.01 Cholesterol, Total <200 mg/dL 233 (H) Triglyceride <150 mg/dL 62 HDL Cholesterol >39 mg/dL 81 Non HDL Cholesterol <130 mg/dL 152 (H) Fasting Time hrs 13 VLDL Cholesterol <30 mg/dL 12 TC:HDL Ratio <5.10 2.88 LDL Cholesterol <100 mg/dL 140 (H) LDL:HDL Ratio <2.54 1.73 Vitamin D 25 Hydroxy 31.0 - 80.0 ng/mL 41.0 Legend: (H) High ASSESSMENT/PLAN: 1. Annual physical exam - ICD9: V70.0, ICD10: Z00.00 (primary diagnosis) - Counseled on healthy diet and regular exercise - Follow up for annual exam in one year 2. Exercise-induced asthma - ICD9: 493.81, ICD10: J45.990 - Exercise-induced asthma stable - Continue current medications - Avoidance of triggers recommended 3. Peanut allergy - ICD9: V15.01, ICD10: Z91.010 Requesting refill on epi pen. - EPINEPHRINE 0.3 MG/0.3 ML INJECTION, AUTO-INJECTOR 4. Retinal vascular abnormality - ICD9: 362.10, ICD10: H35.00 No vision changes. F/u with optho as scheduled. 5. Complex tear of medial meniscus of right knee, unspecified whether old or current tear, sequela - ICD9: 905.6, ICD10: S83.231S Discussed with patient that surgery is an option for this, but if she is asymptomatic we could monitor at this time. Patient not interested in surgery while asymptomatic. Brisa Shah MD documented in this encounterAsht[facility]ula [facility]12-18-2024 NoteHNO ID: [id number] Author: KITA POLLACK RN Service: ? Author Type: Registered Nurse Type: Progress Notes Filed: 07/01/2024 12:57 Note Text: Called pt and notified. She will go to appt first and labs after.[facility]12-18-2024 History of Present illness Narrative* Kita Pollack RN - 07/01/2024 12:57 PM EST Called pt and notified. She will go to appt first and labs after. * Brisa Shah MD - 07/01/2024 11:20 AM EST If she is going to do that, then I would wait until after her appointment to make sure she doesn't need any other labs. * Kita Pollack RN - 07/01/2024 10:53 AM EST Pt lives in [place] and babysits grandchildren. She asked to get labs drawn the day of her appt. She is aware that results would not be back before appt with Dr. Shah. * Brisa Shah MD - 07/01/2024 10:38 AM EST Fasting labs ordered. Complete 1 day prior to OV. * Kita Pollack RN - 07/01/2024 10:07 AM EST Called and spoke with pt. She didn't realize she needed to come in once a year. She thought she needed to come only when she is sick. Pt asking if she could have her appt and labwork done prior to the end of the year because they have met their deductible. Pt booked for Saturday at 9 am. Pt will come in prior to appt to get labs drawn. Pt requesting thyroid and HgA1c be checked as well dueto strong family hx of thyroid problems and diabetes Orders pended with diagnosis code annual physical exam. Z00.0 * Brisa Shah MD - 07/01/2024 6:58 AM EST Patient overdue for annual physical. Please contact to schedule OV in next 1-2 months. documented in this encounterAsht[facility]ula [facility]12-18-2024 NoteHNO ID: [id number] Author: BRISA SHAH MD Service: ? Author Type: Physician Type: Progress Notes Filed: 07/01/2024 11:20 Note Text: If she is going to do that, then I would wait until after her appointment to make sure she doesn't need any other labs.[facility]12-18-2024 NoteHNO ID: [id number] Author: KITA POLLACK RN Service: ? Author Type: Registered Nurse Type: Progress Notes Filed: 07/01/2024 10:54 Note Text: Pt lives in [place] and babysits grandchildren. She asked to get labs drawn the day of her appt. She is aware that results would not be back before appt with Dr. Shah.[facility]12-18-2024 NoteHNO ID: [id number] Author: BRISA SHAH MD Service: ? Author Type: Physician Type: Progress Notes Filed: 07/01/2024 10:38 Note Text: Fasting labs ordered. Complete 1 day prior to OV.[facility] 07-01-2024 NoteHNO ID: [id number] Author: KITA POLLACK, YOUNG Service: ? Author Type: Registered Nurse Type: Progress Notes Filed: 07/01/2024 10:54 Note Text: Called and spoke with pt. She didn't realize she needed to come in once a year. She thought she needed to come only when she is sick. Pt asking if she could have her appt and labwork done prior to the end of the year because they have met their deductible. Pt booked for Saturday at 9 am. Pt will come in prior to appt to get labs drawn. Pt requesting thyroid and HgA1c be checked as well due to strong family hx of thyroid problems and diabetes Orders pended with diagnosis code annual physical exam. Z00.0[facility]12-18-2024 NoteHNO ID: [id number] Author: BRISA SHAH MD Service: ? Author Type: Physician Type: Progress Notes Filed: 07/01/2024 10:54 Note Text: Patient overdue for annual physical. Please contact to schedule OV in next 1-2 months.[facility]12-18-2024 NotePatient Outreach (INTMMN) ANGEL HEATON ([id number]) 1970 F Date Time Provider Department 07/01/24 BRISA SHAH INTKASI During your visit today, we recorded the following information about you: Brisa Shah MD 07/01/2024 10:54 AM Signed Patient overdue for annual physical. Please contact to schedule OV in next 1-2 months. Kita Pollack RN 07/01/2024 10:54 AM Signed Called and spoke with pt. She didn't realize she needed to come in once a year. She thought she needed to come only when she is sick. Pt asking if she could have her appt and labwork done prior to the end of the year because they have met their deductible. Pt booked for Saturday at 9 am. Pt will come in prior to appt to get labs drawn. Pt requesting thyroid and HgA1c be checked as well due to strong family hx of thyroid problems and diabetes Orders pended with diagnosis code annual physical exam. Z00.0 Brisa Shah MD 07/01/2024 10:38 AM Signed Fasting labs ordered. Complete 1 day prior to OV. Kita Pollack RN 07/01/2024 10:54 AM Signed Pt lives in [place] and babysits grandchildren. She asked to get labs drawn the day of her appt. She is aware that results would not be back before appt with Dr. Shah. Brisa Shah MD 07/01/2024 11:20 AM Signed If she is going to do that, then I would wait until after her appointment to make sure she doesn't need any other labs. Kita Pollack RN 07/01/2024 12:57 PM Signed Called pt and notified. She will go to appt first and labs after. Allergies As of Date: 07/01/2024 Noted Allergy Reaction PEANUTS 05/06/2014 10 - Anaphylaxis STEROIDS (CORTICOSTEROIDS (GLUCOC*06/07/2020 14 - Other: See Comments Comments: Avoid steroid after retina surgery 02/2020. Vision change 2/2 cortisol SULFA (SULFONAMIDE ANTIBIOTICS) 05/06/2014 2 - Rash Date Reviewed: 07/18/2023 Reviewed by: Rocio Aragon LPN - Fully Assessed Primary Visit Diagnosis:Routine medical exam [Z00.00] Other Visit Diagnoses:Encounter for screening mammogram for breast cancer [Z12.31] Annual physical exam [Z00.00] Order(s):WOLFGANG SCREENING W JORGE [[id number]] Order #: [id number] FUTURE COMPLETE BLOOD COUNT AND DIFFERENTIAL [SQCBCDIF] Order #: [id number] FUTURE COMPREHENSIVE METABOLIC PANEL [SQCMP] Order #: [id number] FUTURE HEMOGLOBIN A1C [JBUGJ0P] Order #: [id number] FUTURE VITAMIN D 25 HYDROXY [SQVITD] Order #: [id number] FUTURE LIPID PANEL BASIC [SQLIPB] Order #: [id number] FUTURE THYROID STIMULATING HORMONE [SQTSH] Order #: [id number] FUTURE Prescriptions as of 07/01/2024 - albuterol HFA (VENTOLIN HFA) 90 mcg/actuation [...] once daily. Problem List As Of Date 07/01/2024 Noted Resolved Exercise-induced asthma [J45.990] 10/30/2017 Fibromyalgia [M79.7] Encounter Status:Closed by KITA POLLACK on 07/01/24[facility] 07-18-2023 Miscellaneous Notes* Telephone Encounter - Brisa Shah MD - 07/18/2023 9:57 AM EST Reviewed. * Telephone Encounter - Justina Virk RN - 07/18/2023 9:48 AM EST Spoke with patient. Reports negative home COVID test on 07/06/23, when sx's began. -Sx's began 07/06 with cough and ears felt blocked and teeth hurt -last week cough was productive, now it is not but it is annoying, I'm coughing a lot. -cold air makes cough worse -has asthma, uses inhaler=effective -ears still feel blocked today -denies wheezing -denies fever -no SOB -no body aches or fatigue -throat sometimes feels irritated in mornings due to drainage -has used Claritin, Delsym and vaporizer Appt kept as scheduled for today with Dr. Shah. Justina Virk RN * Telephone Encounter - Brisa Shah MD - 07/18/2023 9:06 AM EST Patient on my schedule for cold symptoms. Has she tested for COVID at home? documented in this encounterAsht[facility]ula [facility]11-17-2023 Miscellaneous Notes* Telephone Encounter - Missy Owens - 05/31/2023 10:19 AM EST Patient has been identified by name and [...] and advise. Missy Owens documented in this encounterAshtabula [facility] Center03-09-2023 History and physical note * Jett Braxton MD - 09/20/2022 11:30 AM EST SUBJECTIVE: This is a 52 year old [...] more. Reports she will be seeing a podiatry assistant soon for it. 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 [...] color, texture, turgor normal, no suspicious rashes orlesions COLORECTAL CANCER SCREENING Never done SHINGRIX VACCINE(1 [...] diet of 1000 mg/day for under 50, 1200- 1500 mg/day for 50+ - Colorectal cancer screening [...] ICD10: E55.9 - VITAMIN D 25 HYDROXY Edith Munoz, LOCOMOTIVE ELECTRICIAN.CARD READER UPDATED HISTORY AND PHYSICAL EXAMINATION SERVICE DATE: 09/20/2022 SERVICE TIME: 10:42 AM PHYSICAL EXAM MUST BE COMPLETED ON ADMISSION The History and Physical (completed in the past 30 days) has been reviewed and the patient has beenexamined. The contents accurately reflect the patient's condition with the following additions or revisions since the H&P was completed. Examination indicates no changes. This H&P can be found in the attached. SIGNATURE: Jett Braxton III, MD PATIENT NAME: Angel Heaton DATE: September 20, 2022 TIME: 10:42 AM documented in this encounterAshtabula County Medical Center03-09-2023 Nurse Note* Ava Reyna RN - 09/20/2022 11:20 AM EST Arrived in phase II via cart. Left lateral position. Sedated, but responds to verbal stimuli. Colornormal; skin warm and dry. Respirations wnl and unlabored. Abdomen soft and with + bowel sounds in quads X 4. Patient resting comfortably. Dr. Braxton at with family to review procedure and recommendations. Ava Reyna RN documented in this encounterAshtabula [facility] Center02-08-2023 Miscellaneous Notes* Telephone Encounter - Haydee Love LPN - 08/22/2022 9:43 AM EST Patient telephoned and made aware of results and recommendations below. Voices understanding. Haydee Love LPN * Telephone Encounter - Edith Munoz APRN.CNP - 08/22/2022 7:30 AM EST Please call patient and let her know her total cholesterol and LDL ( bad cholesterol) have increased since last check and are considered borderline high. Recommend she continue to exercise and decreased saturated fats in diet. The rest of her blood work is in acceptable ranges. Edith Munoz APRN.CNP documented in this encounterAshtabula County Medical Center02-07-2023 Miscellaneous Notes* Telephone Encounter - Haydee Love LPN - 08/21/2022 3:02 PM EST Patient notified. Haydee Love LPN * Telephone Encounter - Edith Munoz APRN.CNP - 08/21/2022 2:44 PM EST Order for Golytely sent.. Edith Munoz APRN.CNP * Telephone Encounter - Rocio Aragon LPN - 08/21/2022 2:33 PM EST Patient stated she wants golytely no miralax. * Telephone Encounter - Edith Munoz APRN.CNP - 08/21/2022 2:07 PM EST She wants to do the Golytely instead of the miralax prep? Edith Munoz APRN.CNP * Telephone Encounter - Key Lima - 08/21/2022 10:52 AM EST Patient scheduled her colonoscopy on September 20, 2022 She is requesting to have Golytely Bowel Prep sent to [facility] [address] [place] [address] Mailed Golytely Bowel Prep Instructions to patient. documented in this encounterAshtabula County Medical Center02-07-2023 Instructions* Patient Instructions* Edith Munoz APRN.CNP - 08/21/2022 8:03 AM EST Images from [...] If you do not have a responsible driver guide (family member or friend) withyou to take you home, your exam cannot be done with sedation and will be cancelled. Please bring a list of all of your current medications, including any Nogo-zlq-Xacnzov medications with you. Medications If you take insulin, diabetic medications or blood thinners such as Coumadin (warfarin), Plavix (clopidogrel), Ticlid (ticlopidine hydrochloride), Agrylin (anagrelide), Xarelto (Rivaroxaban), Pradaxa(Dabigatran), Eliquis (Apixaban), and Effient (Prasugrel). You MUST [...] every 15 minutes for a total of 2glasses. You may continue to drink clear liquids up to (three) 3 hours before your exam. 2 06/2019 documented in this encounter[facility] History of Present illness Narrative* Edith Munoz APRN.CNP - 08/21/2022 7:57 AM EST 08/21/2022 Patient presents with: Physical SUBJECTIVE: This [...] more. Reports she will be seeing a podiatry assistant soon for it. 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 [...] color, texture, turgor normal, no suspicious rashes orlesions COLORECTAL CANCER SCREENING Never done SHINGRIX VACCINE(1 [...] diet of 1000 mg/day for under 50, 1200- 1500 mg/day for 50+ - Colorectal cancer screening [...] ICD10: E55.9 - VITAMIN D 25 HYDROXY Edith Munoz APRN.EUSEBIA Prescription instructions reviewed with patient as applicable. Patient advised if symptoms do not improve or if symptoms worsen sooner, to contact their primary care physician. Potential red flag symptoms discussed with the patient. Reviewed appropriate action plan to take if red flag symptoms occur. Patient agreeable to treatment plan. documented in this encounterAs[facility]06-27-[facility]22 History of Present illness Narrative* Jorge Kong MD - 01/08/2022 8:03 AM EDT Jorge Kong MD Department of Orthopaedics Orthopaedics [address] [facility] [address] Dept: [phone] Dept January 08, 2022 Consultation requested by [...] her wrists. 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 ASSESSMENT: M67.431 Ganglion cyst of volar aspect of right wrist (primary encounter diagnosis) M67.40 Ganglion cyst M18.11 Primary osteoarthritis of first carpometacarpal joint of right hand PLAN: We had a lengthy discussion about the treatment options for a volar ganglion cyst of the wrist. Therisks, benefits, alternatives and potential complications involving both operative and nonoperativetreatment reviewed. At this time she does state that she is quite busy and having any kind of surgery is a little bit less favorable for her. However, if he bothers her more in the future she may consider it certainly. FOLLOW UP INSTRUCTIONS: As needed Ms. Angel Heaton was advised as to contrast therapies and/or to take analgesics/anti-inflammatoriesas needed and all contraindications were reviewed. OBJECTIVE: Ms. Angel Heaton is a pleasant 51 year old [...] ganglion cyst near the radial pulse and FCRtendon. Its mobile with transillumination. At the base [...] Psych (no depression, anxiety) REFERRING PHYSICIAN: Ms. Angel Heaton was referred to ri for consultation by the following physician. This consultation note will be sent to the following physician by either mail or electronic medical record. Brisa Shah [address] [facility] [address] Brisa Shah MD [address] [facility] [address] Jorge Kong MD documented in this encounterAshtabula [facility]06-02-2022 History of Present illness Narrative* Brisa Shah MD - 12/14/2021 4:32 PM EDT Chief Complaint Patient presents with: Derm Problem: Cyst on right wrist getting bigger HPI Angel Heaton is a 51 year old female [...] retina surgery 02/2020. Vision change 2/2 cortisol Sulfa (Sulfonamide * Rash Current Medications [...] in detail. - CONSULT TO ORTHOPAEDICS Brisa Sahh MD [facility] Diagnosis Ganglion cyst- Primary Ganglion, unspecified documented in this encounter [facility]* Diagnosis Ganglion cyst of volar aspect of right wrist- Primary Ganglion cyst Ganglion, unspecified Primary osteoarthritis of first carpometacarpal joint of right hand Primary localized osteoarthrosis, hand [facility] Diagnosis Encounter for screening mammogram for breast cancer documented [facility] this encounter [facility]* Diagnosis Onset Date Resolution Status Encounter for routine gynecological examination noneactive [facility] Work Phone: Evaluation note* Diagnosis Annual physical exam- Primary Routine general medical examination at a health care facility Peanut allergy Allergy to peanuts Tinea versicolor Pityriasis versicolor Screening for colon cancer Special screening for malignant neoplasms, colon Screening for hyperlipidemia Screening for lipoid disorders Vitamin D insufficiency Unspecified vitamin D deficiency documented in this encounter [facility]* Diagnosis Encounter for screening for malignant neoplasm of colon- Primary Special screening for malignant neoplasms, colon Screening for colon cancer Special screening for malignant neoplasms, colon documented in this encounter [facility]* Diagnosis Encounter for screening mammogram for breast cancer documented in this encounter [facility]* Diagnosis Routine medical exam- Primary Routine general medical examination at a health care facility Encounter for screening mammogram for breast cancer Annual physical exam Routine general medical examination at a health care facility documented in this encounter [facility]* Diagnosis Annual physical exam- Primary Routine general medical examination at a health care facility Exercise-induced asthma Exercise induced bronchospasm Peanut allergy Allergy to peanuts Retinal vascular abnormality Other intraretinal microvascular abnormalities Complex tear of medial meniscus of right knee, unspecified whether old or current tear, sequela documented in this encounter [facility]* Diagnosis Onset Date Resolution Status Admit Date Encounter for routine gynecological examination noneactive December 152024 1:00pm [facility] Work Phone: Reason for referral (narrative)* Diagnostic Procedure Only (Routine) - Pending Review Specialty Diagnoses / Procedures Referred By Dwayne graves Referred To Contact [facility] Diagnoses Encounter for screening mammogram for breast cancer Procedures WOLFGANG SCREENING SCREENING MAMMOGRAPHY BI 2-VIEW BREAST INC CAD Brisa Shah MD [address] [place] [address] [facility] [address] [place] [address] Referral ID Status Reason Start Date Expiration Date Visits Requested Visits Authorized [id number] Pending Review Auto-Generat ed Referral 05/23/2022 06/22/2023 1 1 [facility] Outpatient Procedure (Routine) - Pending Review Specialty Diagnoses / Procedures Referred By Dwayne graves Referred To Contact [facility] Diagnoses Screening for colon cancer Procedures COLONOSCOPY SCREENING COLONOSCOPY FLX DX W/COLLJ SPEC WHEN PFRMD Edith Munoz APRN.CNP [address] [place] [address] [facility] [address] [place] [address] Referral ID Status Reason Start Date Expiration Date Visits Requested Visits Authorized [id number] Pending Review Auto-Generat ed Referral 08/21/2022 08/21/2023 1 1 [facility] ([facility]ative)* Outpatient Procedure (Routine) - Closed Specialty Diagnoses / Procedures Referred By Dwayne graves Referred To Contact [facility] Diagnoses Screening for colon cancer Procedures COLONOSCOPY SCREENING COLONOSCOPY FLX DX W/COLLJ SPEC WHEN PFRMD Edith Munoz APRN.CNP [address] [place] [address] [facility] [address] [place] [address] Referral ID Status Reason Start Date Expiration Date V isits Requested Visits Authorized [id number] Closed Auto-Generate d Referral 08/21/2022 08/21/2023 1 1 [facility] for referral (narrative)* Diagnostic Procedure Only (Routine) - Pending Review Specialty Diagnoses / Procedures Referred By Dwayne graves Referred To Contact [facility] Diagnoses Encounter for screening mammogram for breast cancer Procedures WOLFGANG SCREENING SCREENING MAMMOGRAPHY BI 2-VIEW BREAST INC Brisa Genao MD [address] [place] [address] [facility] [address] [place] [address] Referral ID Status Reason Start Date Expiration Date Visits Requested Visits Authorized [id number] Pending Review Auto-Generat ed Referral 07/24/2023 08/22/2024 1 1 [facility] for referral (narrative)* Diagnostic Procedure Only (Routine) - New Request Specialty Diagnoses / Procedures Referred By Dwayne graves Referred To Contact [facility] Diagnoses Encounter for screening mammogram for breast cancer Procedures WOLFGANG SCREENING W JORGE SCREENING DIGITAL BREAST TOMOSYNTHESIS BI SCREENING MAMMOGRAPHY BI 2-VIEW BREAST INC Brisa Genao MD [address] [place] [address] [facility] [address] [address] Referral ID Status Reason Start Date Expiration Date Visits Requested Visits Authorized [id number] New Request Auto-Generat ed Referral 07/31/2025 1 1 [facility])No reason for referral information [facility] Work Phone: Reason for visit Narrative* Outpatient Procedure (Routine) - Closed Specialty Diagnoses / Procedures Referred By Dwayne graves Referred To Contact [facility] Diagnoses Screening for colon cancer Procedures COLONOSCOPY SCREENING COLONOSCOPY FLX DX W/COLLJ SPEC WHEN PFRMD Edith Munoz APRN.CARD READER [address] [place] [address] [facility] [address] [place] [address] Referral ID Status Reason Start Date Expiration Date V isits Requested Visits Authorized [id number] Closed Auto-Generate d Referral 08/21/2022 08/21/2023 1 1 [facility] Summary Purpose Family History Relationship Condition Age at Onset Recorded Date/T satnam Not Specified Diabetes mellitus Unknown mother Diabetes mellitus Unknown grandfather Diabetes mellitus Unknown grandmother Diabetes mellitus Unknown brother Diabetes mellitus Unknown sister Diabetes mellitus Unknown Relationship Condition Age at Onset Recorded Date/T satnam unrelated friend Diabetes mellitus Unknown mother Diabetes mellitus Unknown grandfather Diabetes mellitus Unknown grandmother Diabetes mellitus Unknown brother Diabetes mellitus Unknown sister Diabetes mellitus Unknown Advance Directives Documents on File Type Date 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 Advance Directives and Living Will Reason for Referral Status Reason Specialty Diagnoses / Procedures Referred By Contact Referred To Contact Authorized Orthopedic Surgery Diagnoses Sprain of left knee, unspecified ligament, initial encounter [facility] Johnkor[facility] Sotelo, [place] [address] [place] [address] Salvador Peña MD [address] [place] [address] Specialty Diagnoses / Procedures Referred By Dwayne t Referred To Contact Orthopedics Diagnoses Ganglion cyst Procedures CONSULT TO ORTHOPAEDICS OFFICE/OUTPATIENT [facility] 60-74 MINUTES Brisa Shah MD [address] [place] [address] Referral ID Status Reason Start Date Expiration Date Visits Requested Visits Authorized [id number] Authorized PCP Requested Referral 12/14/2021 12/14/2022 1 1 Instructions * Patient Instructions* John Saab, CARD READER - 09/12/2018 7:35 PM EST Motrin/tylenol for [...] your doctor if you can take an ojhl-hxa-ztpyjst pain medicine, such as acetaminophen (Tylenol),ibuprofen (Advil, [...] Log into your personal health record on [email or web address] and enter N406 in the Education box to learn more about Knee Sprain: Care Instructions. Current as of: April 03, 2018 Content Version: 11.9 4363-5285 [employer]. Care instructions adapted under license by your healthcare professional. If you have questions about a medical condition or this instruction, always ask your healthcare professional. [employer] disclaims any warranty or liability for your use of this information. in this encounter History of Present Illness * John Saab CNP - 09/12/2018 7:05 PM EST PATIENT NAME: Angel Heaton [facility] [address] [place] [id number] : 1970 DATE OF VISIT: 09/12/2018 #: [id number] PROVIDER: John Saab CNP Chief Complaint Patient presents with Knee [...] left knee. 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) January 11, 2025 1:00 pm Reason for Visit Admit Date Encounter for routine gynecological exam ination January 11, 2025 1:00pm Medications Administered Section Inactive Administered Medications - [...] Given 09/20/2022 10:56 AM EST 50 mcg Given 09/20/2022 10:49 AM EST 50 mcg lactated ringers iv infusion 30 mL/hr, INTRAVENOUS, CONTINUOUS, Starting on Olamide 09/20/22 at 1100, Until Olamide 09/20/22 at 1122, Preprocedure New Bag/Syringe/Bottle 09/20/2022 10:40 AM EST 30 mL/hr 30 mL/hr midazolam 1-5 mg injection (VERSED) 1-5 mg, INTRAVENOUS, DIRECTED, Starting on Olamide 09/20/22 at 1100, Until Olamide 09/20/22 at 1459, DOSING DIRECTED BY PHYSICIAN FOR PROCEDURAL SEDATION ONLY, Intraprocedure Given 09/20/2022 10:58 AM EST 2 mg Given 09/20/2022 10:53 AM EST 2 mg Given 09/20/2022 10:49 AM EST 3 mg ondansetron (PF) 4 mg injection (ZOFRAN) 4 mg, INTRAVENOUS, DIRECTED, Starting on Olamide 09/20/22 at 1130, Until Olamide 09/20/22 at 1529, DOSING DIRECTED BY PHYSICIAN FOR PROCEDURAL SEDATION ONLY, Intraprocedure Given 09/20/2022 11:07 AM EST 4 mg Additional Source Comments INFORMATION SOURCE (unrecogn ized section and content) DATE CREATED AUTHOR 01/01/2018 [facility] DATE CREATED AUTHOR AUTHOR'S ORGANIZ ATION 02/26/2018 [facility] DATE CREATED AUTHOR AUTHOR'S ORGANIZ ATION 04/03/2018 [facility] DATE CREATED AUTHOR AUTHOR'S ORGANIZ ATION 09/17/2018 [facility] DATE CREATED AUTHOR AUTHOR'S ORGANIZ ATION 12/24/2018 [facility] DATE CREATED AUTHOR AUTHOR'S ORGANIZ ATION [facility] DATE CREATED AUTHOR AUTHOR'S ORGANIZ ATION 04/21/2021 [facility] DATE CREATED AUTHOR AUTHOR'S ORGANIZ ATION 12/10/2024 [facility] DATE CREATED AUTHOR AUTHOR'S ORGANIZ ATION 01/08/2025 [facility] Reason for Visit (unrecogniz ed section and content) Reason Comments Knee Pain Left knee pain since last evening. Left knee swollen. Denies injury. Reason Comments Derm Problem Cyst on right wrist getting bigger Reason Comments New Cyst Specialty Diagnoses / Procedures Referred By Contac t Referred To Contact Orthopedics Diagnoses Ganglion cyst Procedures CONSULT TO ORTHOPAEDICS OFFICE/OUTPATIENT [facility] 60-74 MINUTES Brisa Shah MD [address] [place] [address] Referral ID Status Reason Start Date Expiration Date V isits Requested Visits Authorized [id number] Closed PCP Requested Referral 12/14/2021 12/14/2022 1 1 Reason Comments Physical Reason Comments Orders Reason Comments Results Reason Onset Date Comments Refill Request 05/31/2023 Reason Comments Appointment Reason Comments Yearly Exam last seen 2 years ag o <item> Privacy Markings (unrecogniz ed section and [...] or prosecute any alcohol or drug abuse patient.[facility] CenterIn the event this information is protected by the Federal Confidentiality of Alcohol and Drug Abuse Patient Records regulations: The Federal rules restrict any use of the information to criminally investigate or prosecute any alcohol or drug abuse patient.[facility] CenterIn the event this information is protected by the Federal Confidentiality of Alcohol and Drug Abuse Patient Records regulations: The Federal rules restrict any use of the information to criminally investigate or prosecute any alcohol or drug abuse patient.[facility] CenterIn the event this information is protected by the Federal Confidentiality of Alcohol and Drug Abuse Patient Records regulations: The Federal rules restrict any use of the information to criminally investigate or prosecute any alcohol or drug abuse patient.[facility] CenterIn the event this information is protected by the Federal Confidentiality of Alcohol and Drug Abuse Patient Records regulations: The Federal rules restrict any use of the information to criminally investigate or prosecute any alcohol or drug abuse patient.[facility] CenterIn the event this information is protected by the Federal Confidentiality of Alcohol and Drug Abuse Patient Records regulations: The Federal rules restrict any use of the information to criminally investigate or prosecute any alcohol or drug abuse patient.[facility] CenterIn the event this information is protected by the Federal Confidentiality of Alcohol and Drug Abuse Patient Records regulations: The Federal rules restrict any use of the information to criminally investigate or prosecute any alcohol or drug abuse patient.[facility] CenterIn the event this information is protected by the Federal Confidentiality of Alcohol and Drug Abuse Patient Records regulations: The Federal rules restrict any use of the information to criminally investigate or prosecute any alcohol or drug abuse patient.[facility] CenterIn the event this information is protected by the Federal Confidentiality of Alcohol and Drug Abuse Patient Records regulations: The Federal rules restrict any use of the information to criminally investigate or prosecute any alcohol or drug abuse patient.[facility] CenterIn the event this information is protected by the Federal Confidentiality of Alcohol and Drug Abuse Patient Records regulations: The Federal rules restrict any use of the information to criminally investigate or prosecute any alcohol or drug abuse patient.[facility] CenterIn the event this information is protected by the Federal Confidentiality of Alcohol and Drug Abuse Patient Records regulations: The Federal rules restrict any use of the information to criminally investigate or prosecute any alcohol or drug abuse patient.[facility] CenterIn the event this information is protected by the Federal Confidentiality of Alcohol and Drug Abuse Patient Records regulations: The Federal rules restrict any use of the information to criminally investigate or prosecute any alcohol or drug abuse patient.[facility] CenterIn the event this information is protected by the Federal Confidentiality of Alcohol and Drug Abuse Patient Records regulations: The Federal rules restrict any use of the information to criminally investigate or prosecute any alcohol or drug abuse patient.[facility] Care Teams (unrecognized sec tion and content) Roof Tiler Relationship Specialty Start Date End Date Brisa Shah MD [address] [place] [address] PCP - General Family Practice 01/31/18 Roof Tiler Relationship Specialty Start Date End Date Brias Shah MD [address] [place] [address] PCP - General Family Practice 01/31/18 Roof Tiler Relationship Specialty Start Date End Date Brisa Shah MD [address] [place] [address] PCP - General Family Medicine 01/31/18 Roof Tiler Relationship Specialty Start Date End Date Brisa Shah MD [address] [place] [address] PCP - General Family Medicine 01/31/18 Roof Tiler Relationship Specialty Start Date End Date Brisa Shah MD [address] [place] [address] PCP - General Family Medicine 01/31/18 Roof Tiler Relationship Specialty Start Date End Date Brsia Shah MD [address] [place], [place] [address] [phone] PCP - General Family Medicine 01/31/18 Roof Tiler Relationship Specialty Start Date End Date Brisa Shah MD [address] [place] [address] PCP - General Family Medicine 01/31/18 Roof Tiler Relationship Specialty Start Date End Date Brisa Shah MD [address] [place] [address] PCP - General Family Medicine 01/31/18 Roof Tiler Relationship Specialty Start Date End Date Brisa Shah MD [address] [place] [address] PCP - General Family Medicine 01/31/18 Team Status: Active Member Role Status Dates Dr. Celestine Shah MD Primary Care Provider Acti ve Team Status: Inactive Member Role Status Dates Dr. Celestine Shah MD Primary Care Provider, Ref erring Provider Active Dr. Neisha Avitia DO Attending Provider Activ e Team Status: Inactive Member Role Status Dates Dr. Celestine Shah MD Primary Care Provider Acti ve Dr. Neisha Avitia DO Attending ProviderSkiping Provider Active Roof Tiler Relationship Specialty Start Date End Date Brisa Shah MD [address] [place] [address] PCP - General Family Medicine 01/31/18 Podlogar, Edith, LOCOMOTIVE ELECTRICIAN.CARD READER [address] [place] [address] Booking Clerk Family Medicine 06/20/24 Roof Tiler Relationship Specialty Start Date End Date Brisa Shah MD [address] [place] [address] PCP - General Family Medicine 01/31/18 Podlogar, Edith, LOCOMOTIVE ELECTRICIAN.CARD READER [address] [place] [address] Booking Clerk [facility] Medicine 06/20/24 Roof Tiler Relationship Specialty Start Date End Date Brisa Shah MD [address] [place] [address] PCP - General Family Medicine 01/31/18 Podlogar, Edith, LOCOMOTIVE ELECTRICIAN.CARD READER [address] [place] [address] Booking Clerk Family Medicine 06/20/24 Team Status: Active Member Role/Relationship Status Dates Dr. Celestine Shah MD Primary Care Provider Acti ve Team Status: Active Member Role/Relationship Status Dates Dr. Celestine Shah MD Primary Care Provider Acti ve Start: January 11, 2025 Dr. Neisha Avitia DO Attending Provider Activ e Start: January 11, 2025 Dr. Neisha Avitia DO Referring Provider Activ e Start: January 11, 2025 Team Status: Inactive Member Role/Relationship Status Dates Dr. Celestine Shah MD Primary Care Provider Acti ve Start: January 11, 2025 End: January 11, 2025 Dr. Celestine Shah MD Referring Provider Active Start: January 11, 2025 End: January 11, 2025 Dr. Neisha Avitia DO Attending Provider Activ e Start: January 11, 2025 End: January 11, 2025 Goals (unrecognized section and content) Goals may be documented in a n alternate sectionGoals may be documented in an alternate sectionGoals may be documented in an alternate section FOR RECORDS PERTAINING TO PATIENTS WHO ARE [...] BE BASED ON THE PRIMARY CLINICAL RECORDS. Stop Being Watched [facility]. provides no warranty or guarantee of the accuracy or completeness of information in this document.
[2025-01-15 00:07] LABS: HPV APTIMA, High Risk Negative (Negative)
== END | disposition home or self-care (01) ==
LOC: OPBI 12:27
PROVIDERS: PCP Family Medicine; Referring Provider Obstetrics & Gynecology; Visit Provider Obstetrics & Gynecology
DX: Z12.31 Encounter for screening mammogram for malignant neoplasm of breast (principal)
CPT/HCPCS: 77063; 77067; 87624; 88175; G0145